=== PATIENT | male | born 1970 | race Caucasian/White ===

== ENCOUNTER 2017-07-31 07:23 | Outpatient (CLI) | payer BC ==
--- NOTE | 2017-07-31 11:07 | MRI ---
MRI ABDOMEN WITHOUT CONTRAST MRCP: Date: 07/31/17 HISTORY: Pancreatitis. FINDINGS: Correlation is made with the CT scan of 05/26/16. The liver demonstrates signal dropout on the [id number] imaging compared to the in-phase imaging, consistent with diffuse fatty infiltration. There is a 6.0 mm cyst in the dome of the liver. A tiny cyst is also seen in the left lobe of the liver. No abnormal biliary ductal dilatation is seen. The patient is post cholecystectomy. The spleen measures 12.5 cm in length. The pancreas, adrenal glands , and left kidney are normal. There are cysts in the right kidney, the largest measuring 2.3 cm. No peripancreatic inflammatory changes or fluid are seen. No free fluid is seen in the abdomen. No c holedocholithiasis is noted. Pancreatic duct is of normal caliber. No lymphadenopathy seen in the ab domen. There is no evidence of aneurysmal dilatation of the abdominal aorta. Bone marrow signal is n ormal. There is a 1.5 cm cystic lesion/fluid collection in the retroperitoneum just below the home theater experience expert ior abdominal wall at the level of the superior pole of the right kidney, which was also seen on the CT scan of 05/26/16. IMPRESSION: 1. Fatty liver. 2. Status post cholecystectomy without evidence of abnormal biliary ductal dilatation or choledocho lithiasis. 3. Right renal and tiny hepatic cysts. POS: [facility]
--- OUTSIDE RECORDS SUMMARY | 2017-08-01 00:51 | XMS | Clinical Summary ---
:1970 Author Organization [facility] Address [address] [place] [address] Phone Care Team Providers Name Role Phone , Primary Care Provider Unavailable Allergies Active Allergy Reactions Severity Noted Date Comments Lorazepam High 08/15/2015 Hallucinations Meperidine Anaphylaxis High 12/13/2013 Erythromycin Rash Low 12/13/2013 Tetracyclines Rash Low 12/13/2013 Current Medications Prescription Sig. Disp. Refills Start Date End Date Status rizatriptan (MAXALT-CUTCH CLEANER) Take 10 mg by Active 10 MG disintegrating mouth as needed. tablet May repeat in 2 hours if needed ondansetron (ZOFRAN) 4 Take 1 tablet (4 30 tablet 1 12/16/2013 Active MG tablet mg total) by mouth 3 (three) times daily as needed for Nausea. [id number]-ricmzteq-yhvccsz Take 72,000 Active (CREON) 36,000-114,000- units of lipase 180,000 unit CpDR by mouth 3 capsule (three) times daily. traMADol (ULTRAM-ER) 200 Take 200 mg by Active MG 24 hr tablet mouth daily. Active Problems Problem Noted Date Abdominal pain 12/14/2013 Social History Tobacco Use Types Packs/Day Years Used Date Never Smoker Smokeless Tobacco: Never Used Alcohol Use Drinks/Week oz/Week Comments No Sex Assigned at Date Recorded Not on file Last Filed Vital Signs Vital Sign Reading Time Taken Blood Pressure 124/96 08/15/2015 6:15 PM A CLASS LINEMAN Pulse 67 08/15/2015 6:15 PM A CLASS [facility]EMAN Temperature 36.6 C (97.9 F) 08/15/2015 6:05 PM A CLASS LINEMAN Respiratory Rate 18 08/15/2015 6:15 PM A CLASS LINEMAN Oxygen Saturation 95% 08/15/2015 6:15 PM A CLASS LINEMAN Inhaled Oxygen Concentration - - Weight 118.9 kg (262 lb 2 oz) 08/15/2015 12:25 PM A CLASS LINEMAN Height 185.4 cm (6' 1") 08/15/2015 12:25 PM A CLASS LINEMAN Body Mass Index 34.58 08/15/2015 12:25 PM A CLASS LINEMAN Plan of Treatment Not on file Implants Implanted Type Area Cast Iron Dipper Device Expiration Model / Identifier Date Serial / Lot Stent,Pancreatic Set Geenen 5fr 9cm - [id number] Stents-[facility] [id number] / Implanted:Qty: 1 on 12/14/2013 by Derik Cortés MD ripheral / [id number] Stent,Pancreatic Set Geenen 5fr 3cm - [id number] Stents-[facility] [id number] / Implanted:Qty: 2 on 12/14/2013 by Derik Cortés MD ripheral / [id number] Naviflex Panc Del Sys 7fr Rx - [id number] Stents-[facility] 12/03/2015 3506 / Implanted:Qty: 1 on 08/15/2015 by Derik Cortés MD ripheral SCI: [id number] / LOGY [id number] Results Not on filefrom Last 3 Months
== END 2017-07-31 07:24 | disposition home or self-care (01) ==
LOC: MRI 07:23
PROVIDERS: ATTEND Internal Medicine Gastroenterology
DX: K85.90 Acute pancreatitis without necrosis or infection, unspecified (principal); R10.11 Right upper quadrant pain; K76.0 Fatty (change of) liver, not elsewhere classified; K80.50 Calculus of bile duct without cholangitis or cholecystitis without obstruction; N28.1 Cyst of kidney, acquired; K76.89 Other specified diseases of liver; Z90.49 Acquired absence of other specified parts of digestive tract
CPT/HCPCS: 74181

== ENCOUNTER 2018-04-17 06:24 | Inpatient (IN) | payer OTHER, BC ==
[2018-04-17] MEDS ORDERED: Promethazine HCl 25 MG/ML VIAL ONE (06:36)
[2018-04-17 07:07] LABS: #Basophils 0.1 thou/uL (0.0-0.2); #Lymphocytes 1.2 thou/uL (1.20-3.40); #Monocytes 0.5 thou/uL (0.11-0.59); #Neutrophils 8.3 thou/uL (1.40-6.50); %Basophils 0.8 % (0.0-1.0); %Lymphocytes 11.5 % (21.0-51.0); %Monocytes 4.7 % (0.0-10.0); %Neutrophils 82.9 % (42.0-75.0); Hemoglobin 19.2 g/dL (14.0-18.0); Mean Corpuscular Hemoglobin 29.5 pg (27.0-31.0); Mean Corpuscular Volume 84.3 fL (78.0-98.0); Mean Platelet Volume 8.5 fL (7.4-10.4); Platelet Count 184 thou/uL (130-400); RBC Distribution Width 11.4 % (11.5-14.5)
[2018-04-17 07:16] LABS: ALT (SGPT) 42 U/L (8-55); AST (SGOT) 29 U/L (5-34); Albumin 4.6 g/dL (3.5-5.0); Alkaline Phosphatase 98 U/L (40-150); Anion Gap 16 mmol/L (10-20); BUN (Urea Nitrogen) 16 mg/dL (8.9-20.6); Bilirubin, Total 1.1 mg/dL (0.2-1.2); Calc. Creatinine Clearance 0 mL/min (70-130); Calcium 9.3 mg/dL (7.8-10.44); Carbon Dioxide 19 mmol/L (22-29); Chloride 109 mmol/L (98-107); Estimated GFR-MDRD 70; Globulin 3.2 g/dL (2.4-3.5); Glucose 136 mg/dL (70-105); Lipase 17 U/L (8-78); Potassium 3.9 mmol/L (3.5-5.1); Protein, Total 7.8 g/dL (6.0-8.3); Sodium 140 mmol/L (136-145)
--- NOTE | 2018-04-17 07:46 | RAD ---
ACUTE ABDOMINAL SERIES: Date: 04/17/18 INDICATION: Cholecystectomy, abdominal pain, and vomiting. FINDINGS: There is mild right basilar atelectasis. Bowel gas pattern is unobstructed. There are cholecystectomy clips within the right upper quadrant. No acute osseous abnormality is evident. IMPRESSION: No acute abnormality. POS: [facility]
[2018-04-17 07:55] LABS: CKMB 1.2 ng/mL (0-6.6); Troponin I Less than 0.010 ng/mL (< 0.028)
--- NOTE | 2018-04-17 09:58 | CT ---
ABDOMEN AND PELVIS CT NONCONTRAST: CLINICAL HISTORY: Nausea and vomiting. Abdominal pain. COMPARISON: 05/26/2016 FINDINGS: There is no evidence of urolithiasis or obstructive uropathy. The bowel is incompletely evaluated wi thout IV or enteric contrast. There is a stable, approximately 13 mm in diameter soft tissue nodule of the posterior right retroperitoneum. There is splenic granulomatous calcification, evidence of a prior cholecystectomy. Prostate calcifications are present. Imaged lung bases again reveal areas of interstitial and ground glass opacity and granulomatous calcification. There is scattered osseous d egenerative change. IMPRESSION: 1. No urolithiasis or obstructive uropathy. 2. Stable soft tissue nodule of the posterior retroperitoneum. 3. Evaluation otherwise limited on the basis of the noncontrast technique. POS: [facility]
[2018-04-17 11:32] VITALS: BMI 36.6
[2018-04-17] MEDS ORDERED: Sodium Chloride 0.9% 1,000 ML IV SCH (12:15)
[2018-04-17] MEDS ORDERED: HYDROcodone/Acetaminophen 7.5/325 mg Tablet PO PRN (12:52)
--- NOTE | 2018-04-17 13:28 | HP ---
DATE OF ADMISSION: 04/17/2018 CHIEF COMPLAINT: Abdominal pain. 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 The patient usually gets 3 stents in his com mon bile duct, which was the procedure he has been used to at one of the [facility] nics, and the patient has a close followup with Dr. Barnett here in Clinic in [place]. The gt moran was in his usual state of health until yesterday he developed sudden onset of abdominal pain wi th nausea, vomiting, and diarrhea. Most of his symptoms are exacerbation start this way, but patient did take antibiotic 2 months ago for his right ear infection. The patient states he has 3-4 episode s of diarrhea, which is watery in nature, with no fevers or no chills. Denies having any chest pain at this time. Denies having any dizziness or headache. No neck stiffness. No burning on passing ur ine. No blood in the stool. Abdominal pain is located in the right upper quadrant, nonradiating, pa in of 9 on 10 intensity, only relieved with Dilaudid which he got in the emergency room. The patient had a history of gallbladder removal in the past. Otherwise, he has no other known comorbidities. 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 PAST SURGICAL HISTORY: History of cholecystectomy and appendectomy. SOCIAL HISTORY: The patient is not a nonsmoker. No history of alcohol, no history of illicit drug u se. FAMILY HISTORY: The patient has a family history of type 2 diabetes mellitus in one of the family me mbers. ALLERGIES: DEMEROL, ERYTHROMYCIN, and TETRACYCLINE. HOME MEDICATIONS: The patient is on Zofran at home. REVIEW OF SYSTEMS: All 12 systems are reviewed with the patient thoroughly and found to be negative at this time except the ones described in HPI. Constitutional: Weight loss or gain, sense of well-being, ability to conduct usual activities, exerc ise tolerance. Skin/Breast: Rash, itching, changes in hair growth or loss, nail changes, breast lumps, tenderness, swelling, nipple discharge. Eyes: Vision, double vision, tearing, blind spots, pain. ENT/Mouth: Headaches (location, time of onset, duration, precipitating factors), vertigo, lightheadedness, injury. Vision, double vision, tearing, blind spots, pain, nose b leeding, colds, obstruction, discharge, dental difficulties, gingival bleeding, dentures, neck stiffn ess, pain, tenderness, masses in thyroid or other areas Cardiovascular: Precordial pain, substernal distress, palpitations, syncope, dyspnea on exertion, or thopnea, nocturnal paroxysmal dyspnea, edema, cyanosis, hypertension, heart murmurs, varicosities, ph lebitis, claudication. Respiratory: Pain, shortness of breath, wheezing, stridor, cough, hemoptysis, fever or night sweats Gastrointestinal: Poor appetite, dysphagia, indigestion, abdominal pain, heartburn, eructation, naus ea, vomiting, hematemesis, jaundice, constipation, or diarrhea, abnormal stools (lucía-colored, tarry, bloody, greasy, foul smelling), flatulence, hemorrhoids, recent changes in bowel habits. Genitourinary: Urgency, frequency, dysuria, nocturia, hematuria, polyuria, oliguria, unusual (or tenzin nge in) color of urine, stones, hesitancy, change in size of stream, dribbling, acute retention or in continence, libido, potency. Musculoskeletal: Pain, swelling, redness or heat of muscles or joints, limitation, of motion, muscular weakness, atrophy, cramps. Neurologic/Psychiatric: Convulsions, paralyses, tremor, incoordination, parasthesias, difficulties w ith memory of speech, sensory or motor disturbances, or muscular coordination (ataxia, tremor), emoti onal problems, anxiety, depression, previous psychiatric care, unusual perceptions, hallucinations. Allergy/Immunologic: Skin rash, anemia, bleeding tendency, polydipsia, polyuria, intolerance to heat or cold. PHYSICAL EXAMINATION: VITAL SIGNS: Blood pressures are 118/72, heart rate is 98, respiratory rate 20, saturation 92%. GENERAL: The patient is moderately built and moderately nourished, does not appear to be in acute di stress at this time. He is alert and oriented x3. HEENT: Atraumatic, normocephalic. PERRLA. Extraocular muscles intact. Oral mucosa pink and moist. CARDIOVASCULAR: S1, S2 normal. No murmurs, rubs or gallops. LUNGS: Bilateral air entry was equal. No wheezing, no crackles. ABDOMEN: Distended. Tenderness noted in the right upper quadrant. No guarding, no rebound tenderne ss. Bowel sounds were normal. MUSCULOSKELETAL: No calf tenderness. No pedal edema. No joint tenderness, no joint swelling. SKIN: No cyanosis, no erythema, no rash, no pallor. CENTRAL NERVOUS SYSTEM: Cranial nerve examination II-XII intact. No focal deficits were noted. LABORATORY DATA: Sodium 140, potassium 3.9, chloride 109, BUN is 16, creatinine 1.12, blood sugar is 136. WBC 10.0, hemoglobin is 19.2, hematocrit is 54.8. ASSESSMENT AND PLAN: 1. Acute on chronic pancreatitis. 2. Severe dehydration. 3. Hemoconcentration and polycythemia. 4. Severe abdominal pain. PLAN: 1. Plan is to start the patient on IV fluids 200 mL an hour. I discussed the case with Dr. Mitchell. The patient has a history of recurrent pancreatitis with no elevation of his pancreatic enzymes, whi ch is his usual symptoms which he has as the as a sphincter of Oddi dysfunction. So the plan is to t reat with IV pain medications with Dilaudid DAIRY FEED MIXING OPERATOR as the patient is requesting which is the only medica tion which helps him. At this point, we will consult anesthesia for the Dilaudid DAIRY FEED MIXING OPERATOR pump. 2. The patient has a markedly elevated hemoglobin with hemoconcentration. At this time, we will luis eduardo at this as a hemoconcentration, but we will evaluate with a serum ferritin and iron levels. Need to rule out any evidence of hemochromatosis. Hemochromatosis contributing to his right upper quadrant p ains. 3. The patient is severely dehydrated. As I explained above, we will closely monitor the urine outp ut. 4. DVT prophylaxis, Lovenox 40 mg subcu. I spent 75 minutes with this patient.
[2018-04-17] MEDS: Ketorolac Tromethamine 30 MG/ML VIAL IVP PRN ×2 (13:48→21:30)
[2018-04-17] MEDS: Sodium Chloride 0.9% 1,000 ML IV SCH ×3 (13:52→21:34)
[2018-04-17 14:04] LABS: Iron 61 ug/dL (65-175); Iron Binding Capacity, Total 244 mcg/dL (261-462)
[2018-04-17] MEDS: Promethazine HCl 25 MG/ML VIAL SLOW IVP PRN ×2 (14:31→21:32)
[2018-04-17] MEDS ORDERED: Naloxone HCl 0.4 mg/ml Vial IV PRN (16:19)
[2018-04-17] MEDS ORDERED: diphenhydrAMINE 25 MG CAP PO PRN (16:23)
[2018-04-17] MEDS ORDERED: Promethazine HCl 25 MG/ML VIAL IM PRN (16:23)
[2018-04-17] MEDS ORDERED: Zolpidem Tartrate 5 MG TAB PO PRN (16:23)
[2018-04-17] MEDS: HYDROmorphone 10 mg/100 ml CADD IV PRN (17:27)
[2018-04-17] MEDS: Ondansetron HCl/PF 4 MG/2 ML Vial IVP PRN (17:43)
[2018-04-18] MEDS: Ondansetron HCl/PF 4 MG/2 ML Vial IVP PRN ×4 (01:05→18:19)
[2018-04-18] MEDS: Sodium Chloride 0.9% 1,000 ML IV SCH ×4 (03:45→20:00)
[2018-04-18] MEDS: Promethazine HCl 25 MG/ML VIAL SLOW IVP PRN ×4 (04:48→21:32)
[2018-04-18] MEDS: Ketorolac Tromethamine 30 MG/ML VIAL IVP PRN ×2 (04:48→18:18)
--- NOTE | 2018-04-18 04:57 | CON ---
DATE OF CONSULTATION: 04/17/2018 REASON FOR CONSULTATION: Abdominal pain. HISTORY OF PRESENT ILLNESS: Mr. Oliveros is a pleasant 47-year-old gentleman with a past medical hist ory of chronic pancreatitis of idiopathic etiology. He has previous treatments with cholecystectomy about 9 years ago. He did have a pancreatic sphincterotomy for diagnosis of sphincter of Oddi dysfun ction. He has previously had pancreatic stent placements on and off in [place], [place], the [facility] and then after moving here, I had him see Dr. Derik Cortés in [place]. He had pancreatit is since then and in early 2014, I removed those biliary stents. He has done well since that time [facility] for the admission in 08/2015 and intermittent bouts of abdominal pain, which has been attributed to chronic pancreatitis. He had a stent replaced in 08/2015 and ultimately after 8 weeks the stent fell out on its own and did not have to be removed. He reports that beginning last night after eating a [employer], he had severe right upper quadrant a bdominal pain, some radiation to the back, some vomiting, and diarrhea. He tried to treat this at [facility] with Bentyl and Zofran, but it did not improve, he continued to have vomiting through the night un til ultimately came to the emergency room. His son was ill too, but got better much more quickly. I n the emergency room, blood pressure is 139/79, pulse 112. He is afebrile. He was given 2 liters of fluid, Dilaudid, and Phenergan. LABORATORY DATA AND X-RAY FINDINGS: Labs are drawn, which showed white count of 10, hemoglobin of 19 .2. His baseline hemoglobin is about 16 to 17. He had platelet count of 184. His base met profile was notable for sodium 140, potassium 3.9, bicarbonate 19, chloride 109, BUN and creatinine were 16 a nd 1.2, glucose was 136. Liver function tests were normal. Lipase was 17, AST was 29, ALT was 42, a lkaline phosphatase 98, total protein 7.8. Albumin was 4.6. PAST MEDICAL HISTORY: Chronic pancreatitis with history as outlined above, it is felt to be idiopath ic, extensive evaluations of pancreatic stent [place] and [facility] were negative here. We did obtain celiac testing and testing for autoimmune hepatitis, which were normal. He has had do cumented scarring of the pancreas on endoscopic ultrasound. Issues that cause flares were unknown. Left renal calculi with ureteral colic in 05/2016. PAST SURGICAL HISTORY: Cholecystectomy, arthroscopic knee surgery, pancreatic duct stents in the pas t, multiple times. ALLERGIES: TETRACYCLINE, ATIVAN, ERYTHROMYCIN, AZATHIOPRINE, and DEMEROL. MEDICATIONS HERE: Lovenox, [place], normal saline at 200 an hour. SOCIAL HISTORY: Negative for alcohol, drugs, tobacco. FAMILY HISTORY: Negative for familial pancreatitis, pancreatic disease, Crohn's or inflammatory kerry l disease or autoimmune diseases. REVIEW OF SYSTEMS: Negative for weight loss, fever, chills, hematemesis, melena, hematochezia, short ness of breath, dyspnea on exertion, cough, wheezing, chest pain, orthopnea, dyspnea, palpitations, o r arrhythmias, lower extremity swelling unifocal or muscle weaknesses, seizures, spasms, rashes, prur itus, or icterus. There are no urinary symptoms. There is no dysuria, frequency, or urgency. PHYSICAL EXAMINATION: GENERAL: Patient is resting comfortably in bed. VITAL SIGNS: Temperature is 98.1, pulse 98, blood pressure 118/72, respirations 18, O2 sat 92%. HEENT: Oropharynx without lesions, mouth is moist. NECK: Supple. LUNGS: Clear. HEART: Regular and rhythm without clicks or murmurs. ABDOMEN: Mildly tender without any guarding or rebound. Positive bowel sounds are noted. EXTREMITIES: No clubbing, cyanosis, or edema. SKIN: No rash or lesions. Laboratory studies as noted per HPI. Previous imaging MRCP in 07/2017 showed no evidence of pancreat ic duct dilatation or strictures. Acute abdominal series on 04/17/2018, normal. I reviewed those films. CAT scan from 04/17/2018. He has no signs of pancreatic inflammation, peripancreatic fat stranding, or edema. Normal perfusion o f pancreas. No ductal dilatation, otherwise the abdomen is normal without any acute findings. This was a scan without contrast, therefore was limited. ASSESSMENT: Recurrence of typical abdominal pain with his flares in his chronic pancreatitis pain. These have been well documented in the past. There are no alarm features with his labs or imaging st udies. Clinically, he states his symptoms are exactly identical as they have been in the past. RECOMMENDATIONS: 1. Aggressive IV resuscitation 200 mL an hour and today he has had about 5 liters of fluid. 2. Pain control in the past. He has actually taken the MICROWAVE TECHNICIAN pump to get his pain under control. I t hink it is reasonable to just go ahead and start that now. He does not typically take pain medicines the hospital pain medications. 3. Ulcer prophylaxis with Protonix. 4. When he goes home and he goes on pancreatic enzymes, it may be helpful to prevent bouts of attack s of pain. I will be out over the weekend and next week, Dr. Whatley and other partners will be co vering over the next several days.
[2018-04-18] MEDS: Pantoprazole 40 MG VIAL IVP SCH (08:24)
[2018-04-18] MEDS: Enoxaparin Sodium 40 MG/0.4 ML SYRINGE SC SCH (08:24)
[2018-04-18] MEDS: HYDROmorphone 10 mg/100 ml CADD IV PRN (13:58)
--- NOTE | 2018-04-18 16:41 | PDOC.PN ---
- Subjective Encounter Start Date: 04/18/18 Encounter Start Time: 08:00 Patient Seen today, alert and oriented. persistant abdominal pain relieved on BELLMAKER. - Objective Resuscitation Status: Resuscitation Status FULL:Full Resuscitation MAR Reviewed: Yes Vital Signs & Weight: Vital Signs (12 hours) Temp Pulse Resp BP Pulse Ox 04/18/18 11:38 98.3 F 78 16 142/93 H 97 04/18/18 08:00 97.7 F 86 20 138/94 H 98 Weight Weight 278 lb I&O: 04/17/18 04/18/18 04/19/18 06:59 06:59 06:59 Intake Total 1600 Balance 1600 Result Diagrams: 04/17/18 06:30 04/17/18 06:30 Radiology Reviewed by me: Yes Phys Exam - Physical Examination HEENT: PERRLA, moist MMs Neck: no nodes, no JVD Respiratory: wheezing present Cardiovascular: RRR, no significant murmur Gastrointestinal: soft, non-tender Musculoskeletal: no edema, pulses present Lymphatic: no nodes Psychiatric: normal affect, A&O x 3 Skin: no rash, normal turgor Dx/Plan (1) Acute pancreatitis Code(s): K85.9 - ACUTE PANCREATITIS, UNSPECIFIED * DO NOT USE * Status: Acute Comment: Acute on chronic Pancreatitis. Will continue with IV hydration, and BELLMAKER. Follow GI recommeations. No plans for Billiary stents. (2) Pain Code(s): R52 - PAIN, UNSPECIFIED Status: Acute Comment: COntinue on BELLMAKER, pt has low pain tolerance. (3) RUQ abdominal pain Code(s): R10.11 - RIGHT UPPER QUADRANT PAIN Status: Acute Comment: No evidence of hemochromaosis, normal Feritin and iron levels, (4) Dyslipidemia Code(s): E78.5 - HYPERLIPIDEMIA, UNSPECIFIED Status: Chronic (5) Obesity (BMI 30.0-34.9) Code(s): E66.9 - OBESITY, UNSPECIFIED Status: Chronic - Plan cont current plan of care, PT/OT, social work manager, respiratory therapy, incentive spirometry, out of bed/ambulate, DVT proph w/lovenox * . Review of Systems - Review of Systems Constitutional: negative: fever, chills, sweats, weakness, malaise, other Eyes: negative: Pain, Vision Change, Conjunctivae Inflammation, Eyelid Inflammation, Redness, Other ENT: negative: Ear Pain, Ear Discharge, Nose Pain, Nose Discharge, Nose Congestion, Mouth Pain, Mouth Swelling, Throat Pain, Throat Swelling, Other Respiratory: Shortness of Breath, SOB with Excertion. negative: Cough, Dry, Hemoptysis, Pleuritic Pain, Sputum, Wheezing Cardiovascular: negative: chest pain, palpitations, orthopnea, paroxysmal nocturnal dyspnea, edema, light headedness, other Gastrointestinal: Nausea, Abdominal Pain Musculoskeletal: negative: Neck Pain, Shoulder Pain, Arm Pain, Back Pain, Hand Pain, Leg Pain, Foot Pain, Other Skin: negative: Rash, Lesions, Mukesh, Bruising, Other - Medications/Allergies Allergies/Adverse Reactions: Allergies Allergy/AdvReac Type Severity Reaction Status Date / Time meperidine HCl [From Demerol] Allergy Severe Anaphylaxis Verified 04/17/18 11:29 azithromycin Allergy Rash Verified 04/17/18 11:29 erythromycin base Allergy Rash Verified 04/17/18 11:29 [Erythromycin Base] lorazepam [From Ativan] Allergy Verified 04/17/18 11:29 tetracycline [Tetracycline] Allergy Rash Verified 04/17/18 11:29 Medications: Current Medications Hydrocodone Bitart/Acetaminophen ([place] 7.5/325) 1 tab PO Q4H PRN PRN Reason: Moderate Pain (4-6) Albuterol Sulfate (Ventolin) 2.5 mg NEB Q2H PRN PRN Reason: Wheezing Diphenhydramine HCl (Benadryl) 25 mg IM/IV Q3H PRN PRN Reason: Itching Diphenhydramine HCl (Benadryl) 25 mg PO Q3H PRN PRN Reason: Itching Enoxaparin Sodium (Lovenox) 40 mg SC 0900 [facility] Last Admin: 04/18/18 08:24 Dose: 40 mg Hydromorphone HCl (Dilaudid Cadd) 0 mg IV INF PRN PRN Reason: Pain Last Admin: 04/18/18 13:58 Dose: 10 mg Sodium Chloride (Normal Saline 0.9%) 1,000 mls @ 200 mls/hr IV .Q5H [facility] Last Admin: 04/18/18 16:25 Dose: Not Given Ketorolac Tromethamine (Toradol) 30 mg IVP Q6H PRN PRN Reason: Pain Stop: 04/22/18 13:24 Last Admin: 04/18/18 04:48 Dose: 30 mg Naloxone HCl (Narcan) 0.2 mg IV Q5MIN PRN PRN Reason: RR <8 or pt obtun/unarousable Ondansetron HCl (Zofran) 4 mg IVP Q6H PRN PRN Reason: Nausea/Vomiting (1ST LINE) Last Admin: 04/18/18 14:00 Dose: 4 mg Pantoprazole Sodium (Protonix) 40 mg IVP DAILY MYRNA Last Admin: 04/18/18 08:24 Dose: 40 mg Promethazine HCl (Phenergan) 25 mg SLOW IVP Q6H PRN PRN Reason: Nausea (2ND LINE) Last Admin: 04/18/18 11:23 Dose: 25 mg Promethazine HCl (Phenergan) 12.5 mg IM Q4H PRN PRN Reason: Nausea/Vomiting Zolpidem Tartrate (Ambien) 5 mg PO HSPRN PRN PRN Reason: Insomnia Last Admin: 04/17/18 21:40 Dose: 5 mg
--- NOTE | 2018-04-18 17:28 | RAD ---
PORTABLE CHEST 04/18/18 PROVIDED CLINICAL HISTORY: Shortness of breath. FINDINGS: Comparison 04/17/18. The cardiac and mediastinal silhouette is unchanged in appearance. No focal consolidation, pleural fl uid or pneumothorax apparent. IMPRESSION: No evidence for an acute cardiopulmonary process. POS: [facility]
[2018-04-18] MEDS ORDERED: Chloraseptic Spray 180 ml Bottle PO SCH (18:00)
--- NOTE | 2018-04-18 18:11 | PRG ---
DATE OF SERVICE: 04/18/2018 FOLLOWUP VISIT NOTE SUBJECTIVE: This is a 47-year-old man who is hospitalized with abdominal pain and also his tory of nausea, vomiting and diarrhea. The patient has prior history of recurrent pancreatitis placement done in the past. The patient's lipase is actually normal. He is feeling better today. He still has nausea, but no vomiting. His abdominal pain is less pain medication. He is on IV Phenergan for nausea. Pain is predominantly over the right upper quadrant. PHYSICAL EXAMINATION: GENERAL: Appears comfortable, in no acute distress. VITAL SIGNS: He is afebrile at temperature 98.3 degrees Fahrenheit, pulse is 78, blood pressure 142/ 93. CARDIOVASCULAR SYSTEM: First and second heart sounds normal. LUNGS: Clear to auscultation. ABDOMEN: Mildly distended, but soft. Abdomen is tender over the right upper quadrant. There is no rebound or guarding. No organomegaly or masses. Bowel sounds are normal. CLINICAL IMPRESSION: Abdominal pain and history of recurrent pancreatitis. At the present time, the re is no biochemical evidence of pancreatitis. Lipase is normal. Liver function tests are normal. RECOMMENDATIONS: 1. N.p.o. for one more day. 2. If symptoms improve, may consider clear liquid diet and advance diet as tolerated.
[2018-04-18] MEDS: Albuterol Sulfate 2.5 mg/3 ml Neb NEB PRN (20:19)
[2018-04-19] MEDS: diphenhydrAMINE 50 MG/ML VIAL IM/IV PRN ×5 (00:52→22:53)
[2018-04-19] MEDS: Ondansetron HCl/PF 4 MG/2 ML Vial IVP PRN ×4 (00:52→19:37)
[2018-04-19] MEDS: Ketorolac Tromethamine 30 MG/ML VIAL IVP PRN ×4 (00:53→19:36)
[2018-04-19] MEDS: Albuterol Sulfate 2.5 mg/3 ml Neb NEB PRN ×3 (00:58→10:50)
[2018-04-19] MEDS: Promethazine HCl 25 MG/ML VIAL SLOW IVP PRN ×4 (03:47→22:55)
[2018-04-19 05:27] LABS: Anion Gap 11 mmol/L (10-20); BUN (Urea Nitrogen) 10 mg/dL (8.9-20.6); Calc. Creatinine Clearance 179 mL/min (70-130); Calcium 8.4 mg/dL (7.8-10.44); Carbon Dioxide 24 mmol/L (22-29); Chloride 108 mmol/L (98-107); Estimated GFR-MDRD Greater than 90; Glucose 75 mg/dL (70-105); Potassium 4.3 mmol/L (3.5-5.1); Sodium 139 mmol/L (136-145)
[2018-04-19] MEDS: Pantoprazole 40 MG VIAL IVP SCH (10:10)
[2018-04-19] MEDS: Enoxaparin Sodium 40 MG/0.4 ML SYRINGE SC SCH (10:11)
[2018-04-19] MEDS: Sodium Chloride 0.9% 1,000 ML IV SCH ×2 (10:15→16:30)
[2018-04-19] MEDS ORDERED: Furosemide 20 MG/2 ML VIAL SLOW IVP SCH (10:45)
--- NOTE | 2018-04-19 14:41 | PRG ---
DATE OF SERVICE: 04/19/2018 HOSPITAL VISIT NOTE SUBJECTIVE: This is a 47-year-old male with history of recurrent pancreatitis, abdominal p ain, nausea, vomiting, and diarrhea. The patient is n.p.o. and on IV fluids. He is also on pain med ication, IV Phenergan. His abdominal pain is markedly lessened. He still has mild discomfort, but n ot as bad as before. However, he remains nauseous in spite of taking IV Phenergan. He is having loo se stools and he has had about 3-4 loose stools. There is no blood in the stool. PHYSICAL EXAMINATION: GENERAL: Appears comfortable. VITAL SIGNS: His temperature maximum 99.2 degrees Fahrenheit, pulse is 94, blood pressure 141/86. CARDIOVASCULAR: First and second heart sounds are normal. LUNGS: Clear to auscultation. ABDOMEN: Mildly distended, but soft. Abdomen is actually nontender today. Bowel sounds are active. LABORATORY DATA: Today chem-7 is actually normal. BUN is 16, glucose 136. RECOMMENDATIONS: 1. Discontinue n.p.o. 2. Clear liquid diet. 3. Continue pain medicines and Phenergan as needed.
[2018-04-19] MEDS: HYDROmorphone 10 mg/100 ml CADD IV PRN (15:23)
--- NOTE | 2018-04-19 18:04 | PDOC.PN ---
- Subjective Encounter Start Date: 04/19/18 Encounter Start Time: 18:00 Subjective: f/u for abd pain suspected due to sphincter of Oddi dysfunction. Trial of -: clear liquids unsuccessful today. Remains on MANAGER OF LEARNING with Dilaudid. -: Diarrhea resolving. - Objective Resuscitation Status: Resuscitation Status FULL:Full Resuscitation MAR Reviewed: Yes Vital Signs & Weight: Vital Signs (12 hours) Temp Pulse Resp BP Pulse Ox 04/19/18 14:56 94 12 04/19/18 10:50 96 12 04/19/18 08:00 99.2 F 94 18 95 04/19/18 07:25 99.2 F 94 18 141/86 H 95 04/19/18 06:42 88 16 Weight Weight 278 lb I&O: 04/18/18 04/19/18 04/20/18 06:59 06:59 06:59 Intake Total 1600 28.5 240 Balance 1600 28.5 240 Result Diagrams: 04/17/18 06:30 04/19/18 04:58 Additional Labs: Laboratory Tests 04/17/18 06:30 AST 29 ALT 42 Alkaline Phosphatase 98 Lipase 17 Phys Exam - Physical Examination Constitutional: NAD HEENT: PERRLA, sclera anicteric, oral pharynx no lesions Neck: no nodes, no JVD, supple, full ROM Respiratory: no wheezing, no rales, no rhonchi, clear to auscultation bilateral Cardiovascular: RRR, no significant murmur, no rub, gallop mild TTP in RUQ Gastrointestinal: soft, no distention, positive bowel sounds Musculoskeletal: no edema, pulses present Neurological: non-focal, normal sensation, moves all 4 limbs Psychiatric: normal affect, A&O x 3 Skin: no rash, normal turgor, cap refill <2 seconds Dx/Plan (1) RUQ abdominal pain Code(s): R10.11 - RIGHT UPPER QUADRANT PAIN Status: Acute Comment: Suspected secondary to #2, #3, improved, continue supportive mgmt (2) Acute on chronic pancreatitis Code(s): K85.90 - ACUTE PANCREATITIS WITHOUT NECROSIS OR INFECTION, UNSP; K86.1 - OTHER CHRONIC PANCREATITIS Status: Chronic Comment: Suspected, normal lipase levels noted on admission? 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
[2018-04-20] MEDS: Sodium Chloride 0.9% 1,000 ML IV SCH ×4 (00:52→21:26)
[2018-04-20] MEDS: Ketorolac Tromethamine 30 MG/ML VIAL IVP PRN ×3 (03:55→17:39)
[2018-04-20] MEDS: Ondansetron HCl/PF 4 MG/2 ML Vial IVP PRN ×3 (03:55→17:39)
[2018-04-20] MEDS: Promethazine HCl 25 MG/ML VIAL SLOW IVP PRN ×3 (06:29→21:17)
[2018-04-20] MEDS: Enoxaparin Sodium 40 MG/0.4 ML SYRINGE SC SCH (09:41)
[2018-04-20] MEDS: Pantoprazole 40 MG VIAL IVP SCH (09:41)
[2018-04-20] MEDS: HYDROmorphone 10 mg/100 ml CADD IV PRN (12:38)
[2018-04-20] MEDS: diphenhydrAMINE 50 MG/ML VIAL IM/IV PRN (12:48)
--- NOTE | 2018-04-20 18:18 | PRG ---
DATE OF SERVICE: 04/20/2018 SUBJECTIVE: The patient is continuing to have abdominal pain. He has no appetite. He also has some nausea, but has not vomited. He continues to have bowel movements what he say are loose. OBJECTIVE: VITAL SIGNS: Temperature 98.1, pulse 95, respiratory rate 16, blood pressure 136/97. CHEST: Clear. CARDIOVASCULAR: Regular rate and rhythm. ABDOMEN: Soft, nontender, without organomegaly or masses. LABORATORY DATA: Shows a normal BMP yesterday. ASSESSMENT: Chronic pancreatitis - slow improvement. PLAN: 1. Continue clear liquids. 2. Continue analgesics. 3. Continue antiemetics. 4. We will repeat some labs.
--- NOTE | 2018-04-20 18:50 | PDOC.PN ---
- Subjective Encounter Start Date: 04/20/18 Encounter Start Time: 17:00 Subjective: f/u for acute/chronic pancreatitis due to sphincter of Oddi dysfunction. -: Overall feels a better. Tolerating small amount clear liquid. Not eating -: regular food. + BM - Objective Resuscitation Status: Resuscitation Status FULL:Full Resuscitation MAR Reviewed: Yes Vital Signs & Weight: Vital Signs (12 hours) Temp Pulse Resp BP Pulse Ox 04/20/18 18:08 93 18 96 04/20/18 15:45 97.3 F L 89 16 142/91 H 96 04/20/18 14:12 95 16 97 04/20/18 12:24 98.1 F 90 16 136/97 H 95 04/20/18 10:21 95 16 98 04/20/18 08:00 97.6 F 94 16 92 L 04/20/18 07:51 97.6 F 94 16 135/76 97 Weight Weight 278 lb I&O: 04/19/18 04/20/18 04/21/18 06:59 06:59 06:59 Intake Total 28.5 1440 Balance 28.5 1440 Result Diagrams: 04/17/18 06:30 04/19/18 04:58 Phys Exam - Physical Examination Constitutional: NAD HEENT: PERRLA, sclera anicteric, oral pharynx no lesions Neck: no nodes, no JVD, supple, full ROM Respiratory: no wheezing, no rales, no rhonchi, clear to auscultation bilateral Cardiovascular: RRR, no significant murmur, no rub, gallop Gastrointestinal: soft, non-tender, no distention, positive bowel sounds Musculoskeletal: no edema, pulses present Neurological: non-focal, normal sensation, moves all 4 limbs Psychiatric: normal affect, A&O x 3 Skin: no rash, normal turgor, cap refill <2 seconds Dx/Plan (1) RUQ abdominal pain Code(s): R10.11 - RIGHT UPPER QUADRANT PAIN Status: Acute Comment: Suspected secondary to #2, #3, improved, continue supportive mgmt (2) Acute on chronic pancreatitis Code(s): K85.90 - ACUTE PANCREATITIS WITHOUT NECROSIS OR INFECTION, UNSP; K86.1 - OTHER CHRONIC PANCREATITIS Status: Chronic Comment: Suspected, normal lipase levels noted on admission? 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
[2018-04-20] MEDS: Zolpidem Tartrate 5 MG TAB PO PRN (22:55)
[2018-04-21] MEDS: Zolpidem Tartrate 5 MG TAB PO PRN (00:41)
[2018-04-21] MEDS: Ketorolac Tromethamine 30 MG/ML VIAL IVP PRN ×3 (00:42→17:04)
[2018-04-21] MEDS: Ondansetron HCl/PF 4 MG/2 ML Vial IVP PRN ×3 (00:45→17:04)
[2018-04-21 04:37] LABS: #Eosinphils 0.2 thou/uL (0.0-0.7); #Lymphocytes 1.3 thou/uL (1.20-3.40); #Monocytes 0.5 thou/uL (0.11-0.59); #Neutrophils 2.5 thou/uL (1.40-6.50); %Basophils 0.1 % (0.0-1.0); %Lymphocytes 28.8 % (21.0-51.0); %Monocytes 10.4 % (0.0-10.0); %Neutrophils 55.7 % (42.0-75.0); Hemoglobin 14.1 g/dL (14.0-18.0); Mean Corpuscular HGB CONC 34.7 g/dL (32.0-36.0); Mean Corpuscular Hemoglobin 30.8 pg (27.0-31.0); Mean Corpuscular Volume 88.7 fL (78.0-98.0); Mean Platelet Volume 7.1 fL (7.4-10.4); Platelet Count 148 thou/uL (130-400); RBC Distribution Width 12.8 % (11.5-14.5); Red Blood Cell (RBC) Count 4.58 mill/uL (4.70-6.10); White Blood Cell (WBC) Count 4.5 thou/uL (4.8-10.8)
[2018-04-21] MEDS: Promethazine HCl 25 MG/ML VIAL SLOW IVP PRN ×2 (05:39→11:32)
[2018-04-21] MEDS: Sodium Chloride 0.9% 1,000 ML IV SCH ×2 (05:44→16:15)
[2018-04-21] MEDS: Pantoprazole 40 MG VIAL IVP SCH (09:19)
[2018-04-21] MEDS: Enoxaparin Sodium 40 MG/0.4 ML SYRINGE SC SCH (09:20)
[2018-04-21] MEDS: diphenhydrAMINE 50 MG/ML VIAL IM/IV PRN ×2 (11:32→17:13)
[2018-04-21] MEDS: HYDROmorphone 10 mg/100 ml CADD IV PRN (16:14)
--- NOTE | 2018-04-21 17:22 | PDOC.PN ---
- Subjective Encounter Start Date: 04/21/18 Encounter Start Time: 17:20 Subjective: f/u for acute/chronic pancreatitis due to sphincter of Oddi dsyfunction. -: Remains on Dilaudid DEBT COUNSELOR pump. - Objective Resuscitation Status: Resuscitation Status FULL:Full Resuscitation MAR Reviewed: Yes Vital Signs & Weight: Vital Signs (12 hours) Temp Pulse Resp BP Pulse Ox 04/21/18 14:25 85 16 04/21/18 08:00 97.4 F L 84 16 152/87 H 96 04/21/18 06:43 86 16 93 L Weight Weight 278 lb I&O: 04/20/18 04/21/18 04/22/18 06:59 06:59 06:59 Intake Total 1440 600 Balance 1440 600 Result Diagrams: 04/21/18 04:08 04/19/18 04:58 Phys Exam - Physical Examination Constitutional: NAD HEENT: PERRLA, sclera anicteric, oral pharynx no lesions Neck: no nodes, no JVD, supple, full ROM Respiratory: no wheezing, no rales, no rhonchi, clear to auscultation bilateral Cardiovascular: RRR, no significant murmur, no rub, gallop Gastrointestinal: soft, non-tender, no distention, positive bowel sounds Musculoskeletal: no edema, pulses present Neurological: non-focal, normal sensation, moves all 4 limbs Psychiatric: normal affect, A&O x 3 Skin: no rash, normal turgor, cap refill <2 seconds Dx/Plan (1) RUQ abdominal pain Code(s): R10.11 - RIGHT UPPER QUADRANT PAIN Status: Acute Comment: Suspected secondary to #2, #3, improved, continue supportive mgmt (2) Acute on chronic pancreatitis Code(s): K85.90 - ACUTE PANCREATITIS WITHOUT NECROSIS OR INFECTION, UNSP; K86.1 - OTHER CHRONIC PANCREATITIS Status: Chronic Comment: Suspected, normal lipase levels noted on admission? 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
--- NOTE | 2018-04-21 19:17 | PRG ---
DATE OF SERVICE: 04/21/2018 SUBJECTIVE: The patient was doing well until he eats and then has pain and vomiting. He has had a b owel movement today. He had no fever, chills or other complaints. OBJECTIVE: VITAL SIGNS: Temperature 97.4, pulse 85, respiratory rate 16, blood pressure 152/87. CHEST: Clear. CARDIOVASCULAR: Regular rate and rhythm. ABDOMEN: Nontender. LABORATORY DATA: Shows hemoglobin dropping to 14.1 from 19.2. BMP is normal. ASSESSMENT: Acute on chronic pancreatitis - slow improvement. PLAN: 1. Continue clear liquids. 2. Add Reglan. 3. Continue analgesics but this may be contributing to the problem of persistent nausea, vomiting.
[2018-04-21] MEDS: Metoclopramide HCl 10 MG/2 ML VIAL IVP SCH (20:09)
[2018-04-22] MEDS: Metoclopramide HCl 10 MG/2 ML VIAL IVP SCH ×3 (01:01→13:49)
[2018-04-22] MEDS: HYDROmorphone 10 mg/100 ml CADD IV PRN (01:42)
[2018-04-22] MEDS: Sodium Chloride 0.9% 1,000 ML IV SCH (01:43)
[2018-04-22] MEDS: Ondansetron HCl/PF 4 MG/2 ML Vial IVP PRN (02:08)
[2018-04-22] MEDS: Ketorolac Tromethamine 30 MG/ML VIAL IVP PRN (05:49)
[2018-04-22 08:19] VITALS: TEMP 98.1
[2018-04-22] MEDS: Enoxaparin Sodium 40 MG/0.4 ML SYRINGE SC SCH (08:53)
[2018-04-22] MEDS: Pantoprazole 40 MG VIAL IVP SCH (08:53)
[2018-04-22] MEDS ORDERED: HYDROmorphone 10 mg/100 ml CADD IV PRN (10:00)
[2018-04-22 16:12] VITALS: BP 143/93
--- NOTE | 2018-04-23 01:07 | DIS ---
DATE OF ADMISSION: 04/17/2018 DATE OF DISCHARGE: 04/22/2018 DISCHARGE DIAGNOSES: 1. Right upper quadrant abdominal pain, resolved. 2. Acute on chronic pancreatitis, resolved. 3. Sphincter of Oddi dysfunction, improved. 4. Nausea and vomiting secondarily to #2, resolved. CONSULTATIONS: Dr. Kilgore and Phylicia with GI Service. PERTINENT LABORATORY AND X-RAY FINDINGS: Basic metabolic profile within normal limits. Serum iron l evel 61, TIBC is 244, ferritin 249. LFTs within normal limits. BNP 11.7, albumin 4.6, amylase 27, l ipase 17. CBC showed a white blood cell count ranging between 4.5-10.0, hemoglobin ranged between 14 -19. CT of the abdomen and pelvis dated 04/17/2018, showed no obstructive uropathy. No acute proces s identified. Acute abdominal series dated 04/17/2018, showed no acute process. Portable chest x-ra y dated 04/18/2018, showed no acute cardiopulmonary process. HOSPITAL COURSE: Patient was admitted after presenting with increasing abdominal pain in the context of known chronic pancreatitis and sphincter of Oddi dysfunction. Screening metabolic survey was unr evealing; however, the patient was clinically managed for acute on chronic pancreatitis with n.p.o. s tatus, IV fluids, antiemetics, and Dilaudid VAN DRIVER HELPER pump. The patient remained on this therapy throughou t the hospital course with slow return to clear liquids. The patient was evaluated by the GI service with recommendations for medical management and no specific indication for an acute intervention or surgical procedure. The patient was slow to clinically improve, however, advance to clear liquids, t hen mechanical soft and regular diet prior to discharge. The Dilaudid VAN DRIVER HELPER pump was titrated and even tually discontinued prior to discharge. I have examined the patient at the time of discharge and dis cussed followup instructions, at which patient verbalizes understanding and agreement. The patient o verall clinically stable and ready for discharge on 04/22/2018. DISCHARGE MEDICATION: Zofran 8 mg p.o. q.4 hours p.r.n. FOLLOWUP: The patient may follow up with his primary care provider, Tara Barrera within 7 days of disc harge. The patient will follow up with Dr. Pranav Cavazos with GI Service and to call his office for appointment time and date. CONDITION ON DISCHARGE: Stable. ACTIVITY: Ad barb. DIET: Heart healthy. CODE STATUS: FULL. DISPOSITION: Home on 04/22/2018.
== END 2018-04-22 18:02 | disposition home or self-care (01) | DRG 440 ==
LOC: SCSER 06:24 → ONC 10:58 → OBSVTOIN 10:58
PROVIDERS: ADMIT Internal Medicine Infectious Disease; ATTEND Internal Medicine Infectious Disease
DX: K85.90 Acute pancreatitis without necrosis or infection, unspecified (principal); K86.1 Other chronic pancreatitis; E86.0 Dehydration; D75.1 Secondary polycythemia; E78.5 Hyperlipidemia, unspecified; E66.9 Obesity, unspecified; Z90.49 Acquired absence of other specified parts of digestive tract; Z88.5 Allergy status to narcotic agent; Z88.1 Allergy status to other antibiotic agents; Z68.36 Body mass index [BMI] 36.0-36.9, adult
CPT/HCPCS: 36415; 71045; 74022; 74176; 80048; 80053; 82150; 82553; 82728; 83540; 83550; 83605; 83690; 83880; 84484; 85025; 93005; 94640; 96361; 96374; 96375; 96376; A4216; C9113; J1170; J1200; J1650; J1885; J1940; J2405; J2550; J2765; J7611; J7620

== ENCOUNTER 2019-03-30 07:26 | Outpatient (CLI) | payer OTHER, BC ==
[2019-03-30] MEDS ORDERED: Gadobenate Dimeglumine 529 MG/1 ML (20ML VIAL) ONE (09:41)
--- NOTE | 2019-03-30 10:39 | MRI ---
MRI ABDOMEN WITH AND WITHOUT IV CONTRAST AND MRCP: Date: 03/30/19 HISTORY: Pancreatitis. COMPARISON: MRI of 07/31/17. FINDINGS: Changes of diffuse fatty infiltration of the liver are again seen. The patient is post cholecystectom y. No hepatic mass or abnormal biliary ductal dilatation is seen. The common bile duct measures 7 mm in diameter. The pancreatic duct is normal. The spleen, pancreas, and adrenal glands are normal. No p eripancreatic inflammatory changes or fluid collections are seen. No free fluid or lymphadenopathy is seen in the abdomen. Bilateral renal cysts are seen. There is no evidence of aneurysmal dilatation of the abdominal aorta. The bone marrow signal is normal. The 1.5 cm cystic lesion/fluid collection in the retroperitoneum just below the posterior abdominal w all at the level of the superior pole of the right kidney is stable. IMPRESSION: 1. Fatty liver. 2. Status post cholecystectomy without evidence of abnormal biliary ductal dilatation or choledochol ithiasis. 3. Renal and hepatic cysts. POS: OFF
== END 2019-03-30 07:27 | disposition home or self-care (01) ==
LOC: MRI 07:26
PROVIDERS: ATTEND Internal Medicine Gastroenterology
DX: K85.90 Acute pancreatitis without necrosis or infection, unspecified (principal); R10.11 Right upper quadrant pain; R19.7 Diarrhea, unspecified; K76.0 Fatty (change of) liver, not elsewhere classified; N28.1 Cyst of kidney, acquired; K76.89 Other specified diseases of liver; Z90.49 Acquired absence of other specified parts of digestive tract
CPT/HCPCS: 74183; A9577

== ENCOUNTER 2019-06-11 07:19 | Observation (INO) | payer OTHER, BC ==
[2019-06-11] MEDS ORDERED: Morphine 4 MG/ML VIAL ONE (07:41)
[2019-06-11] MEDS ORDERED: Ondansetron PF 4 MG/2 ML Vial ONE (07:41)
[2019-06-11] MEDS ORDERED: HYDROmorphone 0.5 MG/0.5 ML SYRINGE ONE ×2 (07:49→10:16)
[2019-06-11 07:58] LABS: #Eosinphils 0.1 thou/uL (0.0-0.7); #Lymphocytes 2.5 thou/uL (1.20-3.40); #Monocytes 0.7 thou/uL (0.11-0.59); #Neutrophils 3.7 thou/uL (1.40-6.50); %Basophils 0.7 % (0.0-1.0); %Eosinophils 1.5 % (0.0-10.0); %Lymphocytes 35.7 % (21.0-51.0); %Monocytes 9.6 % (0.0-10.0); %Neutrophils 52.5 % (42.0-75.0); Hemoglobin 17.8 g/dL (14.0-18.0); Mean Corpuscular HGB CONC 34.5 g/dL (32.0-36.0); Mean Corpuscular Hemoglobin 30.1 pg (27.0-31.0); Mean Corpuscular Volume 87.3 fL (78.0-98.0); Platelet Count 166 thou/uL (130-400); RBC Distribution Width 12.6 % (11.5-14.5); Red Blood Cell (RBC) Count 5.92 mill/uL (4.70-6.10)
[2019-06-11 08:20] LABS: ALT (SGPT) 51 U/L (8-55); AST (SGOT) 29 U/L (5-34); Albumin 4.4 g/dL (3.5-5.0); Alkaline Phosphatase 110 U/L (40-150); Anion Gap 9 mmol/L (10-20); BUN (Urea Nitrogen) 13 mg/dL (8.9-20.6); Bilirubin, Total 0.5 mg/dL (0.2-1.2); Calc. Creatinine Clearance 0 mL/min (70-130); Calcium 9.2 mg/dL (7.8-10.44); Carbon Dioxide 28 mmol/L (22-29); Chloride 106 mmol/L (98-107); Estimated GFR-MDRD 82; Globulin 2.7 g/dL (2.4-3.5); Glucose 109 mg/dL (70-105); Lipase 28 U/L (8-78); Magnesium 2.1 mg/dL (1.6-2.6); Potassium 3.7 mmol/L (3.5-5.1); Protein, Total 7.1 g/dL (6.0-8.3); Sodium 139 mmol/L (136-145)
[2019-06-11] MEDS ORDERED: Promethazine HCl 25 MG/ML VIAL ONE (08:37)
--- NOTE | 2019-06-11 08:57 | RAD ---
ACUTE ABDOMINAL SERIES: INDICATION: Right upper quadrant abdominal pain. COMPARISON: Prior exam dated 04/17/2018. FINDINGS: The lungs are clear. No pleural effusion or pneumoperitoneum is evident. There is a stable instrume nted healed left clavicle fracture. Cholecystectomy clips are seen within the right upper quadrant. There is a stent present in the region of the upper abdomen, right of midline possibly within the bi liary system. This may be extending into the pancreatic duct. The surgical clips are seen within th e right upper quadrant consistent with prior cholecystectomy. The bowel gas pattern is unobstructed. No acute osseous abnormality is evident. IMPRESSION: 1. Biliary stent as above. 2. Cholecystectomy. 3. No definite acute cardiopulmonary abnormality demonstrated. POS: OFF
[2019-06-11] MEDS ORDERED: Acetaminophen 325 MG TAB PO PRN (12:05)
[2019-06-11] MEDS ORDERED: Acetaminophen 650 MG Suppository PR PRN (12:05)
[2019-06-11] MEDS ORDERED: Sodium Chloride 0.9% 1,000 ML IV SCH (12:15)
[2019-06-11] MEDS ORDERED: hydrALAZINE 20 MG/ML VIAL SLOW IVP PRN (12:51)
[2019-06-11] MEDS ORDERED: Ketorolac Tromethamine 30 MG/ML VIAL IVP PRN (12:52)
[2019-06-11] MEDS ORDERED: Ondansetron PF 4 MG/2 ML Vial IVP PRN (12:57)
[2019-06-11 12:59] VITALS: BMI 35.9
--- NOTE | 2019-06-11 13:27 | HP ---
PRIMARY CARE PROVIDER: Tara Barrera MD CHIEF COMPLAINT: Abdominal pain. HISTORY OF PRESENT ILLNESS: Mr. Oliveros is a pleasant 48-year-old gentleman, who was seen at [facility] on June 11, 2019. He reports that he has a history of chronic pancreatitis and sphincter of Oddi dysfunction. He underwent placement of 2 pancreatic duct stents on April 07, 2019, in [place]. At around 7 p.m. last night, he had sudden onset of right upper quadrant pain. He describes it as dull, occasionally sharp, currently 3/10. He reports vomiting. He also reports 4 to 5 loose stools overnight, which have resolved. He cannot recall any aggravating or relieving factors. He denies any chest pain. He reports that in the past when he had morphine, it worsened his sphincter of Oddi dysfunction. REVIEW OF SYSTEMS: All systems were reviewed and found to be negative except for the pertinent positives mentioned above. PAST MEDICAL HISTORY: Chronic pancreatitis and sphincter of Oddi dysfunction. PAST SURGICAL HISTORY: Pancreatic duct stent placement, cholecystectomy, appendectomy. SOCIAL HISTORY: No history of tobacco use, alcohol use, or recreational drug use. FAMILY HISTORY: No family history of premature coronary artery disease. ALLERGIES: DEMEROL, ERYTHROMYCIN, AND TETRACYCLINE. CURRENT MEDICATIONS: None. PHYSICAL EXAMINATION: GENERAL: On examination, Mr. Oliveros is awake and alert, not in acute distress. VITAL SIGNS: Blood pressure is 152/112, pulse 77, respiratory rate 18, and oxygen saturation 97% on room air. He is afebrile. EYES: No scleral icterus. No conjunctival pallor. ENT: Moist mucosal membranes. No oropharyngeal erythema or exudates. NECK: Supple, nontender. Trachea is midline. RESPIRATORY: Accessory muscles of breathing are not active. Chest wall movements are symmetric bilaterally. Lungs are clear to auscultation without wheeze, rhonchi, or crepitations. CARDIOVASCULAR: S1 and S2 are heard, regular. Peripheral pulses palpable. No carotid bruit. No pericardial rub. ABDOMEN: Soft, mild right upper quadrant tenderness. No guarding or rigidity. Bowel sounds are heard. NEUROLOGIC: Cranial nerves 2 through 12 are intact. MUSCULOSKELETAL: Power is 5/5 in all 4 extremities. SKIN: No rashes or subcutaneous nodules. LYMPHATIC: No cervical lymphadenopathy. PSYCHIATRIC: Normal mood. Normal affect. The patient is oriented to person, place, and time. LABORATORY DATA: Mr. Oliveros's labs and investigations were reviewed. He had abdominal x-rays, which showed biliary stent. He has an unremarkable CBC and an unremarkable comprehensive metabolic profile. Lipase and lactic acid levels are normal. ASSESSMENT AND PLAN: Mr. Oliveros is a pleasant 48-year-old gentleman, who was seen at [facility] on June 11, 2019. His problem list includes: 1. Abdominal pain: Etiology unclear, could be secondary to chronic pancreatitis or sphincter of Oddi dysfunction. He will be admitted to the hospital for further management. In the past, he has required Dilaudid SOUND RECORDIST for management of pain. We will consult Pain Management Service for the same. We will also provide intravenous hydration. We will start him on clear fluid diet. 2. Chronic pancreatitis: He has had normal lipase level in the setting of chronic pancreatitis in the past. For now, this will be treated as chronic pancreatitis. Many thanks for allowing me to participate in your patient's care. Please feel free to contact me with any questions or concerns. LEVEL OF RISK: Moderate. LEVEL OF COMPLEXITY: Moderate. Job ID: [id number]
[2019-06-11] MEDS ORDERED: PROPOFOL 200 MG/20 ML VIAL ONE (13:38)
--- NOTE | 2019-06-11 18:16 | CON ---
DATE OF CONSULTATION: HISTORY OF PRESENT ILLNESS: Mr. Oliveros is a 48-year-old gentleman with a long history of idiopathic pancreatitis. He has been treated in the past cholecystectomy and previous sphincterotomy and has had pancreatic duct stenting in the past. More recently, he had worsening pain and see Dr. Cortés, who performed the EUS and ERCP with beading of the pancreatic duct, this was dilated and 2 stents were placed. Two 7 cm, 7-Urdu stents were placed in the pancreatic duct. He has done well until last night when acutely began to have some discomfort and pain. He contacted me liquid diet with persistent symptoms, he came to the hospital this morning. Plain films show that there is one stent in the region of the head of the pancreas, not the two that were noted to be placed previously. He had plain films, although he has quite a bit of constipation. Recently, he had undergone an EGD in 03/31/2019, at which time there were no other abnormalities in the stomach or duodenum to indicate a cause for pain. I have talked with Dr. Derik Cortés, his biliary endoscopist in [place], who advised to go ahead and remove the remaining stent as he may have some stent occlusion and to see if that makes him feel better. If not, we transferred him to [place] next week for replacement of stents. Talking with Mr. Oliveros, he notes the plan had been for him to go back to see Dr. Cortés in September, and placed 3 stents into this area instead of the two that were there most recently. PAST MEDICAL HISTORY: Chronic idiopathic pancreatitis. PAST SURGICAL HISTORY: Pancreatic duct stent placement, cholecystectomy, appendectomy, previous ERCPs, endoscopies, and EUS. SOCIAL HISTORY: No drugs, alcohol, or tobacco. FAMILY HISTORY: No history of pancreatic disease. ALLERGIES: DEMEROL, ERYTHROMYCIN, AND TETRACYCLINE. MEDICATIONS: At home none except for occasional Zofran. He had present medications here in the hospital: 1. Tylenol. 2. Lovenox. 3. . 4. Toradol. 5. Zofran. 6. Normal saline 100 an hour. REVIEW OF SYSTEMS: Negative for dysphagia, odynophagia, melena, hematochezia, or hematemesis. Negative for shortness of breath, diaphoresis, or nausea. Negative for exertional chest pain or dyspnea. Negative for melena, hematochezia, or hematemesis. PHYSICAL EXAMINATION: LUNGS: Clear. HEART: Regular rate and rhythm without clicks or murmurs. ABDOMEN: Soft and nontender. Slightly protuberant. LABORATORY DATA: White count 7, hemoglobin 17.8, baseline is about 14 to 16 typically, platelet count 166. BUN is 13, creatinine is 0.97. Electrolytes are otherwise normal. Liver function tests normal with AST and ALT of 29 and 51 and bilirubin of 0.5, alkaline phosphatase 110, and lipase was 28. Plain films reviewed. ASSESSMENT: Worsening abdominal pain consistent with previous pancreatitis. His lipase is normal, which is typical for him. I have talked with biliary endoscopist in [place], who recommend to go ahead and remove the remaining pancreatic duct stent. If his pain persists, consider transfer to [place] next week for replacement of pancreatic duct stents. Job ID: [id number]
[2019-06-11 18:21] VITALS: BP 151/100; TEMP 97.9
--- NOTE | 2019-06-11 22:35 | OP ---
DATE OF PROCEDURE: 06/11/2019 PROCEDURE PERFORMED: Esophagogastroduodenoscopy with removal of pancreatic duct stent. PREPROCEDURE DIAGNOSES: 1. History of chronic idiopathic pancreatitis with previous pancreatic duct stent. 2. Worsening pain. 3. Talked to the patient's therapeutic endoscopist in [place] who recommended to go ahead and removing the remaining stent that is present in the duct to help with his discomfort. If not, plan on having stents replaced next week possibly in [place]. ANESTHESIA: TIVA. PROCEDURE IN DETAIL: The patient was informed of risks, benefits, and possible complications of endoscopy including perforation, reaction to medication, aspiration, informed consent was obtained. The patient was brought to the endoscopy suite, where he was sedated in fashion. Once he was comfortable, a bite-block was placed inside his orifice. The endoscope was advanced through the esophagus, stomach, and second and third portions of the duodenum . The ampulla was brought into view where one stent was noted to be emanating from the ampulla. This was grasped with a snare and then removed easily with no bleeding on second look. The scope was then removed. The patient tolerated the procedure well with no complications. Job ID: [id number]
--- NOTE | 2019-06-12 03:01 | DIS ---
DATE OF ADMISSION: 06/11/2019 DATE OF DISCHARGE: 06/11/2019 PRIMARY CARE PROVIDER: Dr. Tara Barrera. DISCHARGE DIAGNOSIS: Abdominal pain. CONSULTATIONS DURING THIS HOSPITALIZATION: Gastroenterology, Dr. Cavazos. HOSPITAL COURSE: Mr. Oliveros is a pleasant 48-year-old gentleman, who was admitted to [facility] on June 11, 2019, for abdominal pain and chronic pancreatitis. Please refer to my history and physical note dated June 11, 2019, for further details. Following admission, Mr. Oliveros was seen by Gastroenterology Service. He underwent EGD with extraction of one of the stents. His pain resolved. He is tolerating clear fluid diet. He has been cleared for discharge by Gastroenterology Service. No change was made to his pre-admission home medications. Many thanks for allowing me to participate in your patient's care. Please feel free to contact me with any questions or concerns. FOLLOWUP APPOINTMENTS: The patient is advised to follow up with his rolloff driver and primary care provider. DISCHARGE DESTINATION: Home. Job ID: [id number]
[2019-06-12] MEDS ORDERED: Enoxaparin Sodium 40 MG/0.4 ML SYRINGE SC SCH (09:00)
== END 2019-06-11 18:15 | disposition home or self-care (01) ==
LOC: ERS 07:19 → ERHOLD 10:57 → T4-A 12:54
PROVIDERS: ADMIT Internal Medicine; ATTEND Internal Medicine
PROC: 0DC68ZZ Extirpation of Matter from Stomach, Via Natural or Artificial Opening Endoscopic (ICD-10-PCS; principal; 2019-06-11)
DX: K86.1 Other chronic pancreatitis (principal); Z88.1 Allergy status to other antibiotic agents; Z88.5 Allergy status to narcotic agent; Z88.8 Allergy status to other drugs, medicaments and biological substances
CPT/HCPCS: 74022; 80053; 83605; 83690; 83735; 85025; 96361; 96374; 96375; 96376; G0378; J1170; J1885; J2270; J2405; J2550; J2704

== ENCOUNTER 2019-10-31 18:19 | Inpatient (IN) | payer OTHER, BC ==
[2019-10-31 19:07] LABS: #Basophils 0.1 thou/uL (0.0-0.2); #Eosinphils 0.1 thou/uL (0.0-0.7); #Lymphocytes 2.8 thou/uL (1.20-3.40); #Monocytes 0.7 thou/uL (0.11-0.59); #Neutrophils 4.4 thou/uL (1.40-6.50); %Basophils 0.8 % (0.0-1.0); %Eosinophils 1.3 % (0.0-10.0); %Lymphocytes 34.8 % (21.0-51.0); %Monocytes 8.3 % (0.0-10.0); %Neutrophils 54.7 % (42.0-75.0); Hemoglobin 17.4 g/dL (14.0-18.0); Mean Corpuscular HGB CONC 33.8 g/dL (32.0-36.0); Mean Corpuscular Hemoglobin 30.1 pg (27.0-31.0); Mean Corpuscular Volume 88.8 fL (78.0-98.0); Platelet Count 180 thou/uL (130-400); RBC Distribution Width 12.7 % (11.5-14.5); Red Blood Cell (RBC) Count 5.79 mill/uL (4.70-6.10)
[2019-10-31 19:32] LABS: ALT (SGPT) 46 U/L (8-55); AST (SGOT) 31 U/L (5-34); Albumin 4.4 g/dL (3.5-5.0); Alkaline Phosphatase 112 U/L (40-110); Anion Gap 11 mmol/L (10-20); BUN (Urea Nitrogen) 8 mg/dL (8.9-20.6); Calc. Creatinine Clearance 0 mL/min (70-130); Calcium 9.2 mg/dL (7.8-10.44); Carbon Dioxide 27 mmol/L (22-29); Chloride 104 mmol/L (98-107); Estimated GFR-MDRD 78; Globulin 2.8 g/dL (2.4-3.5); Glucose 102 mg/dL (70-105); Lipase 32 U/L (8-78); Potassium 3.6 mmol/L (3.5-5.1); Protein, Total 7.2 g/dL (6.0-8.3); Sodium 138 mmol/L (136-145)
[2019-10-31] MEDS ORDERED: Morphine 4 MG/ML VIAL ONE (20:19)
[2019-10-31] MEDS ORDERED: Ondansetron PF 4 MG/2 ML Vial ONE (20:19)
--- NOTE | 2019-10-31 21:14 | RAD ---
SINGLE VIEW OF THE ABDOMEN: Comparison: None. History: Right upper quadrant abdominal pain. Pancreatic stent. FINDINGS: Anterior view of the abdomen shows a nonspecific, nonobstructive bowel gas pattern. There appear to b e two stents in the right upper quadrant of the abdomen. Cholecystectomy clips are seen. IMPRESSION: Nonobstructed bowel gas pattern. POS: C
[2019-10-31] MEDS ORDERED: diphenhydrAMINE 50 MG/ML VIAL IM/IV PRN (22:39)
[2019-10-31] MEDS ORDERED: Naloxone HCl 0.4 mg/ml Vial IV PRN (22:39)
[2019-10-31] MEDS ORDERED: diphenhydrAMINE 25 MG CAP PO PRN (22:39)
[2019-10-31] MEDS ORDERED: Ondansetron PF 4 MG/2 ML Vial IVP PRN (22:39)
[2019-10-31] MEDS ORDERED: Promethazine HCl 25 MG/ML VIAL IM PRN (22:39)
[2019-10-31] MEDS ORDERED: Zolpidem Tartrate 5 MG TAB PO PRN (22:39)
[2019-10-31 22:49] VITALS: BMI 36.3
[2019-10-31] MEDS: HYDROmorphone 10 mg/100 ml CADD IV PRN (23:24)
[2019-10-31] MEDS: Sodium Chloride 0.9% 1,000 ML IV SCH (23:26)
[2019-11-01] MEDS: Sodium Chloride 0.9% 1,000 ML IV SCH ×3 (05:43→20:59)
[2019-11-01] MEDS ORDERED: hydrALAZINE 20 MG/ML VIAL SLOW IVP PRN (10:11)
[2019-11-01] MEDS ORDERED: diphenhydrAMINE 25 MG CAP PO PRN (10:11)
[2019-11-01] MEDS ORDERED: Sodium Chloride 0.9% 1,000 ML IV SCH ×3 (10:15→13:45)
--- NOTE | 2019-11-01 10:36 | HP ---
PRIMARY CARE PHYSICIAN: Tara Barrera MD. CHIEF COMPLAINT: Abdominal pain. HISTORY OF PRESENT ILLNESS: Mr. Oliveros is a very pleasant 48-year-old gentleman who has a history of sphincter of Oddi dysfunction. He says he has had at least 12 pancreatic stents placed in the pancreas. He says that typically he has the stents placed every 6 months and they are supposed to last that time, but generally he starts to have abdominal pain before the life of the stent is over. He says that he started having pain this Friday. He says it was like a dull pain on the right side of the abdomen and he has these intermittent sharp pains that happen as well. The pain is much worse if he tries to eat. The pain got progressively worse until it got to the point of being 8/10. He says the pain radiates to the back and he also has noted a decrease in his appetite. He does state that he has been having some diarrhea off and on but this has been a constant problem, but if he eats something rich, then the diarrhea is definitely going to be worse. There is no change in the color of the stool. No blood in the stool. He has had some nausea, but no vomiting. No fevers, no chills, and no hemoptysis. The patient believes that this is the same pain that he has had in the past with regard to the stents. Otherwise, the patient has no other complaints. REVIEW OF SYSTEMS: All systems are reviewed and are negative except for that mentioned in the history of present illness. 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 PAST SURGICAL HISTORY: He has had the pancreatic stents x12, cholecystectomy, appendectomy. He had to have surgery to repair his clavicle as well as bilateral shoulder surgeries and bilateral knee surgery for meniscal tears. ALLERGIES: TO DEMEROL, WHICH HE SAYS CAUSES ANAPHYLAXIS. HE IS ALSO ALLERGIC TO ERYTHROMYCIN AND TETRACYCLINE, WHICH CAUSES A RASH. SOCIAL HISTORY: He is , has two sons. He is a nonsmoker and nondrinker. 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 FAMILY HISTORY: Significant for his mother had sphincter of Oddi disorder as well. CURRENT MEDICATIONS: Include Zofran just as needed. PHYSICAL EXAMINATION: GENERAL: He is alert and oriented. He appears to be in no acute distress. He is well developed, well nourished, very pleasant gentleman. VITAL SIGNS: Blood pressure was 136/83, heart rate 77, respiratory rate of 20, temperature is 98.3, and O2 saturation is 95% on room air. HEENT: Pupils are equal, round, and reactive. Extraocular muscles are intact. Sclerae anicteric. Throat, no erythema, no exudates. NECK: No adenopathy, no bruits. LUNGS: Clear to auscultation. There is no wheezing, no rales, no rhonchi. CARDIOVASCULAR: He has a normal S1, S2. There is no S3 or S4. No murmurs, clicks, or rubs. ABDOMEN: Obese and soft. He did have some mild right upper quadrant tenderness. The liver was approximately 1 cm below the right costal margin. There is no positive Yañez sign. There is no rebound tenderness, no guarding. EXTREMITIES: There is no clubbing or cyanosis. No edema. No joint effusions. NEUROLOGIC: Grossly nonfocal. SKIN AND INTEGUMENT: No skin changes, no rash. LABORATORY DATA: White blood cell count is 8, hemoglobin 17.4, hematocrit is 51.4, and platelet count was 180. Sodium 138, potassium 3.8, chloride is 104, CO2 is 27, BUN of 8, creatinine 1.01, glucose is 102. His transaminases and bilirubin were normal. Alkaline phosphatase was 112. Lipase was 32. He had an x-ray of the abdomen in which it appears that he has quite a bit of stool in the colon, but no evidence of an obstructive pattern. ASSESSMENT: This is a 48-year-old gentleman who has a history of sphincter of Oddi disorder who has recurrent abdominal pain. He states it is similar to his previous episodes. He will therefore be placed in observation, place him on IV fluids as well as IV antiemetics and analgesics and consult Gastroenterology for further recommendations. Job ID: [id number]
[2019-11-01] MEDS: Ondansetron PF 4 MG/2 ML Vial IVP PRN ×2 (13:03→18:59)
--- NOTE | 2019-11-01 18:14 | CON ---
DATE OF CONSULTATION: 11/01/2019 REASON FOR CONSULTATION: Abdominal pain. HISTORY OF PRESENT ILLNESS: Mr. Oliveros is a pleasant 48-year-old gentleman, well known to me from previous admissions. He has had a long history of chronic pancreatitis, idiopathic etiology. He has been treated intermittently with Dr. Odell with pancreatic stents. He has had previous sphincterotomies, both the pancreas and the biliary tree. He has had a previous cholecystectomy. Starting on , he began to have typical pain of pancreatitis, epigastric, associated with nausea and vomiting. He went to a liquid diet, but could not get to feel better. Ultimately, he came to the emergency room as he felt he was getting dehydrated. He does have a history of this in the past, and the pain is very consistent. His labs were notable for a white count of 8, hemoglobin 17, platelet count of 180. His sodium was 138, potassium 3.6, BUN and creatinine were 8 and 1.01. Liver function tests were normal; alkaline phosphatase was 112. AST and ALT 31 and 46, bilirubin 1. Lipase was 32, baseline usually runs around 11 to 10. Plain films obtained showing stents in the pancreatic duct. He has been afebrile. No melena, hematochezia, or hematemesis. PAST MEDICAL HISTORY: Chronic idiopathic pancreatitis. PAST SURGICAL HISTORY: Pancreatic duct stent placements intermittently, cholecystectomy, appendectomy, previous ERCPs, and endoscopies with EUS with Dr. Melendez and Dr. Odell. SOCIAL HISTORY: No drugs, alcohol, or tobacco. FAMILY HISTORY: No history of pancreatic disease. ALLERGIES: 1. DEMEROL. 2. ERYTHROMYCIN. 3. TETRACYCLINE. MEDICATIONS: Medications at home: 1. Zofran p.r.n. 2. Omeprazole 40 mg daily. 3. Fluticasone spray. 4. Zyrtec. Present medications: 1. Benadryl. 2. Apresoline. 3. Dilaudid pump. 4. Naloxone p.r.n. 5. Zofran p.r.n. 6. Protonix 40 IV Q.12. 7. Phenergan p.r.n. 8. Normal saline at 125 an hour. ASSESSMENT: 1. Idiopathic pancreatitis with symptoms consistent with flare. He is mildly dehydrated. I have talked with Dr. Odell in [place], and he does not want to remove stents at this time as the stents that are there were just placed in September. He has had endoscopic retrograde cholangiopancreatography and endoscopic ultrasound imaging consistent with chronic pancreatitis and bleeding of the other pancreatic duct. There has been no history of masses or lesions. We are not going to re-image his pancreas right now. 2. Mild dehydration. 3. No evidence of sepsis or infection. 4. Last stents removed in June. 5. Previous testings for celiac and autoimmune hepatitis were negative recently. PLAN: IV fluids. Pain management. N.P.O. status. Observation. If the patient does not have improvement, we will re-discuss with Dr. Odell in a couple of days. I have explained to the patient the plan at this time. We will proceed. Job ID: [id number]
[2019-11-01] MEDS: HYDROmorphone 10 mg/100 ml CADD IV PRN (20:36)
[2019-11-02] MEDS: Sodium Chloride 0.9% 1,000 ML IV SCH ×4 (03:25→23:58)
[2019-11-02 06:17] LABS: #Eosinphils 0.1 thou/uL (0.0-0.7); #Monocytes 0.7 thou/uL (0.11-0.59); #Neutrophils 5.6 thou/uL (1.40-6.50); %Basophils 0.1 % (0.0-1.0); %Eosinophils 1.4 % (0.0-10.0); %Lymphocytes 23.4 % (21.0-51.0); %Monocytes 8.4 % (0.0-10.0); %Neutrophils 66.7 % (42.0-75.0); Hemoglobin 15.5 g/dL (14.0-18.0); Mean Corpuscular HGB CONC 34.1 g/dL (32.0-36.0); Mean Corpuscular Hemoglobin 30.5 pg (27.0-31.0); Mean Corpuscular Volume 89.6 fL (78.0-98.0); Platelet Count 147 thou/uL (130-400); RBC Distribution Width 12.5 % (11.5-14.5); Red Blood Cell (RBC) Count 5.09 mill/uL (4.70-6.10); White Blood Cell (WBC) Count 8.3 thou/uL (4.8-10.8)
[2019-11-02 06:41] LABS: Anion Gap 10 mmol/L (10-20); BUN (Urea Nitrogen) 7 mg/dL (8.9-20.6); Calc. Creatinine Clearance 188 mL/min (70-130); Calcium 8.4 mg/dL (7.8-10.44); Carbon Dioxide 25 mmol/L (22-29); Chloride 105 mmol/L (98-107); Estimated GFR-MDRD Greater than 90; Glucose 73 mg/dL (70-105); Lipase 19 U/L (8-78); Potassium 3.9 mmol/L (3.5-5.1); Sodium 136 mmol/L (136-145)
[2019-11-02] MEDS: Pantoprazole 40 MG VIAL IVP SCH (08:02)
[2019-11-02] MEDS: Ondansetron PF 4 MG/2 ML Vial IVP PRN ×2 (10:23→16:29)
--- NOTE | 2019-11-02 17:27 | PDOC.HOSPP ---
- Subjective Encounter Date: 11/02/19 Encounter Time: 17:25 Subjective: Mr. Oliveros was seen today in follow-up of Sphincter of Oddi dysfunction. He notes more abdominal cramping, as well as nausea and some vomiting. - Objective Vital Signs & Weight: Vital Signs (12 hours) Temp Pulse Resp BP Pulse Ox 11/02/19 15:55 99 F 83 18 136/87 95 11/02/19 11:32 98.4 F 81 12 139/91 H 94 L 11/02/19 08:00 94 L 11/02/19 07:22 98 F 88 17 106/63 94 L Weight Weight 275 lb 14.4 oz I&O: 11/01/19 11/02/19 11/03/19 06:59 06:59 06:59 Intake Total 3825 Balance 3825 Result Diagrams: 11/02/19 05:33 11/02/19 05:33 Hospitalist ROS - Medication Medications: Active Medications Generic Name Dose Route Start Last Admin Trade Name Freq PRN Reason Stop Dose Admin Hydromorphone HCl 0 mg 10/31/19 22:39 11/01/19 20:36 Dilaudid Cadd IV 10 mg INF PRN Administration Pain Sodium Chloride 1,000 mls @ 150 mls/hr 11/01/19 13:45 11/02/19 16:33 Normal Saline 0.9% IV 1,000 mls .Q6H40M MYRNA Administration Ondansetron HCl 4 mg 11/01/19 10:11 11/02/19 16:29 Zofran IVP 4 mg Q6H PRN Administration Nausea/Vomiting Pantoprazole Sodium 40 mg 11/02/19 09:00 11/02/19 08:02 Protonix IVP 40 mg DAILY MYRNA Administration - Exam Eye: PERRL Heart: RRR, no murmur, no gallops, no rubs, normal peripheral pulses Respiratory: CTAB, no wheezes, no rales, no ronchi, normal chest expansion Gastrointestinal: soft, non-tender, non-distended, normal bowel sounds, no palpable masses, no hepatomegaly Extremities: no cyanosis Hosp A/P (1) Nausea and vomiting Code(s): R11.2 - NAUSEA WITH VOMITING, UNSPECIFIED Status: Acute (2) RUQ abdominal pain Code(s): R10.11 - RIGHT UPPER QUADRANT PAIN Status: Acute (3) Sphincter of Oddi dysfunction Code(s): K83.4 - SPASM OF SPHINCTER OF ODDI Status: Acute - Plan * Nausea and vomiting- continue with conservative treatment * GI input noted * Continue IV fluids, NPO status, and Analgesic
[2019-11-02] MEDS: Promethazine HCl 12.5 MG in Sodium Chloride 0.9% 50 ML IVPB PRN (18:47)
[2019-11-02] MEDS: HYDROmorphone 10 mg/100 ml CADD IV PRN (18:48)
[2019-11-02] MEDS ORDERED: Dextrose 5 % And 0.9 % NaCl 1,000 ML IV SCH (19:30)
[2019-11-02] MEDS: Enoxaparin Sodium 30 MG/0.3 ML SYRINGE SC SCH (20:04)
--- NOTE | 2019-11-02 20:16 | PRG ---
DATE OF SERVICE: 11/02/2019 SUBJECTIVE: Mr. Oliveros states he felt quite a bit better yesterday after the fluid bolus, but today, he is more nauseated. The pain is controlled, but really feels very nauseated. He has no bowel movement. OBJECTIVE: VITAL SIGNS: Temperature is 99, pulse 83, Blood pressure is 136/87. LUNGS: Clear. HEART: Regular rhythm. ABDOMEN: Soft and nontender. LABORATORY DATA: White count 8.3; hemoglobin 15.5, down from 17.4 on admission; platelet count 147. Electrolytes are normal. Lipase is going down to 19. ASSESSMENT: 1. Gixur-sc-natibli pancreatitis, still requiring pain medicines and IV fluids. He has nausea and does not want to eat. He is having active bowel sounds. 2. He asked if he could have another fluid bolus as that seemed to make things better and felt like he was catching up last night. PLAN: 1. Fluid bolus 1 L normal saline. 2. Recheck labs in the morning. 3. CT scan of the abdomen and pelvis in the morning if no better pancreas. 4. Start Lovenox prophylaxis. Job ID: [id number]
[2019-11-03] MEDS: Promethazine HCl 12.5 MG in Sodium Chloride 0.9% 50 ML IVPB PRN ×4 (00:17→20:48)
[2019-11-03] MEDS: Sodium Chloride 0.9% 1,000 ML IV SCH ×3 (05:31→18:12)
[2019-11-03] MEDS: Ondansetron PF 4 MG/2 ML Vial IVP PRN ×3 (07:17→18:12)
[2019-11-03] MEDS: Pantoprazole 40 MG VIAL IVP SCH (07:21)
--- NOTE | 2019-11-03 09:00 | CT ---
CT OF THE ABDOMEN AND PELVIS WITH IV CONTRAST INDICATION: History of acute on chronic pancreatitis with intraparenchymal pancreatic duct stent with in the pancreas. Concern for blockage of the stent COMPARISON: CT the abdomen and pelvis without contrast dated April 17, 2018 and an MR the abdomen with and without contrast dated March 30, 2019 FINDINGS: ABDOMEN: Lung bases: There are bibasilar calcified granuloma Liver: No focal lesion. Gallbladder: Surgically absent Pancreas: There is a stent projecting from the second portion of the duodenum into the ampulla of Vat er and projecting into the proximal aspect of the main pancreatic duct. No intrahepatic parenchymal duct dilatation is evident. No extrahepatic ductal dilatation is evident involving the common bile du ct, embolic measures approximately 5.6 mm. No peripancreatic inflammatory stranding is evident. There is diffuse symmetric enhancement of the pancreas. No focal pancreatic lesion is evident. No divya inable fluid collection is evident. Adrenal glands: Normal. Spleen: There are calcified granulomas involving the spleen Kidneys and ureters: There is a stable right superior pole renal cyst. No hydronephrosis is evident. Tiny subcentimeter cyst is seen involving the inferior pole of the right kidney. Vasculature: Normal. Lymph nodes:No lymphadenopathy. Free fluid in abdomen:No free fluid is evident. PELVIS: Small and large bowel: There are scattered diverticula involving the colon without evidence of active diverticulitis. Small bowel is normal in caliber Appendix:Surgically absent Bladder: Normal. Rectal and perirectal soft tissues:Normal. Reproductive structures: Normal. Free fluid in pelvis: No free fluid is evident. Lymphadenopathy pelvis: No lymphadenopathy is evident. Osseous structures: No acute osseous abnormality. No destructive osteolytic or osteoblastic lesion i s identified. There is scattered degenerative and osteoarthritic changes. Soft tissues:Normal. IMPRESSION: 1. New pancreatic duct stent projecting into the second portion the duodenum. There is no evidence of upstream dilatation to suggest stent occlusion. There is no CT evidence to suggest presence of active pancreatitis. 2. Stable right renal cysts. 3. Colonic diverticulosis. 4. Findings of prior appendectomy and cholecystectomy
[2019-11-03] MEDS ORDERED: Iopamidol-370 76% 500 ML 1 ML ONE (14:25)
--- NOTE | 2019-11-03 15:04 | PRG ---
DATE OF SERVICE: 11/03/2019 SUBJECTIVE: Mr. Oliveros had a CAT scan this morning, which showed two stents in the pancreatic duct. No inflammation. No edema. No ductal dilatation. They appear to be in proper position. He states he is still nauseated and threw up some of the contrast for the CT. His pain is controlled, but he has continued PRESENTATION TEAM MEMBER. OBJECTIVE: VITAL SIGNS: Temperature is 98, pulse 81, blood pressure 153/90. LUNGS: Clear. HEART: Regular rhythm without clicks or murmurs. ABDOMEN: Slightly protuberant. There is no rebound. There is no guarding. LABORATORY DATA: White count 8.3 yesterday, hematuria was [address] scan report, films reviewed by myself. ASSESSMENT: Acute on chronic pancreatitis. Lipase has trended down yesterday, although symptoms are not improving. He has two stents in the pancreatic duct that were placed in late September. I have talked to his customer manager in [place]. He did not want to remove the stents at present. He is not worsening, but he is not improving. He has had a recent esophagogastroduodenoscopy in last June to rule out causes of epigastric pain and vomiting, which was essentially normal and he has had a normal screening colonoscopy at that time as well. He does have a little bit of stool in the colon, but is not overwhelmingly constipated. RECOMMENDATIONS: Continue conservative management. Wean narcotics as possible. As his pain improves, we will start him on liquids. If he is not improving tomorrow, we will talk again with Dr. Odell about possibly removing his biliary duct stents as this seems to have helped him in the past. Job ID: [id number]
--- NOTE | 2019-11-03 17:10 | PDOC.HOSPP ---
- Subjective Encounter Date: 11/03/19 Encounter Time: 17:09 Subjective: Mr. Oliveros was seen today in follow-up of Sphincter of Oddi dysfunction. He continues to have abdominal pain and nausea. - Objective Vital Signs & Weight: Vital Signs (12 hours) Temp Pulse Resp BP Pulse Ox 11/03/19 08:28 98.8 F 81 20 153/90 H 97 Weight Weight 275 lb 14.4 oz I&O: 11/02/19 11/03/19 11/04/19 06:59 06:59 06:59 Intake Total 3825 Balance 3825 Result Diagrams: 11/02/19 05:33 11/02/19 05:33 Hospitalist ROS - Medication Medications: Active Medications Generic Name Dose Route Start Last Admin Trade Name Freq PRN Reason Stop Dose Admin Enoxaparin Sodium 30 mg 11/02/19 21:00 11/02/19 20:04 Lovenox SC 30 mg 2100 MYRNA Administration Hydromorphone HCl 0 mg 10/31/19 22:39 11/02/19 18:48 Dilaudid Cadd IV 10 mg INF PRN Administration Pain Sodium Chloride 1,000 mls @ 150 mls/hr 11/01/19 13:45 11/03/19 12:18 Normal Saline 0.9% IV 1,000 mls .Q6H40M MYRNA Administration Promethazine HCl 12.5 mg/ 50.5 mls @ 202 mls/hr 11/02/19 17:04 11/03/19 15:12 Sodium Chloride IVPB 50.5 mls Q6H PRN Administration Nausea/Vomiting Ondansetron HCl 4 mg 11/01/19 10:11 11/03/19 12:18 Zofran IVP 4 mg Q6H PRN Administration Nausea/Vomiting Pantoprazole Sodium 40 mg 11/02/19 09:00 11/03/19 07:21 Protonix IVP 40 mg DAILY MYRNA Administration - Exam Eye: PERRL Heart: RRR, no murmur, no gallops, no rubs, normal peripheral pulses Respiratory: CTAB, no wheezes, no rales, no ronchi, normal chest expansion Gastrointestinal: soft, normal bowel sounds (+ mild diffuse tenderness no rebound or guarding) Extremities: no cyanosis, no edema Hosp A/P (1) Nausea and vomiting Code(s): R11.2 - NAUSEA WITH VOMITING, UNSPECIFIED Status: Acute (2) RUQ abdominal pain Code(s): R10.11 - RIGHT UPPER QUADRANT PAIN Status: Acute (3) Sphincter of Oddi dysfunction Code(s): K83.4 - SPASM OF SPHINCTER OF ODDI Status: Acute - Plan * Sphincter of Oddi Dysfunction with Pancreatitis- continue IV fluids, and IV analgesics * Continue as per Retail Client Solutions Consultant
[2019-11-03] MEDS: Enoxaparin Sodium 30 MG/0.3 ML SYRINGE SC SCH (20:48)
[2019-11-04] MEDS: Sodium Chloride 0.9% 1,000 ML IV SCH ×4 (00:15→21:35)
[2019-11-04] MEDS: HYDROmorphone 10 mg/100 ml CADD IV PRN (01:09)
[2019-11-04] MEDS: Ondansetron PF 4 MG/2 ML Vial IVP PRN (04:10)
[2019-11-04] MEDS: Promethazine HCl 12.5 MG in Sodium Chloride 0.9% 50 ML IVPB PRN (08:45)
[2019-11-04] MEDS ORDERED: PROPOFOL 200 MG/20 ML VIAL ONE (09:50)
[2019-11-04] MEDS ORDERED: Ketorolac Tromethamine 30 MG/ML VIAL IVP PRN (10:52)
[2019-11-04] MEDS ORDERED: Promethazine HCl 25 MG/ML VIAL SLOW IVP PRN (10:52)
[2019-11-04] MEDS ORDERED: Ondansetron HCl/PF 4 MG/2 ML Vial IVP PRN (10:52)
[2019-11-04] MEDS ORDERED: Promethazine HCl 25 MG/ML VIAL IM PRN (10:52)
--- NOTE | 2019-11-04 11:43 | OP ---
DATE OF PROCEDURE: 11/04/2019 PROCEDURE PERFORMED: Esophagogastroduodenoscopy with removal of pancreatic duct stents. ANESTHESIA: TIVA. PREPROCEDURE DIAGNOSES: 1. History of chronic pancreatitis. 2. Admission with iydnd-yx-qgdainm pain consistent with his chronic pancreatitis pain, normal CT and normal lipase. 3. Failure to respond to conservative therapy. After discussion with the patient and his biliary endoscopist in [place], we decided to remove the stent and see if it relieves his pain as it has in the past, but also placing stents has relieved his pain. The patient understands this may not improve his symptoms, in which case may be able to transfer to [place] to consider celiac block or other therapies. POSTPROCEDURE DIAGNOSES: 1. Normal esophagus, stomach, and duodenum. 2. Stents protruding from the ampulla. 3. The above-noted stents grasped with snare and both removed. They appear to not be occluded. RECOMMENDATIONS: Advance diet as tolerated. Wean pain medicines as tolerated. We will see how he does in the next 24 hours. PROCEDURE IN DETAIL: After the patient was informed of the risks, benefits, and possible complications of endoscopy including perforation, bleeding, reaction to medication, and aspiration, informed consent was obtained. Once the patient was comfortable and sedated, a bite block was placed inside the orifice. The endoscope was advanced to the esophagus, stomach, and second and third portions of the duodenum and slowly removed. The ampulla appeared normal. Two stents coming out of it, very thin, consistent with history of pancreatic duct stent. The stomach was normal. The esophagus was normal. The stents were grasped with an endoscopic snare and removed easily. Second-look showed no bleeding of the ampulla or trauma. Second look of the stomach was normal. Scope was removed. The patient tolerated the procedure well. There were no complications. Job ID: [id number]
[2019-11-04] MEDS: Pantoprazole 40 MG VIAL IVP SCH (11:59)
--- NOTE | 2019-11-04 18:32 | PDOC.HOSPP ---
- Subjective Encounter Date: 11/04/19 Encounter Time: 18:30 Subjective: Mr. Oliveros was seen today in follow-up of Sphincter of Oddi dysfunction. He is post removal of the pancreatic STENTs He says he feels much better now. He has not had to use pain medication. - Objective Vital Signs & Weight: Vital Signs (12 hours) Temp Pulse Resp BP Pulse Ox 11/04/19 16:02 80 144/96 H 93 L 11/04/19 12:34 148/87 H 11/04/19 12:19 157/108 H 95 11/04/19 12:15 83 11/04/19 11:52 92 L 11/04/19 11:51 98.6 F 83 20 159/91 H 92 L 11/04/19 08:56 132/85 11/04/19 08:52 98.6 F 83 12 148/100 H Weight Weight 275 lb 14.4 oz Result Diagrams: 11/02/19 05:33 11/02/19 05:33 Hospitalist ROS - Medication Medications: Active Medications Generic Name Dose Route Start Last Admin Trade Name Freq PRN Reason Stop Dose Admin Enoxaparin Sodium 30 mg 11/02/19 21:00 11/03/19 20:48 Lovenox SC 30 mg 2100 MYRNA Administration Hydralazine HCl 10 mg 11/01/19 10:11 11/04/19 12:15 Apresoline SLOW IVP 10 mg Q4H PRN Administration SBP > 180 and HR < 70 Hydromorphone HCl 0 mg 10/31/19 22:39 11/04/19 01:09 Dilaudid Cadd IV 10 mg INF PRN Administration Pain Sodium Chloride 1,000 mls @ 150 mls/hr 11/01/19 13:45 11/04/19 16:53 Normal Saline 0.9% IV 1,000 mls .Q6H40M MYRNA Administration Promethazine HCl 12.5 mg/ 50.5 mls @ 202 mls/hr 11/02/19 17:04 11/04/19 08:45 Sodium Chloride IVPB 50.5 mls Q6H PRN Administration Nausea/Vomiting Ondansetron HCl 4 mg 11/01/19 10:11 11/04/19 04:10 Zofran IVP 4 mg Q6H PRN Administration Nausea/Vomiting Pantoprazole Sodium 40 mg 11/02/19 09:00 11/04/19 11:59 Protonix IVP Not Given DAILY MYRNA - Exam Eye: PERRL Heart: RRR, no murmur, no gallops, no rubs, normal peripheral pulses Respiratory: CTAB, no wheezes, no rales, no ronchi, normal chest expansion Gastrointestinal: soft, non-tender, non-distended, normal bowel sounds, no palpable masses Extremities: no cyanosis Hosp A/P (1) Nausea and vomiting Code(s): R11.2 - NAUSEA WITH VOMITING, UNSPECIFIED Status: Acute (2) RUQ abdominal pain Code(s): R10.11 - RIGHT UPPER QUADRANT PAIN Status: Acute (3) Sphincter of Oddi dysfunction Code(s): K83.4 - SPASM OF SPHINCTER OF ODDI Status: Acute - Plan * Sphincter of Oddi Dysfunction with chronic Pancreatitis- continue IV fluids * His diet is being advanced * Hopefully home tomorrow
[2019-11-04] MEDS: Enoxaparin Sodium 30 MG/0.3 ML SYRINGE SC SCH (19:32)
[2019-11-04 21:28] VITALS: TEMP 98.5
[2019-11-05] MEDS: Sodium Chloride 0.9% 1,000 ML IV SCH ×2 (05:07→06:30)
[2019-11-05] MEDS: Promethazine HCl 12.5 MG in Sodium Chloride 0.9% 50 ML IVPB PRN (06:29)
[2019-11-05 07:34] VITALS: BP 148/95
[2019-11-05] MEDS: Pantoprazole 40 MG VIAL IVP SCH (09:36)
--- NOTE | 2019-11-05 16:47 | PRG ---
DATE OF SERVICE: 11/05/2019 SUBJECTIVE: Mr. Oliveros is much better. He is able to tolerate liquids last night, tells today he is off TROLLEY WORKER pump. No more nausea. He would like to go home. OBJECTIVE: VITAL SIGNS: Temperature 98, pulse 82, blood pressure 148/95, 152/99. ABDOMEN: Soft and nontender. Bowel sounds are scant. EXTREMITIES: No clubbing, cyanosis, or edema. ASSESSMENT: Flare, acute on chronic pancreatitis, although lipase is normal. CT was negative. As in the past, removing biliary stents resulted in resolution of symptoms. The stents appear to be in good position at the time of endoscopy. No evidence of impingement on . PLAN: We will send him home on some p.r.n. Zofran. No narcotic pain medicines and we will give him some pancreatic enzymes, 3600 units of pancrelipase, three with meals, two with snacks. He is to follow up Dr. Odell in the office in a couple in 2-3 weeks to discuss further management, whether the stents can be replaced or whether if he gets recurrent pain, maybe some thought to be given to celiac ablation or celiac block. Job ID: [id number]
--- NOTE | 2019-11-05 19:56 | DIS ---
DATE OF ADMISSION: 10/31/2019 DATE OF DISCHARGE: 11/05/2019 PRIMARY CARE PHYSICIAN: Tara Barrera MD DISCHARGE DISPOSITION: Home. DISCHARGE DIAGNOSES: 1. Sphincter of Oddi dysfunction. 2. Pancreatitis secondary to sphincter of Oddi dysfunction. 3. Obesity. DISCHARGE MEDICATIONS: Include Zofran 8 mg q.4 as needed. IMAGING DURING HOSPITAL STAY: The patient had a CT scan of the abdomen and pelvis in which there was new pancreatic duct stent projecting into the second portion of the duodenum. There was no evidence of upstream dilatation to suggest an occlusion. There was no CT evidence of active pancreatitis. The patient had removal of the pancreatic stents. CODE STATUS: Full code. ALLERGIES: TO AZITHROMYCIN BASE, LORAZEPAM, TETRACYCLINE, AND MEPERIDINE. HOSPITAL COURSE: Mr. Oliveros is a pleasant 48-year-old gentleman, who was admitted to the hospital with abdominal pain. He has a known history of sphincter of Oddi dysfunction. He has had multiple pancreatic stents in the past. He was admitted and he was seen by Gastroenterology. He was made n.p.o. and placed on IV fluids and IV analgesics. Dr. Cavazos communicated with Dr. Cortés, his computer art instructor in [place] and ultimately made a decision to go ahead and remove the stents since the patient had continued abdominal pain. The patient seem to have immediate relief of his symptoms after removal of the stents. He was able to advance his diet and he had resolution of the pain. The patient will continue to have the stents out until he is seen by Dr. Cortés in the future, at which time, it will be decided when to replace the stents. The patient is to follow up with his primary care physician in approximately 1 week and also with Dr. Cavazos and Dr. Cortés as instructed. Job ID: [id number]
== END 2019-11-05 13:20 | disposition home or self-care (01) | DRG 440 ==
LOC: ERS 18:19 → 2SW 22:00 → OBSVTOIN 22:23 → 2SW 22:23 → T4-A 11-01 20:52
PROVIDERS: ADMIT Hospitalist; ATTEND Hospitalist
PROC: 0FPD8DZ Removal of Intraluminal Device from Pancreatic Duct, Via Natural or Artificial Opening Endoscopic (ICD-10-PCS; principal; 2019-11-04)
DX: K85.90 Acute pancreatitis without necrosis or infection, unspecified (principal); K83.4 Spasm of sphincter of Oddi; E86.0 Dehydration; K86.1 Other chronic pancreatitis; T85.898A Other specified complication of other internal prosthetic devices, implants and grafts, initial encounter; Y83.8 Other surgical procedures as the cause of abnormal reaction of the patient, or of later complication, without mention of misadventure at the time of the procedure; E66.9 Obesity, unspecified; Z68.36 Body mass index [BMI] 36.0-36.9, adult; Z90.49 Acquired absence of other specified parts of digestive tract; Z98.890 Other specified postprocedural states; Z88.1 Allergy status to other antibiotic agents; Z88.8 Allergy status to other drugs, medicaments and biological substances
CPT/HCPCS: 36415; 74018; 74177; 80048; 80053; 83690; 85025; 96361; 96374; C9113; J0360; J1650; J2270; J2405; J2550; J2704; Q9967

== ENCOUNTER 2020-01-24 19:27 | Inpatient (IN) | payer OTHER, BC ==
[~2020-01-24 19:27] MED LIST: Heparin 1,000 UNITS/ML VIAL ONE
[2020-01-24] MEDS ORDERED: Milk Of Magnesia 30 ML UDCUP PO PRN (19:48)
[2020-01-24] MEDS ORDERED: diphenhydrAMINE 50 MG CAP PO PRN (19:48)
[2020-01-24] MEDS ORDERED: Morphine 4 MG/ML VIAL SLOW IVP PRN (19:48)
[2020-01-24] MEDS ORDERED: Promethazine HCl 25 MG SUPP PR PRN (19:48)
[2020-01-24] MEDS ORDERED: Docusate 100 MG CAP PO PRN (19:48)
[2020-01-24] MEDS ORDERED: Bisacodyl 10 MG SUPP PR PRN (19:48)
[2020-01-24] MEDS ORDERED: Promethazine HCl 25 MG/ML VIAL IM PRN (19:48)
[2020-01-24] MEDS ORDERED: Mag-Al 1200 mg/1200 mg/30 ML UDCUP PO PRN (19:48)
[2020-01-24] MEDS ORDERED: Labetalol HCl 100 MG/20 ML VIAL SLOW IVP PRN (19:48)
[2020-01-24] MEDS ORDERED: diphenhydrAMINE 50 MG/ML VIAL IVP PRN (19:48)
[2020-01-24] MEDS: Sodium Chloride 0.9% 1,000 ML IV SCH (20:34)
[2020-01-24] MEDS ORDERED: Sodium Chloride 0.9% (PF) 10 ML VIAL FS PRN (20:51)
[2020-01-24 21:11] LABS: #Lymphocytes 1.4 thou/uL (1.20-3.40); #Monocytes 0.4 thou/uL (0.11-0.59); #Neutrophils 8.3 thou/uL (1.40-6.50); %Basophils 0.3 % (0.0-1.0); %Eosinophils 0.1 % (0.0-10.0); %Lymphocytes 13.4 % (21.0-51.0); %Monocytes 4.4 % (0.0-10.0); %Neutrophils 81.8 % (42.0-75.0); Hemoglobin 17.6 g/dL (14.0-18.0); Mean Corpuscular Hemoglobin 30.4 pg (27.0-31.0); Mean Corpuscular Volume 89.7 fL (78.0-98.0); Mean Platelet Volume 7.8 fL (7.4-10.4); Platelet Count 164 thou/uL (130-400); RBC Distribution Width 12.8 % (11.5-14.5); Red Blood Cell (RBC) Count 5.78 mill/uL (4.70-6.10); White Blood Cell (WBC) Count 10.1 thou/uL (4.8-10.8)
[2020-01-24] MEDS: niMODipine 30 MG CAP PO SCH (21:13)
[2020-01-24] MEDS: Pantoprazole 40 MG VIAL IVP SCH (21:14)
[2020-01-24] MEDS: HYDROcodone/Acetaminophen 7.5/325 mg Tablet PO PRN (21:16)
[2020-01-24 21:27] LABS: Anion Gap 15 mmol/L (10-20); BUN (Urea Nitrogen) 12 mg/dL (8.4-25.7); Calc. Creatinine Clearance 0 mL/min (70-130); Carbon Dioxide 19 mmol/L (22-29); Chloride 108 mmol/L (98-107); Estimated GFR-MDRD Greater than 90; Glucose 124 mg/dL (70-105); Potassium 3.4 mmol/L (3.5-5.1); Sodium 139 mmol/L (136-145)
--- NOTE | 2020-01-25 00:04 | CON ---
DATE OF CONSULTATION: 01/24/2020 CHIEF COMPLAINT: Worst headache of my life. HISTORY OF PRESENT ILLNESS: Mr. Oliveros is a 49-year-old gentleman who states he was going to the bathroom, and all of a sudden, he had the worst headache of his life. He describes the headache as sudden, 0 to 100. He states he never had a headache like this before. Said the headache felt like his head was in a vice. He called his crying because his head hurt so bad, and his son called 911. He denies nausea, vomiting, changes in visions, seizures, or loss of consciousness. PAST MEDICAL HISTORY: Headaches, pancreatitis, and sphincter of Oddi. PAST SURGICAL HISTORY: Knee surgery, shoulder surgery. ALLERGIES: TO DEMEROL, ERYTHROMYCIN, AND TETRACYCLINES. SOCIAL HISTORY: Denies smoking, alcohol, or drug use. MEDICATIONS: Creon. FAMILY HISTORY: Father: pulmonary distress, quadriplegic. Mother: aneurysm. REVIEW OF SYSTEMS: CONSTITUTION: Denies fever, chills. EAR, NOSE, AND THROAT: Denies changes in vision or hearing. CARDIAC: Denies chest pain, shortness of breath, diaphoresis. PULMONARY: Denies shortness of breath, cough, hemoptysis. GASTROINTESTINAL: Denies abdominal pain, nausea, vomiting, diarrhea, change in stool formation and consistency. GENITOURINARY: Denies trouble with urination, frequency of urination, bloody urine. SKIN: Denies skin rash, bruising, bleeding, skin masses. MUSCULOSKELETAL: As per history of present illness. NEUROLOGICAL: As per history of present illness. PSYCHOLOGICAL: Denies anxiety, depression, or behavior changes. PHYSICAL EXAMINATION: VITAL SIGNS: Blood pressure in the bed 176/100, afebrile. Currently on the unit, blood pressure is 122/92. HEENT: Pupils are equal. Extraocular movements are intact. NECK: Soft and supple. No masses are noted. Range of motion is intact and nonpainful. NEUROLOGICAL: Awake, alert, and oriented x3. Memory, attention, and fund of knowledge normal. Cranial nerves grossly intact. He has upper extremity 5/5 strength in deltoids, biceps, triceps, wrist extension, finger extensions, finger intrinsics. Sensation equal bilaterally. Lower extremities 5/5 bilateral strength in the iliopsoas, quadriceps, hamstrings, anterior tib, EHL, and gastrocnemius. There is no area of dermatomal sensory loss. The toes are downgoing. LABORATORY DATA: White blood cells 10, platelets 164. Sodium 139. INR 1.0. IMAGING: CT of the head showed a diffuse intracranial hemorrhage. CTA of the head, aneurysm from cerebral arteries or basal arteries. Question of accumulation of blood from an active bleed. PLAN: We will start Nimodipine 60 mg p.o. q.4. We will repeat the CT without contrast of the brain in the a.m. Also get a venous Doppler of bilateral lower extremities. Will get consent for angiography with possible coiling due to posible AIC aneurysm. If unable to be coiled, treatment plan would be for surgical intervention. Job ID: [id number] MTDD
[2020-01-25] MEDS: hydrALAZINE 20 MG/ML VIAL SLOW IVP PRN ×3 (00:20→11:40)
[2020-01-25] MEDS: HYDROcodone/Acetaminophen 7.5/325 mg Tablet PO PRN ×3 (01:03→23:06)
[2020-01-25] MEDS: niMODipine 30 MG CAP PO SCH ×6 (01:03→20:14)
[2020-01-25] MEDS: Morphine 2 MG/ML SYRINGE SLOW IVP PRN ×2 (01:22→04:17)
--- NOTE | 2020-01-25 07:11 | PRG ---
DATE OF SERVICE: 01/25/2020 SUBJECTIVE: I personally interviewed and examined the patient, agreed with documentation of Ganesh Lorenzo PA-C, dated 01/24/2020. Briefly, Jay Oliveros is a 49-year-old gentleman with a mother who of aneurysmal subarachnoid hemorrhage, presents with a thunderclap headache yesterday. CT imaging revealed subarachnoid hemorrhage and aneurysmal pattern. CT angiogram suggests a possible aneurysm on AICA artery on the left side. I could not visualize any other aneurysms. He was transferred from [facility] to [facility] in [place] for further treatment. He is admitted to the ICU overnight and resting relatively comfortably. The headache is terrible, but he has no other neurological complaints. Overnight, the maximum temperature that he reached was 98.7 degrees Fahrenheit. Blood pressures have been between 135 and 141. When I entered the room Mr. Oliveros wakes. He remembers that our children played hockey together, so his memory is intact. He remembers visiting with me previously in social settings. He has speech that is fluent. There is no dysarthria or dysphasia. His vision is intact. I do not find any cranial neuropathies. There is no lateralized motor or sensory deficits. CT imaging this morning shows continued subarachnoid blood in an aneurysmal pattern. This fills the prepontine cistern, the perimesencephalic cistern, the suprasellar cistern, and some of the sylvian cisterns as well. It is most dense in the posterior fossa and suprasellar area. CT angiography was noted above to reveal potential AICA aneurysm. In comparing the two CT scans, one this morning shows a slight increase in size in the third ventricle, but no overt hydrocephalus yet. Plan for Mr. Oliveros is to go to the angiography suite today. If the aneurysm is discovered, easily identified, and treatable with coiling, then that is my preference. If it cannot be coiled, it is a very difficult aneurysm to approach surgically. I have already discussed this with Mr. Oliveros. I will wait to see how the angiogram and possible coiling goes. Job ID: [id number] [facility]
--- NOTE | 2020-01-25 07:43 | ULT ---
BILATERAL LOWER EXTREMITY VENOUS DUPLEX ULTRASOUND INCLUDING COLOR AND SPECTRAL DOPPLER IMAGING: Date: 01/24/2020 HISTORY: Subarachnoid hemorrhage. History of chronic pancreatitis with pancreatic duct stent. TECHNIQUE: Exam performed from groin to ankle including visualized greater saphenous, common femoral, superficia l femoral, profunda femoral, popliteal, trifurcation, and posterior tibial vein regions. FINDINGS: Phasic flow noted at all levels with normal compressibility and normal augmentation. No intraluminal thrombus. IMPRESSION: No evidence for deep venous thrombosis. POS: RRE
[2020-01-25] MEDS: Fentanyl 100 MCG/2 ML VIAL SLOW IVP PRN ×4 (07:57→13:32)
[2020-01-25] MEDS: Sodium Chloride 0.9% 1,000 ML IV SCH ×3 (08:19→17:43)
[2020-01-25] MEDS: Pantoprazole 40 MG VIAL IVP SCH ×2 (08:37→20:15)
--- NOTE | 2020-01-25 09:07 | CT ---
PRELIMINARY REPORT/[facility]/EMERGENCY AFTER HOURS PROCEDURE: This report was discussed with kailee moe RN by Abelardo Diaz on Jan 25, 2020 04:27:00 CDT. Addendum electronically signed by Abelardo Diaz on January 25, 2020 4:28:35 AM CDT PROCEDURE: CT Head without Contrast . HISTORY: Subarachnoid hemorrhage. TECHNIQUE: Axial images were performed without the administration of IV contrast with or without mult iplanar reformations . COMPARISON: None . FINDINGS: Diffuse subarachnoid hemorrhage throughout basilar cisterns, both sylvian fissures, and in sulci over the convexities. Mild hydrocephalus involving 3rd and lateral ventricles. No midline shift. No acute skull or scalp abnormality. Visualized sinuses show LEFT maxillary and sphenoidal sinus cysts. Clear mastoids. IMPRESSION: Diffuse subarachnoid hemorrhage may be related to ruptured aneurysm and CTA head may be helpful. Mild hydrocephalus. ELECTRONICALLY SIGNED BY: Jorge Luis De Los Santos MD Jan 25, 2020 4:10:57 AM CDT This report is intended for review by the ordering physician only, in accordance of law. If you recei ve this report in error, please call [facility] at [phone]. FINAL REPORT BRAIN CT WITHOUT IV CONTRAST: EMERGENT AFTER HOURS EXAM TIME: 3:58 AM. DATE: 01/25/2020. FINDINGS/IMPRESSION: Extensive subarachnoid hemorrhage. Sphenoid and maxillary sinus mucosal disease. Mild hydrocephalus with dilatation of the third and lateral ventricles, particularly the temporal horns. This report is in agreement with the preliminary report. POS: RRE
[2020-01-25] MEDS ORDERED: Iopamidol 370 76% 100 ML VIAL ONE (09:09)
[2020-01-25] MEDS: Ondansetron PF 4 MG/2 ML Vial IVP PRN ×3 (09:59→19:15)
[2020-01-25] MEDS ORDERED: PROPOFOL 200 MG/20 ML VIAL ONE (11:26)
[2020-01-25] MEDS ORDERED: PHENYLEPHRINE-NS 100 MCG/ML 10 ML SYRINGE ONE (11:26)
[2020-01-25] MEDS ORDERED: Succinylcholine Chloride 20 MG/ML 10 ml SYRINGE FS ONE (11:26)
[2020-01-25] MEDS ORDERED: Ondansetron PF 4 MG/2 ML Vial ONE (11:26)
[2020-01-25] MEDS ORDERED: Rocuronium Bromide 10 MG/ML (10ML VIAL) ONE (11:26)
[2020-01-25] MEDS ORDERED: Glycopyrrolate 0.2 MG/ML 5 ML SYRINGE ONE (11:26)
[2020-01-25] MEDS ORDERED: Dexamethasone 20 MG/5 ML VIAL ONE (11:26)
[2020-01-25] MEDS ORDERED: Lidocaine 1% PF 5 ML VIAL ONE (11:26)
[2020-01-25] MEDS ORDERED: Heparin 10,000 UNITS/1 ML VIAL ONE ×2 (12:38→15:27)
[2020-01-25] MEDS ORDERED: Fentanyl 250 MCG/5 ML VIAL ONE (13:46)
[2020-01-25] MEDS ORDERED: Ketamine 50 MG/ML (10ML VIAL) ONE (14:07)
--- NOTE | 2020-01-25 14:47 | PRG ---
DATE OF SERVICE: 01/25/2020 Mr. Oliveros is a 49-year-old gentleman, referred by Dr. Gibbons, for what was believed to be aneurysmal subarachnoid hemorrhage. He was transferred from [facility] to [facility] last evening, where he had a CT scan performed, which shows diffuse subarachnoid hemorrhage throughout the basal cisterns with more blood eccentric to the left side. 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 No other aneurysms are identified on the CT angiogram. Clinically, he is doing well with complaint of severe headache as is expected. I reviewed all his images and discussed with Mr. Oliveros and his the diagnosis, the imaging, as well as the planned procedure this afternoon which will include cerebral angiography with potential for endovascular intervention. I reviewed with him both the risks of the procedure, which include but is not limited to rupture of the aneurysm and thromboembolic event. I discussed the alternatives as well as benefits of the procedure. I also discussed with them this is just first step in his recovery as over the next few weeks, he remains at risk for both hydrocephalus and symptomatic vasospasm. After answering all of their questions, I did provide a what I believe to be informed consent for the procedure. Job ID: [id number]
--- NOTE | 2020-01-25 15:52 | CON ---
DATE OF CONSULTATION: 01/25/2020 HISTORY OF PRESENT ILLNESS: Jay Oliveros is a 49-year-old male, who is admitted to the critical care unit with subarachnoid hemorrhage. Apparently, this started when he was in the bathroom and it was described as the worst headache of his life. He subsequently was admitted tentatively on the schedule for coiling of an aneurysm. PAST MEDICAL HISTORY: Remarkable for: 1. Headaches, which are entirely different. 2. 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 3. History of knee surgery. 4. History of shoulder surgery. 5. History of pancreatic duct stent placement intermittently in the past. 6. History of cholecystectomy. 7. History of an appendectomy. 8. History of multiple ERCPs. 9. History of endoscopy with endoscopic ultrasound in the past. SOCIAL HISTORY: He is nonsmoker, nondrinker, and nondrug user. FAMILY HISTORY: Negative for lung disease in early age. ALLERGIES: REPORTS ALLERGIES TO DEMEROL, ERYTHROMYCIN, AND TETRACYCLINE. REVIEW OF SYSTEMS: Otherwise negative. IMPRESSION AND PLAN: Subarachnoid bleed, stable currently, who is being followed by Neurosurgery. Lab work has been reviewed. He does not have elevation in liver enzymes at this time and his bilirubin is normal. We will follow. This is a 70 min consult with greater than 50% of the time spent on the unit with coordination of care. Job ID: [id number] [facility]
[2020-01-26] MEDS: niMODipine 30 MG CAP PO SCH ×6 (01:36→20:53)
[2020-01-26] MEDS ORDERED: Labetalol HCl 100 MG/20 ML VIAL SLOW IVP PRN (06:55)
[2020-01-26] MEDS ORDERED: hydrALAZINE 20 MG/ML VIAL SLOW IVP PRN (06:55)
[2020-01-26 07:55] LABS: #Lymphocytes 1.3 thou/uL (1.20-3.40); #Monocytes 0.8 thou/uL (0.11-0.59); #Neutrophils 10.1 thou/uL (1.40-6.50); %Lymphocytes 10.4 % (21.0-51.0); %Monocytes 6.2 % (0.0-10.0); %Neutrophils 83.4 % (42.0-75.0); Mean Corpuscular HGB CONC 33.8 g/dL (32.0-36.0); Mean Corpuscular Hemoglobin 31.3 pg (27.0-31.0); Mean Corpuscular Volume 92.6 fL (78.0-98.0); Mean Platelet Volume 8.5 fL (7.4-10.4); Platelet Count 173 thou/uL (130-400); RBC Distribution Width 13.1 % (11.5-14.5); Red Blood Cell (RBC) Count 5.13 mill/uL (4.70-6.10); White Blood Cell (WBC) Count 12.1 thou/uL (4.8-10.8)
[2020-01-26 08:15] LABS: Anion Gap 14 mmol/L (10-20); BUN (Urea Nitrogen) 9 mg/dL (8.4-25.7); Calc. Creatinine Clearance 209 mL/min (70-130); Calcium 8.4 mg/dL (7.8-10.44); Carbon Dioxide 17 mmol/L (22-29); Chloride 110 mmol/L (98-107); Estimated GFR-MDRD Greater than 90; Glucose 124 mg/dL (70-105); Potassium 3.8 mmol/L (3.5-5.1); Sodium 137 mmol/L (136-145)
[2020-01-26] MEDS: Pantoprazole 40 MG VIAL IVP SCH ×2 (08:18→20:54)
[2020-01-26] MEDS: Acetaminophen 325 MG TAB PO PRN (08:18)
[2020-01-26] MEDS: Sodium Chloride 0.9% 1,000 ML IV SCH ×3 (08:21→15:59)
--- NOTE | 2020-01-26 09:04 | CT ---
PRELIMINARY REPORT/[facility]/EMERGENCY AFTER HOURS PROCEDURE: PROCEDURE: CT Head without Contrast . HISTORY: Follow-up subarachnoid hemorrhage. TECHNIQUE: Axial images were performed without the administration of IV contrast with or without mult iplanar reformations . COMPARISON: 01/25/2020. FINDINGS: Mild improvement of the patient's subarachnoid hemorrhage with some resorption in sulci over the conv exities and in the sylvian fissures as well as basilar cisterns with less amount of hemorrhage presen t. Interval placement of aneurysm coil posterior to the sella on the LEFT. Unchanged mild hydrocephalus both lateral and 3rd ventricles. IMPRESSION: Improving subarachnoid hemorrhage. Unchanged mild hydrocephalus. Interval placement of aneurysm coil posterior to the sella. ELECTRONICALLY SIGNED BY: Jorge Luis De Los Santos MD Jan 26, 2020 4:43:43 AM CDT This report is intended for review by the ordering physician only, in accordance of law. If you recei ve this report in error, please call [facility] at [phone]. FINAL REPORT EMERGENT AFTER HOURS CT BRAIN: IMPRESSION: Agree with the preliminary interpretation. POS: BETHANY
--- NOTE | 2020-01-26 09:58 | PRG ---
DATE OF SERVICE: 01/26/2020 SUBJECTIVE: Mr. Oliveros is in subarachnoid hemorrhage day #3. 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 I saw Mr. Oliveros in his ICU room this morning. He is resting comfortably. His headache is better than it was yesterday, but remains quite severe. He has not had any difficulty with speech or motor activity overnight. OBJECTIVE: VITAL SIGNS: Among the electronically recorded vital signs, I see a maximum temperature of 98.6 degrees. Blood pressures have ranged between the 120s and 140s. GENERAL: Mr. Oliveros is awake. He is alert. He speaks well. NEUROLOGIC: There is no dysphasia or dysarthria. The cranial nerves appear intact. There is no neglect. He is moving both sides of the body well. Today, sodium is 137. His white blood cell count is 12.1. His hemoglobin is 16.0. A CT scan done this morning shows stability of the ventricular size. In fact, I think the ventricles are slightly smaller than they were yesterday. There is less blood in the subarachnoid space as well. Mr. Oliveros had an AICA aneurysm coiled yesterday. This aneurysm is likely the source of his subarachnoid hemorrhage. It has now been secured. We will let the blood pressure drift upwards. We will get a daily CBC and chemistry panel. I will start checking magnesium daily as well. I do not plan another CT scan unless there is a new deficit. We are not going to push the blood pressure unless there is a deficit, but we will allow it to drift up to 180s. I do believe Mr. Oliveros needs to move around. He should stand up with a walker around his room, sit in a chair, but we should continue our neuro checks. Job ID: [id number]
[2020-01-26] MEDS: HYDROcodone/Acetaminophen 7.5/325 mg Tablet PO PRN ×3 (10:26→20:53)
--- NOTE | 2020-01-26 12:11 | PRG ---
DATE OF SERVICE: 01/26/2020 SUBJECTIVE: Mr. Oliveros says he is feeling 100% better than he felt yesterday. OBJECTIVE: VITAL SIGNS: Heart rate 53, blood pressure 141/88, respiratory rate . LUNGS: Clear. HEART: Regular rhythm. ABDOMEN: Soft. LABORATORY DATA: White count 12.1, hemoglobin 16.0, . Sodium 137, potassium 3.8, chloride 110, bicarb 17, BUN 9, creatinine 0.73. status post subarachnoid bleed, status post coiling procedure yesterday by Dr. Fair . Job ID: [id number]
[2020-01-26] MEDS: Pancrelipase DR 12000 1 CAP PO SCH ×2 (12:42→17:16)
[2020-01-26] MEDS: Fentanyl 100 MCG/2 ML VIAL SLOW IVP PRN (23:14)
[2020-01-27] MEDS: Sodium Chloride 0.9% 1,000 ML IV SCH ×3 (00:18→15:15)
[2020-01-27] MEDS: niMODipine 30 MG CAP PO SCH ×6 (01:16→20:04)
[2020-01-27] MEDS: Fentanyl 100 MCG/2 ML VIAL SLOW IVP PRN ×5 (02:30→17:15)
[2020-01-27] MEDS: Ondansetron PF 4 MG/2 ML Vial IVP PRN (02:42)
[2020-01-27] MEDS: Promethazine 25 MG TAB PO PRN ×3 (03:22→20:12)
[2020-01-27 03:36] LABS: Bilirubin Negative (Negative); Blood, Urine Negative (Negative); Clarity Clear (Clear); Glucose, Urine (Dipstick) Normal (Negative); Leukocyte Negative Leu/uL (Negative); Nitrite Negative (Negative); Protein, Urine (Dipstick) Negative (Neg-Trace); Urobilinogen Normal mg/dL (Less than 2)
[2020-01-27 03:43] LABS: #Monocytes 1.1 thou/uL (0.11-0.59); #Neutrophils 10.3 thou/uL (1.40-6.50); %Basophils 0.1 % (0.0-1.0); %Eosinophils 0.1 % (0.0-10.0); %Monocytes 8.4 % (0.0-10.0); %Neutrophils 76.4 % (42.0-75.0); Hemoglobin 15.7 g/dL (14.0-18.0); Mean Corpuscular HGB CONC 33.4 g/dL (32.0-36.0); Mean Corpuscular Hemoglobin 30.8 pg (27.0-31.0); Mean Corpuscular Volume 92.2 fL (78.0-98.0); Mean Platelet Volume 9.1 fL (7.4-10.4); Platelet Count 166 thou/uL (130-400); RBC Distribution Width 13.4 % (11.5-14.5); Red Blood Cell (RBC) Count 5.08 mill/uL (4.70-6.10); White Blood Cell (WBC) Count 13.5 thou/uL (4.8-10.8)
[2020-01-27 04:07] LABS: Anion Gap 13 mmol/L (10-20); BUN (Urea Nitrogen) 12 mg/dL (8.4-25.7); Calc. Creatinine Clearance 203 mL/min (70-130); Calcium 8.4 mg/dL (7.8-10.44); Carbon Dioxide 20 mmol/L (22-29); Chloride 108 mmol/L (98-107); Estimated GFR-MDRD Greater than 90; Glucose 109 mg/dL (70-105); Magnesium 1.9 mg/dL (1.6-2.6); Potassium 3.5 mmol/L (3.5-5.1); Sodium 137 mmol/L (136-145)
[2020-01-27] MEDS: HYDROcodone/Acetaminophen 7.5/325 mg Tablet PO PRN ×2 (06:23→20:04)
--- NOTE | 2020-01-27 07:07 | PRG ---
DATE OF SERVICE: 01/27/2020 We are now at subarachnoid hemorrhage day #4, post coiling day #2 from a ruptured AICA aneurysm. Mr. Oliveros continues to have headache. He enjoyed getting out of bed yesterday and tells me he was up quite a bit and trying to move around the room as much as he could. He continues to have headache, but no other neurological deficit. The maximum temperature in the last 24 hours that I see recorded is 98.4 degrees. Blood pressures have been between 122 and 146. Mr. Oliveros's neurological examination is normal. Cranial nerves are intact. Alternating rapid motions are performed rapidly and smoothly on both sides of the body. There are no lateralizing motor or sensory deficits. Sodium is 137 this morning. White blood cell count 13.5. Magnesium 1.9. Mr. Oliveros has entered the period with increased vasospasm risk, and so far he is asymptomatic. We will continue to monitor him in the ICU. I would like to see the white blood cell count trending downwards. If his sodium holds, I will be happy ; if it begins to drop, we will change to a more concentrated IV fluid solution. Job ID: [id number] [facility]
[2020-01-27] MEDS: Pancrelipase DR 12000 1 CAP PO SCH ×3 (08:14→17:12)
[2020-01-27] MEDS: Pantoprazole 40 MG VIAL IVP SCH ×2 (08:16→20:04)
--- NOTE | 2020-01-27 16:54 | PRG ---
DATE OF SERVICE: 01/27/2020 SUBJECTIVE: Gregory Oliveros only has complaints of a headache. He ambulated with Physical Therapy. OBJECTIVE: VITAL SIGNS: Heart rates in the 60s, blood pressure 149/89, respiratory rate is in the teens, oximetry is 93% on room air. LUNGS: Clear. HEART: Regular rhythm. ABDOMEN: Soft. LABORATORY DATA: White count 13.5, hemoglobin 15.7, platelets 166. Sodium 137, potassium 3.5, chloride 108, bicarb 20, BUN 12, creatinine 0.75. IMPRESSION: Subarachnoid bleed, status post aneurysm coiling, clinically stable. PLAN: Continue supportive care. Job ID: [id number]
--- NOTE | 2020-01-27 17:50 | CCL ---
DATE OF SERVICE: 01/25/20 SURGEON: Elvis Fair M.D. [facility]MIN[facility]ATOR [facility]ARE FACILITY: None. INDICATION: Aneurysmal subarachnoid hemorrhage. DIAGNOSIS: Left AICA aneurysm with subarachnoid hemorrhage. PROCEDURE: Diagnostic subtraction angiography with endovascular coiling of left AICA aneurysm. ANESTHESIA: General. TECHNIQUE: The patient was brought into the angiogram suite and placed under anesthesia. Both groins were preppe d and draped and draped in the usual sterile fashion. Following an appropriate operative pause, 1% li docaine was used to inject the right groin. A 5 Martiniquais micropuncture set was used to gain access to t he right common femoral artery. Using the Seldinger technique, a 5 Martiniquais shuttle select catheter was passed over 130 cm diagnostic catheter passed over a Bentzen guide wire and advanced into the aortic arch where the right vertebral artery was selectively catheterized. An AP and lateral angiogram was performed as there were several oblique views revealing the presence of a left AICA region aneurysm w hich measured roughly 2 x 2.5 x 2.5 mm in dimension. Initially an [place] 14 microcatheter was used t o try to catheterize the aneurysm. After multiple attempts and without successful, we transitioned t o an [place] 10 microcatheter over a transcend microguide wire which was then place in the dome of th e aneurysm where one 2 mm coil was deployed successfully. All catheters were then removed. Hemostasis was maintained with manual compression. The procedure came to an end without known complication. IMPRESSION: The patient underwent successful angiography. The angiography revealed the presence of a 2 x 2.5 x 2. 5 mm AICA aneurysm on the left. The patient underwent successful endovascular coiling. A postprocedur al angiogram revealed appropriate filling of all parent vessels without obvious sign of complication.
[2020-01-28] MEDS: niMODipine 30 MG CAP PO SCH ×6 (00:05→21:17)
[2020-01-28] MEDS: HYDROcodone/Acetaminophen 7.5/325 mg Tablet PO PRN ×6 (00:06→21:17)
[2020-01-28] MEDS: Sodium Chloride 0.9% 1,000 ML IV SCH ×3 (01:12→17:04)
[2020-01-28 04:27] LABS: #Lymphocytes 1.7 thou/uL (1.20-3.40); #Monocytes 0.9 thou/uL (0.11-0.59); %Basophils 0.3 % (0.0-1.0); %Eosinophils 0.3 % (0.0-10.0); %Lymphocytes 17.1 % (21.0-51.0); %Monocytes 9.5 % (0.0-10.0); %Neutrophils 72.7 % (42.0-75.0); Hemoglobin 16.2 g/dL (14.0-18.0); Mean Corpuscular HGB CONC 35.3 g/dL (32.0-36.0); Mean Corpuscular Hemoglobin 31.9 pg (27.0-31.0); Mean Corpuscular Volume 90.4 fL (78.0-98.0); Mean Platelet Volume 8.1 fL (7.4-10.4); Platelet Count 149 thou/uL (130-400); Red Blood Cell (RBC) Count 5.07 mill/uL (4.70-6.10); White Blood Cell (WBC) Count 9.6 thou/uL (4.8-10.8)
[2020-01-28 04:40] LABS: Anion Gap 12 mmol/L (10-20); BUN (Urea Nitrogen) 9 mg/dL (8.4-25.7); Calc. Creatinine Clearance 212 mL/min (70-130); Calcium 8.5 mg/dL (7.8-10.44); Carbon Dioxide 21 mmol/L (22-29); Chloride 108 mmol/L (98-107); Estimated GFR-MDRD Greater than 90; Glucose 118 mg/dL (70-105); Potassium 3.1 mmol/L (3.5-5.1); Sodium 138 mmol/L (136-145)
[2020-01-28] MEDS: Potassium Chloride 20 MEQ TAB PO SCH ×2 (08:08→17:03)
[2020-01-28] MEDS: levETIRAcetam 500 MG TAB PO SCH ×2 (08:08→21:18)
[2020-01-28] MEDS: Ondansetron PF 4 MG/2 ML Vial IVP PRN ×2 (08:08→23:17)
--- NOTE | 2020-01-28 08:08 | PRG ---
DATE OF SERVICE: 01/28/2020 I saw Mr. Oliveros in the ICU earlier this morning. He had a rather uneventful day yesterday. He reports that his headache is under better control today, although he says that he will have an ice pack on top of his head. Among the electronically recorded vital signs, the maximum temperature I see is 98.3 degrees Fahrenheit. Blood pressures have ranged between the 120s and 160s. Mr. Oliveros is awake. He is alert. His speech is fluent. There is no dysarthria or dysphasia. There is no cranial neuropathy. There is no lateralizing motor or sensory deficits. This morning, sodium is 138, the white blood cell count is 9.6, the hemoglobin is 16.2. I do notice mild hypokalemia at 3.1. We are now out subarachnoid hemorrhage day 5, post coiling day #3. Mr. Oliveros is having no symptoms of vasospasm. We are keeping him on a rather high rate of normal saline IV, which is washing out some of his potassium. I will replace that orally. I will change many of his medications to oral medicines. He has been neurologically stable for the last 5 days. If we were in a crunch for ICU beds, he can move to the floor this evening. Otherwise, Dr. Ngo and the weekend team could move him out of the ICU tomorrow morning. He will still need his neuro checks on a regular basis so that we are aware of any neurological deficit that comes. We will keep his IV fluid running at a high rate. Job ID: [id number] MTDD
--- NOTE | 2020-01-28 08:59 | PRG ---
DATE OF SERVICE: 01/28/2020 SUBJECTIVE: Jay Oliveros complains of a headache he is feeling well. OBJECTIVE: VITAL SIGNS: His heart rate is in the 60s, blood pressure 141/84, respiratory rates in the teens. LUNGS: Unchanged. HEART: Unchanged. ABDOMEN: Unchanged. He is tentatively on the schedule to move out of the ICU. LABORATORY DATA: White count 9.6, hemoglobin 16.2, platelets 149. Sodium 138, potassium 3.1, chloride 108, bicarb 21, BUN 9, creatinine 0.7. IMPRESSION: 1. Status post coiling of an aneurysm after an aneurysmal bleed. 2. History of sphincter of Oddi dysfunction with recurrent pancreatitis, clinically not an issue at this time. He is scheduled to go to the Stroke Unit today. We will sign off on transfer out of critical care unit. Job ID: [id number]
[2020-01-28] MEDS: Pancrelipase DR 12000 1 CAP PO SCH ×3 (09:41→17:53)
[2020-01-28] MEDS: Fentanyl 100 MCG/2 ML VIAL SLOW IVP PRN ×3 (14:43→23:17)
[2020-01-29] MEDS: niMODipine 30 MG CAP PO SCH ×6 (00:42→20:51)
[2020-01-29] MEDS: Sodium Chloride 0.9% 1,000 ML IV SCH ×3 (02:28→20:52)
[2020-01-29] MEDS: HYDROcodone/Acetaminophen 7.5/325 mg Tablet PO PRN ×4 (02:32→20:51)
[2020-01-29 04:36] LABS: #Eosinphils 0.1 thou/uL (0.0-0.7); #Lymphocytes 1.6 thou/uL (1.20-3.40); #Neutrophils 7.8 thou/uL (1.40-6.50); %Basophils 0.2 % (0.0-1.0); %Eosinophils 1.1 % (0.0-10.0); %Lymphocytes 15.2 % (21.0-51.0); %Monocytes 9.4 % (0.0-10.0); %Neutrophils 74.2 % (42.0-75.0); Hemoglobin 16.1 g/dL (14.0-18.0); Mean Corpuscular HGB CONC 33.8 g/dL (32.0-36.0); Mean Corpuscular Hemoglobin 30.9 pg (27.0-31.0); Mean Corpuscular Volume 91.5 fL (78.0-98.0); Mean Platelet Volume 7.5 fL (7.4-10.4); Platelet Count 164 thou/uL (130-400); RBC Distribution Width 12.8 % (11.5-14.5); Red Blood Cell (RBC) Count 5.22 mill/uL (4.70-6.10); White Blood Cell (WBC) Count 10.5 thou/uL (4.8-10.8)
[2020-01-29 04:57] LABS: Anion Gap 13 mmol/L (10-20); BUN (Urea Nitrogen) 7 mg/dL (8.4-25.7); Calc. Creatinine Clearance 227 mL/min (70-130); Calcium 8.5 mg/dL (7.8-10.44); Carbon Dioxide 21 mmol/L (22-29); Chloride 103 mmol/L (98-107); Estimated GFR-MDRD Greater than 90; Glucose 113 mg/dL (70-105); Potassium 3.2 mmol/L (3.5-5.1); Sodium 134 mmol/L (136-145)
[2020-01-29] MEDS: Pancrelipase DR 12000 1 CAP PO SCH ×3 (06:39→18:31)
[2020-01-29] MEDS: levETIRAcetam 500 MG TAB PO SCH ×2 (08:13→20:51)
[2020-01-29] MEDS: Potassium Chloride 20 MEQ TAB PO SCH ×2 (08:14→16:02)
[2020-01-29] MEDS: Acetaminophen 325 MG TAB PO PRN (10:44)
--- NOTE | 2020-01-29 13:20 | PRG ---
DATE OF SERVICE: 01/29/2020 Approximately 35 minutes was spent in evaluating the patient and his medical records on the floor. The patient was transferred to the floor from the ICU at some point last night. He is currently alert and appropriate and has been walking. He had a transient episode of diplopia that has resolved. He is getting 120 mL an hour of normal saline and his sodium was slightly low at 134. We will continue with the current course of action. I anticipate continued IV hydration through the weekend due to concerns for vasospasm. Job ID: [id number]
[2020-01-29] MEDS: Fentanyl 100 MCG/2 ML VIAL SLOW IVP PRN ×2 (16:04→18:28)
[2020-01-29] MEDS: Ondansetron PF 4 MG/2 ML Vial IVP PRN (20:58)
[2020-01-30] MEDS: niMODipine 30 MG CAP PO SCH ×6 (01:12→21:29)
[2020-01-30] MEDS: HYDROcodone/Acetaminophen 7.5/325 mg Tablet PO PRN ×3 (01:13→10:26)
[2020-01-30] MEDS: Sodium Chloride 0.9% 1,000 ML IV SCH ×2 (04:19→16:10)
[2020-01-30 04:53] LABS: #Basophils 0.1 thou/uL (0.0-0.2); #Eosinphils 0.1 thou/uL (0.0-0.7); #Lymphocytes 1.7 thou/uL (1.20-3.40); #Monocytes 0.9 thou/uL (0.11-0.59); #Neutrophils 6.8 thou/uL (1.40-6.50); %Basophils 0.6 % (0.0-1.0); %Eosinophils 1.5 % (0.0-10.0); %Lymphocytes 17.7 % (21.0-51.0); %Monocytes 9.4 % (0.0-10.0); %Neutrophils 70.9 % (42.0-75.0); Hemoglobin 16.3 g/dL (14.0-18.0); Mean Corpuscular HGB CONC 33.3 g/dL (32.0-36.0); Mean Corpuscular Hemoglobin 30.3 pg (27.0-31.0); Mean Corpuscular Volume 91.2 fL (78.0-98.0); Mean Platelet Volume 8.1 fL (7.4-10.4); Platelet Count 175 thou/uL (130-400); RBC Distribution Width 12.9 % (11.5-14.5); Red Blood Cell (RBC) Count 5.36 mill/uL (4.70-6.10); White Blood Cell (WBC) Count 9.6 thou/uL (4.8-10.8)
[2020-01-30 05:19] LABS: Anion Gap 13 mmol/L (10-20); BUN (Urea Nitrogen) 8 mg/dL (8.4-25.7); Calc. Creatinine Clearance 234 mL/min (70-130); Calcium 8.7 mg/dL (7.8-10.44); Carbon Dioxide 22 mmol/L (22-29); Chloride 104 mmol/L (98-107); Estimated GFR-MDRD Greater than 90; Glucose 111 mg/dL (70-105); Magnesium 2.1 mg/dL (1.6-2.6); Potassium 3.1 mmol/L (3.5-5.1); Sodium 136 mmol/L (136-145)
[2020-01-30] MEDS: Pancrelipase DR 12000 1 CAP PO SCH ×3 (06:48→18:21)
[2020-01-30] MEDS: levETIRAcetam 500 MG TAB PO SCH ×2 (10:30→21:30)
[2020-01-30] MEDS: Potassium Chloride 20 MEQ TAB PO SCH ×2 (10:30→18:21)
[2020-01-30] MEDS: Fentanyl 100 MCG/2 ML VIAL SLOW IVP PRN ×3 (13:31→22:27)
[2020-01-30 13:32] LABS: Anion Gap 12 mmol/L (10-20); BUN (Urea Nitrogen) 7 mg/dL (8.4-25.7); Calc. Creatinine Clearance 219 mL/min (70-130); Calcium 8.7 mg/dL (7.8-10.44); Carbon Dioxide 26 mmol/L (22-29); Chloride 101 mmol/L (98-107); Estimated GFR-MDRD Greater than 90; Glucose 112 mg/dL (70-105); Potassium 3.2 mmol/L (3.5-5.1); Sodium 136 mmol/L (136-145)
[2020-01-30] MEDS: Ondansetron PF 4 MG/2 ML Vial IVP PRN (16:10)
[2020-01-30] MEDS: Promethazine 25 MG TAB PO PRN (18:21)
--- NOTE | 2020-01-30 19:11 | PRG ---
DATE OF SERVICE: 01/30/2020 Mr. Oliveros is alert and appropriate. He has had no further diplopia. He still has mild headache. He has been walking and recently showered. We will continue with IV fluids. I did not see a BMP result yet in the computer for today and we will double check on this. Job ID: [id number]
[2020-01-31] MEDS: Sodium Chloride 0.9% 1,000 ML IV SCH (00:48)
[2020-01-31] MEDS: Fentanyl 100 MCG/2 ML VIAL SLOW IVP PRN ×3 (01:07→19:37)
[2020-01-31] MEDS: niMODipine 30 MG CAP PO SCH ×6 (01:07→20:50)
[2020-01-31] MEDS: HYDROcodone/Acetaminophen 7.5/325 mg Tablet PO PRN ×4 (02:11→23:15)
[2020-01-31] MEDS ORDERED: Morphine 2 MG/ML SYRINGE SLOW IVP SCH (03:45)
[2020-01-31] MEDS ORDERED: Furosemide 20 MG/2 ML VIAL SLOW IVP SCH (03:45)
[2020-01-31 04:22] LABS: #Eosinphils 0.1 thou/uL (0.0-0.7); #Lymphocytes 1.4 thou/uL (1.20-3.40); #Monocytes 0.8 thou/uL (0.11-0.59); #Neutrophils 8.6 thou/uL (1.40-6.50); %Basophils 0.1 % (0.0-1.0); %Eosinophils 0.7 % (0.0-10.0); %Lymphocytes 12.7 % (21.0-51.0); %Monocytes 7.2 % (0.0-10.0); %Neutrophils 79.3 % (42.0-75.0); Hemoglobin 16.6 g/dL (14.0-18.0); Mean Corpuscular HGB CONC 34.3 g/dL (32.0-36.0); Mean Corpuscular Hemoglobin 30.8 pg (27.0-31.0); Mean Corpuscular Volume 89.8 fL (78.0-98.0); Mean Platelet Volume 7.8 fL (7.4-10.4); Platelet Count 184 thou/uL (130-400); RBC Distribution Width 12.8 % (11.5-14.5); Red Blood Cell (RBC) Count 5.39 mill/uL (4.70-6.10); White Blood Cell (WBC) Count 10.9 thou/uL (4.8-10.8)
[2020-01-31 04:34] LABS: Anion Gap 12 mmol/L (10-20); BUN (Urea Nitrogen) 8 mg/dL (8.4-25.7); Calc. Creatinine Clearance 232 mL/min (70-130); Calcium 8.6 mg/dL (7.8-10.44); Carbon Dioxide 23 mmol/L (22-29); Chloride 101 mmol/L (98-107); Estimated GFR-MDRD Greater than 90; Glucose 110 mg/dL (70-105); Magnesium 1.9 mg/dL (1.6-2.6); Potassium 3.1 mmol/L (3.5-5.1); Sodium 133 mmol/L (136-145)
[2020-01-31 04:38] LABS: Troponin I 0.032 ng/mL (< 0.028)
[2020-01-31] MEDS ORDERED: Sodium Chloride 0.9% 1,000 ML IV SCH ×2 (06:00→06:45)
[2020-01-31] MEDS ORDERED: Potassium Chloride 20 MEQ TAB PO SCH (06:15)
--- NOTE | 2020-01-31 07:42 | RAD ---
Chest one view HISTORY: Chest pain. COMPARISON: 06/11/2019. FINDINGS: Cardiac silhouette is magnified by projection. Pulmonary vasculature accentuated by shallow inspiration. Mediastinum is midline. No lobar consolidation or evidence of pneumothorax. Postoperative changes lef t clavicle evident. supervisor calibration leads overlie the chest. IMPRESSION : No active cardiopulmonary abnormalities are demonstrated.
--- NOTE | 2020-01-31 07:47 | PRG ---
DATE OF SERVICE: 01/31/2020 I saw Jay Oliveros in his stroke unit room this morning. He is resting fairly comfortably. Overnight, he had an issue where he felt that his left leg was a bit swollen. It was hard to move it. It seemed to resolve. However , in the interim, his fluid was turned down. He was given IV Lasix. On Friday, had a transient episode of diplopia. Among the electronically recorded vital signs, the highest temperature I see recorded in the last 24 hours is 98.8 degrees Fahrenheit. His blood pressures have ranged between the 140s and 160s. Other vital signs have been relatively stable. Mr. Oliveros looks tired from having a fitful night. He does produce normal speech and is conversational. He denies any diplopia currently. His arms and legs are moving well. I do not see any lateralizing weakness right now. His sodium is lower this morning at 133. His white blood cell count is 10.9. His hemoglobin is 16.6. I am afraid Mr. Oliveros had 2 episodes of transient neurological decline from vasospasm over the weekend. The first was likely his diplopia that resolved and second his left leg motor weakness that has since resolved. Unfortunately, he was given Lasix, which I think will exacerbate his vasospasm by lowering intravascular volume a bit. His fluids have also been turned down. I am going to move him back to the ICU because I think he is at risk for stroke. We are going to turn off the IV fluids. We will monitor his blood pressure and keep it in the high range. We will make sure he mobilizes with assistance and walks as much as possible. I will increase the salt in his diet. I will ask the critical care team to take a look at him as well. Twice a day we will measure his sodium and will be more aggressive about following his magnesium as well. If need be, we will place an arterial line and use pressors. Hopefully, this transient episode goes away in the next few days, but I do not feel comfortable sending him home. Job ID: [id number] [facility]
[2020-01-31] MEDS ORDERED: Ondansetron ODT 8 MG TAB PO PRN (08:08)
[2020-01-31 08:25] LABS: Troponin I 0.027 ng/mL (< 0.028)
[2020-01-31] MEDS: levETIRAcetam 500 MG TAB PO SCH ×2 (08:57→20:50)
[2020-01-31] MEDS: Potassium Chloride 20 MEQ TAB PO SCH ×2 (08:57→17:15)
[2020-01-31] MEDS ORDERED: Pancrelipase DR 12000 1 CAP PO SCH (09:15)
[2020-01-31] MEDS ORDERED: Iopamidol-370 76% 500 ML 1 ML ONE (09:26)
[2020-01-31] MEDS: Sodium Chloride 256 MEQ in Sterile Water Injection 936 ML IV SCH (10:07)
--- NOTE | 2020-01-31 10:42 | PDOC.HOSPP ---
- Subjective Encounter Date: 01/31/20 Encounter Time: 10:35 Subjective: has been moved to icu this am for episode of nausea/vomiting, chest pain and lower extre swelling no current chest pain or palp has h/o sleep apnea noncompliant with cpap vision is blurry without eyeglasses, no double vision is moving all extremties. Mother of aneursym rupture in her 60's Father fell and became quadriplegic, in his 70's Does not smoke, use excessive alc or drugs Lives with his and 2 children Had cardiac stress test ? more than 10 yrs back for preop procedure due to his chronic pancreatitis, he does not know if it was a stress test - Objective Vital Signs & Weight: Vital Signs (12 hours) Temp Pulse Resp BP Pulse Ox 01/31/20 04:00 98.8 F 94 20 159/100 H 94 L 01/31/20 00:00 98.0 F 89 18 146/88 H 97 Weight Admit Weight 272 lb Weight 284 lb 11.2 oz Most Recent Monitor Data Heart Rate from ECG 64 NIBP 164/90 NIBP BP-Mean 114 Respiration from ECG 17 SpO2 95 I&O: 01/30/20 01/31/20 02/01/20 06:59 06:59 06:59 Intake Total 2359 1810 Output Total 2070 827 450 Balance 289 -827 1360 Result Diagrams: 01/31/20 03:57 01/31/20 03:56 Hospitalist ROS - Review of Systems Constitutional: reports: weakness Eyes: denies: pain, vision change, conjunctivae inflammation, eyelid inflammation, redness, other ENT: denies: ear pain, ear discharge, nose pain, nose discharge, nose congestion , mouth pain, mouth swelling, throat pain, throat swelling, other Respiratory: reports: shortness of breath Cardiovascular: reports: chest pain Gastrointestinal: denies: nausea, vomiting, abdominal pain, diarrhea, constipation, melena, hematochezia, other Genitourinary: denies: dysuria, frequency, incontinence, hematuria, retention, other Musculoskeletal: denies: neck pain, shoulder pain, arm pain, back pain, hand pain, leg pain, foot pain, other Skin: denies: rash, lesions, sarah, bruising, other Neurological: reports: weakness All other systems reviewed; all pertinent +/- noted in HPI/Subj - Medication Medications: Active Medications Generic Name Dose Route Start Last Admin Trade Name Freq PRN Reason Stop Dose Admin Acetaminophen 650 mg 01/24/20 19:48 01/29/20 10:44 Tylenol PO 650 mg Q4H PRN Administration Headache/Fever/Mild Pain (1-3) Hydrocodone Bitart/Acetaminophen 1 tab 01/24/20 19:48 01/31/20 02:11 [place] 7.5/325 PO 1 tab Q4H PRN Administration Moderate Pain (4-6) Hydrocodone Bitart/Acetaminophen 2 tab 01/24/20 19:48 01/30/20 10:26 [place] 7.5/325 PO 2 tab Q4H PRN Administration Severe Pain (7-10) Docusate Sodium 100 mg 01/24/20 19:48 01/29/20 20:58 Colace PO 100 mg BIDPRN PRN Administration Constipation Fentanyl 25 mcg 01/25/20 06:48 01/30/20 22:27 Sublimaze SLOW IVP 25 mcg Q2H PRN Administration Mild-Moderate Pain (1-5) Fentanyl 50 mcg 01/25/20 06:48 01/31/20 06:33 Sublimaze SLOW IVP 50 mcg Q2H PRN Administration Moderate to Severe Pain (6-10) Sodium Chloride 256 meq/ 1,000 mls @ 80 mls/hr 01/31/20 09:45 01/31/20 10:07 Sterile Water IV 1,000 mls INF MYRNA Administration Levetiracetam 500 mg 01/28/20 09:00 01/31/20 08:57 Keppra PO 500 mg BID MYRNA Administration Nimodipine 60 mg 01/24/20 21:00 01/31/20 08:57 Nimodipine PO 60 mg Q4HR MYRNA Administration Ondansetron HCl 4 mg 01/24/20 19:48 01/30/20 16:10 Zofran IVP 4 mg Q4H PRN Administration Nausea/Vomiting Pantoprazole Sodium 40 mg 01/28/20 09:00 01/31/20 08:57 Protonix PO 40 mg BID MYRNA Administration Potassium Chloride 20 meq 01/28/20 08:00 01/31/20 08:57 K-Dur PO 20 meq BID-WM MYRNA Administration Promethazine HCl 25 mg 01/24/20 19:48 01/30/20 18:21 Phenergan PO 25 mg Q4H PRN Administration Nausea/Vomiting - Exam General Appearance: awake alert Eye: PERRL, anicteric sclera ENT: no oropharyngeal lesions, dry oral mucosa Neck: supple, no JVD Heart: RRR, no murmur Respiratory: no wheezes, no rales, rhonchi Gastrointestinal: soft, non-tender, non-distended, normal bowel sounds, no guarding, no rigidity Extremities: no cyanosis, no edema Neurological: cranial nerve grossly intact, no focal deficits Psychiatric: normal affect, A&O x 3 Hosp A/P (1) SAH (subarachnoid hemorrhage) Code(s): I60.9 - NONTRAUMATIC SUBARACHNOID HEMORRHAGE, UNSPECIFIED Status: Acute (2) HTN (hypertension) Code(s): I10 - ESSENTIAL (PRIMARY) HYPERTENSION Status: Acute Qualifiers: Hypertension type: essential hypertension Qualified Code(s): I10 - Essential (primary) hypertension (3) Chest pain Code(s): R07.9 - CHEST PAIN, UNSPECIFIED Status: Resolved Qualifiers: Chest pain type: unspecified Qualified Code(s): R07.9 - Chest pain, unspecified (4) JJ (obstructive sleep apnea) Code(s): G47.33 - OBSTRUCTIVE SLEEP APNEA (ADULT) (PEDIATRIC) Status: Chronic (5) Obesity Code(s): E66.9 - OBESITY, UNSPECIFIED Status: Chronic (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 OF SPHINCTER OF ODDI Status: Chronic (7) Dyslipidemia Code(s): E78.5 - HYPERLIPIDEMIA, UNSPECIFIED Status: Chronic - Plan is on keppra, nimodipine q4h, protonix bid is s/p endovascular coiling of left AICA on 01/25/2020 by iv fluids has been dc'd by nsx, was on 125mls/hr ns prior to that cpap when sleeping oob to chair and mobilze if ok with nsx echo for lv function, will need outpt stress test, has multiple risk factors for heart disease ekg x2 on chart were reviewed, no stemi changes, has poor R wave progression with nonspecific ST-T wave changes hemostable nsx wants his BP to be a bit higher for today in view of events in the last 2 days including diplopia and leg weakness to prevent neurologic decompensation/ vasospasm. will f/u
[2020-01-31] MEDS: Ondansetron PF 4 MG/2 ML Vial IVP PRN ×2 (10:52→17:12)
[2020-01-31] MEDS: Pancrelipase DR 12000 1 CAP PO SCH ×3 (12:24→17:09)
[2020-01-31 12:33] LABS: Troponin I 0.014 ng/mL (< 0.028)
--- NOTE | 2020-01-31 13:01 | SPC ---
PICC PLACEMENT ULTRASOUND-GUIDED VENOUS ACCESS: (Peripherally inserted central catheter) DATE: 01/31/2020 HISTORY: 49-year-old male aneurysmal intracranial subarachnoid hemorrhage with poor IV access. Longer term IV access required for vasodilator injection to treat vasospasm, and for intravenous hydration. TECHNIQUE: Catheter caliber: 5 Maltese Catheter trim length:37 cm Catheter lumen number:double Catheter tip location:Superior vena cava/right atrial junction. Vein accessed:left basilic Performed portably at bedside in the CCU. Signed, informed consent was obtained. A tourniquet was sofia lied at the proximal aspect of the arm. The arm was prepped and draped in the usual sterile fashion. A 25-gauge needle was used to applied buffered lidocaine superficially. The vein was punctur ed with a 21-gauge micropuncture needle under ultrasound guidance. A 0.018 inch guidewire was advanced through the micropuncture needle and into the vein. Under intermittent portable chest radiog raph guidance, the guidewire was advanced to the superior vena cava. The PICC was flushed and trimmed to the appropriate length. The micropuncture needle was exchanged over the guidewire for a 5 Maltese peel-away dilator sheath. The dilator was exchanged over the guidewire for the PICC, which was then further advanced. The sheath and guidewire were removed. The PICC was flushed again and secu red in place at the arm after adjustment of tip position. The patient tolerated the procedure well. There was no complication. IMPRESSION: Successful placement of PICC (peripherally inserted central catheter).
--- NOTE | 2020-01-31 13:19 | ULT ---
ULTRASOUND DOPPLER DUPLEX VENOUS LEFT LOWER EXTREMITY: DATE: 01/31/2020 HISTORY: 49-year-old male with bilateral lower extremity edema TECHNIQUE: Grayscale, color-flow, and spectral analysis, of major veins of left lower extremity. FINDINGS: There is demonstration of blood flow with normal compressibility, of the left common femoral, profund a femoral, greater saphenous, femoral, popliteal, and posterior tibial, veins. IMPRESSION: Negative. No deep venous thrombosis of left lower extremity.
[2020-01-31 14:18] LABS: Anion Gap 18 mmol/L (10-20); BUN (Urea Nitrogen) 8 mg/dL (8.4-25.7); Calc. Creatinine Clearance 210 mL/min (70-130); Calcium 8.9 mg/dL (7.8-10.44); Carbon Dioxide 18 mmol/L (22-29); Chloride 99 mmol/L (98-107); Estimated GFR-MDRD Greater than 90; Glucose 114 mg/dL (70-105); Potassium 3.5 mmol/L (3.5-5.1); Sodium 131 mmol/L (136-145)
--- NOTE | 2020-01-31 14:53 | PRG ---
DATE OF SERVICE: 01/31/2020 SUBJECTIVE: Jay Oliveros was moved back into the ICU after having some chest discomfort that he describes as being left parasternal, aggravated by taking a deep breath and having some leg spasm. He was felt to be having vasospasm. PICC line has been placed. OBJECTIVE: VITAL SIGNS: Currently, his blood pressure is 130/92, it is in the 150s earlier; heart rates in the 90s; respiratory rates in the teens. LUNGS: Clear. HEART: Regular rhythm. ABDOMEN: Soft. LABORATORY DATA: White count 10.9, hemoglobin 16.6, platelets 194. Sodium 133, potassium 3.1, chloride 101, bicarb 23, BUN 8, creatinine 0.7. Doppler venogram was done, showing no clot in his left lower extremity, one was not done in his right lower extremity. Because of the pleuritic nature of his chest discomfort, I recommended a CT pulmonary angiogram, this is still pending. An echocardiogram shows normal ejection fraction. IMPRESSION: Cerebral vasospasm after subarachnoid bleed, appears clinically stable. We will be happy to follow the other physicians caring for him. Job ID: [id number]
--- NOTE | 2020-01-31 16:54 | CT ---
CT PULMONARY ANGIOGRAM WITH 3D POST PROCESSING: History: Chest pain FINDINGS: No filling defects are seen in the pulmonary artery vasculature to suggest pulmonary embolism. There are no filling defects in the pulmonary arteries and the lobar branches to suggest central pulmonary embolism. Peripheral arterial branches are not satisfactorily evaluated due to inadequate opacificati on. The aorta is opacified without aneurysm or dissection. No pleural or pericardial effusions are se en. There are calcified granulomas in the lungs. No pneumothoraces or lobar consolidations are seen. Upper abdominal tomograms demonstrate calcified granulomas in the spleen. The patient is post cholecy stectomy. No acute osseous abnormalities are seen. IMPRESSION: No CT evidence of central pulmonary embolism. POS: [facility]
--- NOTE | 2020-01-31 16:57 | EKG ---
Test Reason : CP Blood Pressure : / mmHG Vent. Rate : 075 BPM Atrial Rate : 075 BPM P-R Int : 106 ms QRS Dur : 092 ms QT Int : 410 ms P-R-T Axes : 046 031 031 degrees QTc Int : 457 ms Sinus rhythm with short IN Nonspecific T wave abnormality Abnormal ECG When compared with ECG of 17-APR-2018 07:29, Vent. rate has decreased BY 37 BPM Left anterior fascicular block is no longer Present Nonspecific T wave abnormality now evident in Lateral leads Confirmed by DR. José GAMEZ ([id number]) on 01/31/2020 4:57:35 PM Referred By: CEE Confirmed By:DR. José GAMEZ
--- NOTE | 2020-01-31 16:59 | EKG ---
Test Reason : C/O CHEST PAIN Blood Pressure : / mmHG Vent. Rate : 079 BPM Atrial Rate : 079 BPM P-R Int : 102 ms QRS Dur : 106 ms QT Int : 422 ms P-R-T Axes : 051 -77 010 degrees QTc Int : 483 ms Sinus rhythm with short PA Left anterior fascicular block Prolonged QT Abnormal ECG When compared with ECG of 17-APR-2018 07:29, No significant change was found Confirmed by DR. José GAMEZ ([id number]) on 01/31/2020 4:59:36 PM Referred By: JACKSON Confirmed By:DR. José GAMEZ
[2020-01-31] MEDS: Sodium Chloride 1 GM TAB PO SCH (17:12)
[2020-01-31] MEDS: Promethazine 25 MG TAB PO PRN (19:37)
[2020-02-01] MEDS: niMODipine 30 MG CAP PO SCH ×6 (02:07→20:11)
[2020-02-01] MEDS: HYDROcodone/Acetaminophen 7.5/325 mg Tablet PO PRN ×5 (03:04→20:11)
[2020-02-01 04:48] LABS: #Basophils 0.1 thou/uL (0.0-0.2); #Eosinphils 0.2 thou/uL (0.0-0.7); #Lymphocytes 2.1 thou/uL (1.20-3.40); #Monocytes 0.8 thou/uL (0.11-0.59); #Neutrophils 5.2 thou/uL (1.40-6.50); %Basophils 0.8 % (0.0-1.0); %Lymphocytes 25.3 % (21.0-51.0); %Monocytes 9.2 % (0.0-10.0); %Neutrophils 62.7 % (42.0-75.0); Hemoglobin 14.4 g/dL (14.0-18.0); Mean Corpuscular HGB CONC 33.4 g/dL (32.0-36.0); Mean Corpuscular Hemoglobin 30.6 pg (27.0-31.0); Mean Corpuscular Volume 91.6 fL (78.0-98.0); Mean Platelet Volume 7.5 fL (7.4-10.4); Platelet Count 165 thou/uL (130-400); Red Blood Cell (RBC) Count 4.71 mill/uL (4.70-6.10); White Blood Cell (WBC) Count 8.3 thou/uL (4.8-10.8)
[2020-02-01 05:22] LABS: Chloride 116 mmol/L (98-107); Sodium 145 mmol/L (136-145)
[2020-02-01 05:23] LABS: Calcium 7.6 mg/dL (7.8-10.44); Glucose 124 mg/dL (70-105)
[2020-02-01 05:25] LABS: Anion Gap 9 mmol/L (10-20); Carbon Dioxide 23 mmol/L (22-29)
[2020-02-01 05:27] LABS: Calc. Creatinine Clearance 235 mL/min (70-130); Estimated GFR-MDRD Greater than 90; Potassium 2.8 mmol/L (3.5-5.1)
[2020-02-01 05:28] LABS: BUN (Urea Nitrogen) 6 mg/dL (8.4-25.7)
[2020-02-01] MEDS ORDERED: Potassium Chloride 20 MEQ TAB PO SCH (06:15)
--- NOTE | 2020-02-01 07:38 | PRG ---
DATE OF SERVICE: 02/01/2020 SUBJECTIVE: Mr. Oliveros says his headache is better. He has had no lower extremity symptoms. Denies chest pain. OBJECTIVE: VITAL SIGNS: Blood pressure 126/82, heart rate 92, respiratory rate is 18, oximetry is 95%. LUNGS: Clear. HEART: Regular rhythm. ABDOMEN: Soft. IMAGING STUDIES: CT pulmonary angiogram showed no evidence of thromboembolic disease. IMPRESSION: Vasospasm after subarachnoid bleed, status post coiling, clinically stable at this time. Job ID: [id number]
[2020-02-01] MEDS: Pancrelipase DR 12000 1 CAP PO SCH ×3 (08:24→16:59)
[2020-02-01] MEDS: Sodium Chloride 1 GM TAB PO SCH ×3 (08:27→16:32)
[2020-02-01] MEDS: Potassium Chloride 20 MEQ TAB PO SCH ×2 (08:28→16:32)
[2020-02-01] MEDS: levETIRAcetam 500 MG TAB PO SCH ×2 (08:28→20:11)
--- NOTE | 2020-02-01 08:57 | PRG ---
DATE OF SERVICE: 02/01/2020 I saw Mr. Oliveros in the ICU room this morning. He was moved from the general stroke floor back to the ICU yesterday due to a drop in sodium and 2 episodes of neurological deficit over the weekend that could be related to vasospasm. Since admission to the ICU, Mr. Oliveros has felt better. He has been placed on supplemental sodium and he has had no neurological events in the last 24 hours. O Among the electronically recorded vital signs, the maximum temperature I see is 98.9 degrees Fahrenheit. His blood pressures have ranged between 122 and 154. Other vital signs have been stable. Mr. Oliveros is sitting up this morning on the side of the bed. Answers questions appropriately. He is not as sleepy as he was yesterday. He is moving all his extremities well. His speech is normal. His cognition is normal. The diplopia has completely resolved. This morning's sodium level was 145, potassium was low and has been replaced. His white blood cell count came down to 8.3, his hemoglobin is 14.4. I am happy with Mr. Oliveros's response to supplemental sodium. This has likely increased his intravascular volume slightly diluting his CBC, which is good in this setting. Thankfully, the hyponatremia and likely the vasospasm are responsive to this sodium supplementation. If another 24 hours goes by with no neurological deficit, we can move him back out of the ICU, but I will keep him on 1.5 normal saline on the floor and wean that off slowly. I will add salt tablet administration with meals and even continue that following discharge. He will remain on amlodipine for a full 3 weeks. (subarachnoid hemorrhage day #9, post coiling day #7). Job ID: [id number] [facility]
[2020-02-01] MEDS: Sodium Chloride 256 MEQ in Sterile Water Injection 936 ML IV SCH (12:15)
--- NOTE | 2020-02-01 12:17 | PDOC.HOSPP ---
- Subjective Encounter Date: 02/01/20 Encounter Time: 08:40 Subjective: awake, responds well to verbal stimuli no chest pain or sob or palp or visual symptoms is moving all extremities ate his breakfast, no nausea - Objective Vital Signs & Weight: Vital Signs (12 hours) Temp Pulse Resp BP BP Pulse Ox 02/01/20 08:00 98.5 F 98 16 147/93 H 147/93 H 98 02/01/20 04:00 98.1 F Weight Admit Weight 272 lb Weight 292 lb 5.327 oz Most Recent Monitor Data Heart Rate from ECG 92 NIBP 147/107 NIBP BP-Mean 120 Respiration from ECG 29 SpO2 96 I&O: 01/31/20 02/01/20 02/02/20 06:59 06:59 06:59 Intake Total 6290 240 Output Total 827 8696 700 Balance -827 3640 -460 Result Diagrams: 02/01/20 04:35 02/01/20 04:35 Hospitalist ROS - Medication Medications: Active Medications Generic Name Dose Route Start Last Admin Trade Name Freq PRN Reason Stop Dose Admin Acetaminophen 650 mg 01/24/20 19:48 01/29/20 10:44 Tylenol PO 650 mg Q4H PRN Administration Headache/Fever/Mild Pain (1-3) Hydrocodone Bitart/Acetaminophen 1 tab 01/24/20 19:48 02/01/20 08:27 [place] 7.5/325 PO 1 tab Q4H PRN Administration Moderate Pain (4-6) Hydrocodone Bitart/Acetaminophen 2 tab 01/24/20 19:48 02/01/20 03:04 [place] 7.5/325 PO 2 tab Q4H PRN Administration Severe Pain (7-10) Lipase/Protease/Amylase 6 cap 01/31/20 11:30 02/01/20 11:[address] [place] [id number] PO Not Given AC MYRNA Docusate Sodium 100 mg 01/24/20 19:48 01/29/20 20:58 Colace PO 100 mg BIDPRN PRN Administration Constipation Fentanyl 25 mcg 01/25/20 06:48 01/30/20 22:27 Sublimaze SLOW IVP 25 mcg Q2H PRN Administration Mild-Moderate Pain (1-5) Fentanyl 50 mcg 01/25/20 06:48 01/31/20 19:37 Sublimaze SLOW IVP 50 mcg Q2H PRN Administration Moderate to Severe Pain (6-10) Sodium Chloride 256 meq/ 1,000 mls @ 80 mls/hr 01/31/20 09:45 02/01/20 12:15 Sterile Water IV 1,000 mls INF MYRNA Administration Levetiracetam 500 mg 01/28/20 09:00 02/01/20 08:28 Keppra PO 500 mg BID MYRNA Administration Nimodipine 60 mg 01/24/20 21:00 02/01/20 12:11 Nimodipine PO 60 mg Q4HR MYRNA Administration Ondansetron HCl 4 mg 01/24/20 19:48 01/31/20 17:12 Zofran IVP 4 mg Q4H PRN Administration Nausea/Vomiting Pantoprazole Sodium 40 mg 01/28/20 09:00 02/01/20 08:28 Protonix PO 40 mg BID MYRNA Administration Potassium Chloride 20 meq 01/28/20 08:00 02/01/20 08:28 K-Dur PO 20 meq BID-WM MYRNA Administration Promethazine HCl 25 mg 01/24/20 19:48 01/31/20 19:37 Phenergan PO 25 mg Q4H PRN Administration Nausea/Vomiting Sodium Chloride 1 gm 01/31/20 17:00 02/01/20 11:49 Sodium Chloride PO 1 gm TID-WM MYRNA Administration - Exam General Appearance: awake alert Eye: PERRL, anicteric sclera ENT: no oropharyngeal lesions, moist mucosa Neck: supple, no JVD Heart: RRR, no murmur Respiratory: no wheezes, no rales Gastrointestinal: soft, non-tender, non-distended, normal bowel sounds Extremities: no cyanosis, no edema Neurological: cranial nerve grossly intact, no focal deficits Psychiatric: normal affect, A&O x 3 Hosp A/P (1) SAH (subarachnoid hemorrhage) Code(s): I60.9 - NONTRAUMATIC SUBARACHNOID HEMORRHAGE, UNSPECIFIED Status: Acute (2) HTN (hypertension) Code(s): I10 - ESSENTIAL (PRIMARY) HYPERTENSION Status: Chronic Qualifiers: Hypertension type: essential hypertension Qualified Code(s): I10 - Essential (primary) hypertension (3) Chest pain Code(s): R07.9 - CHEST PAIN, UNSPECIFIED Status: Resolved Qualifiers: Chest pain type: unspecified Qualified Code(s): R07.9 - Chest pain, unspecified (4) JJ (obstructive sleep apnea) Code(s): G47.33 - OBSTRUCTIVE SLEEP APNEA (ADULT) (PEDIATRIC) Status: Chronic (5) Obesity Code(s): E66.9 - OBESITY, UNSPECIFIED Status: Chronic Qualifiers: Obesity classification: adult class 2 (BMI 35 - 39.9) (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 OF SPHINCTER OF ODDI Status: Chronic (7) Dyslipidemia Code(s): E78.5 - HYPERLIPIDEMIA, UNSPECIFIED Status: Chronic - Plan is on keppra, nimodipine q4h, protonix bid is s/p endovascular coiling of left A[place] on 01/25/2020 by is on 1.5 NS and salt tablets tid, hypokalemia will be corrected cpap when sleeping oob to chair and mobilze if ok with nsx echo shows normal lv function, will need outpt stress test, has multiple risk factors for heart disease ekg x2 on chart were reviewed, no stemi changes, has poor R wave progression with nonspecific ST-T wave changes hemostable close monitoring in ICU for neurologic decompensation/vasospasm. will f/u
[2020-02-01 14:30] LABS: Sodium 135 mmol/L (136-145)
[2020-02-01] MEDS: Fentanyl 100 MCG/2 ML VIAL SLOW IVP PRN (22:14)
[2020-02-02] MEDS: HYDROcodone/Acetaminophen 7.5/325 mg Tablet PO PRN ×5 (00:18→22:17)
[2020-02-02] MEDS: niMODipine 30 MG CAP PO SCH ×6 (00:18→20:17)
[2020-02-02] MEDS: Sodium Chloride 256 MEQ in Sterile Water Injection 936 ML IV SCH ×2 (02:12→16:37)
[2020-02-02 04:47] LABS: #Basophils 0.1 thou/uL (0.0-0.2); #Eosinphils 0.2 thou/uL (0.0-0.7); #Lymphocytes 2.2 thou/uL (1.20-3.40); #Monocytes 0.8 thou/uL (0.11-0.59); #Neutrophils 6.3 thou/uL (1.40-6.50); %Basophils 0.6 % (0.0-1.0); %Eosinophils 2.3 % (0.0-10.0); %Lymphocytes 22.9 % (21.0-51.0); %Monocytes 7.9 % (0.0-10.0); %Neutrophils 66.2 % (42.0-75.0); Hemoglobin 15.9 g/dL (14.0-18.0); Mean Corpuscular HGB CONC 33.1 g/dL (32.0-36.0); Mean Corpuscular Hemoglobin 30.5 pg (27.0-31.0); Mean Corpuscular Volume 92.2 fL (78.0-98.0); Mean Platelet Volume 8.2 fL (7.4-10.4); Platelet Count 176 thou/uL (130-400); RBC Distribution Width 13.1 % (11.5-14.5); White Blood Cell (WBC) Count 9.5 thou/uL (4.8-10.8)
[2020-02-02 05:13] LABS: Anion Gap 13 mmol/L (10-20); BUN (Urea Nitrogen) 7 mg/dL (8.4-25.7); Calc. Creatinine Clearance 210 mL/min (70-130); Calcium 9.2 mg/dL (7.8-10.44); Carbon Dioxide 25 mmol/L (22-29); Chloride 104 mmol/L (98-107); Estimated GFR-MDRD Greater than 90; Glucose 106 mg/dL (70-105); Potassium 3.5 mmol/L (3.5-5.1); Sodium 138 mmol/L (136-145)
[2020-02-02] MEDS: Pancrelipase DR 12000 1 CAP PO SCH ×3 (07:56→17:03)
[2020-02-02] MEDS: Sodium Chloride 1 GM TAB PO SCH ×3 (08:02→17:02)
[2020-02-02] MEDS: levETIRAcetam 500 MG TAB PO SCH ×2 (08:03→20:17)
[2020-02-02] MEDS: Potassium Chloride 20 MEQ TAB PO SCH ×2 (08:03→16:58)
--- NOTE | 2020-02-02 13:07 | PDOC.HOSPP ---
- Subjective Encounter Date: 02/02/20 Encounter Time: 11:30 Subjective: feels good, no complaints now had some diplopia when he was out walking in the hallway yesterday - Objective Vital Signs & Weight: Vital Signs (12 hours) Temp Pulse Ox 02/02/20 12:00 98.0 F 02/02/20 08:00 98.3 F 98 02/02/20 07:49 100 02/02/20 03:00 98.6 F Weight Admit Weight 272 lb Weight 291 lb 7.218 oz Most Recent Monitor Data Heart Rate from ECG 113 NIBP 128/99 NIBP BP-Mean 108 Respiration from ECG 14 SpO2 100 I&O: 02/01/20 02/02/20 02/03/20 06:59 06:59 06:59 Intake Total 6290 4213 1200 Output Total 2650 2500 700 Balance 3640 1713 500 Result Diagrams: 02/02/20 03:50 02/02/20 03:50 Hospitalist ROS - Medication Medications: Active Medications Generic Name Dose Route Start Last Admin Trade Name Freq PRN Reason Stop Dose Admin Acetaminophen 650 mg 01/24/20 19:48 01/29/20 10:44 Tylenol PO 650 mg Q4H PRN Administration Headache/Fever/Mild Pain (1-3) Hydrocodone Bitart/Acetaminophen 1 tab 01/24/20 19:48 02/02/20 12:51 [place] 7.5/325 PO 1 tab Q4H PRN Administration Moderate Pain (4-6) Hydrocodone Bitart/Acetaminophen 2 tab 01/24/20 19:48 02/02/20 00:18 [place] 7.5/325 PO 2 tab Q4H PRN Administration Severe Pain (7-10) Lipase/Protease/Amylase 6 cap 01/31/20 11:30 02/02/20 11:[address] [place] [id number] PO 6 cap AC MYRNA Administration Docusate Sodium 100 mg 01/24/20 19:48 01/29/20 20:58 Colace PO 100 mg BIDPRN PRN Administration Constipation Fentanyl 25 mcg 01/25/20 06:48 01/30/20 22:27 Sublimaze SLOW IVP 25 mcg Q2H PRN Administration Mild-Moderate Pain (1-5) Fentanyl 50 mcg 01/25/20 06:48 02/01/20 22:14 Sublimaze SLOW IVP 50 mcg Q2H PRN Administration Moderate to Severe Pain (6-10) Sodium Chloride 256 meq/ 1,000 mls @ 80 mls/hr 01/31/20 09:45 02/02/20 02:12 Sterile Water IV 1,000 mls INF MYRNA Administration Levetiracetam 500 mg 01/28/20 09:00 02/02/20 08:03 Keppra PO 500 mg BID MYRNA Administration Nimodipine 60 mg 01/24/20 21:00 02/02/20 12:04 Nimodipine PO 60 mg Q4HR MYRNA Administration Ondansetron HCl 4 mg 01/24/20 19:48 01/31/20 17:12 Zofran IVP 4 mg Q4H PRN Administration Nausea/Vomiting Pantoprazole Sodium 40 mg 01/28/20 09:00 02/02/20 08:03 Protonix PO 40 mg BID MYRNA Administration Potassium Chloride 20 meq 01/28/20 08:00 02/02/20 08:03 K-Dur PO 20 meq BID-WM MYRNA Administration Promethazine HCl 25 mg 01/24/20 19:48 01/31/20 19:37 Phenergan PO 25 mg Q4H PRN Administration Nausea/Vomiting Sodium Chloride 2 gm 02/02/20 06:58 02/02/20 11:59 Sodium Chloride PO 2 gm TID-WM MYRNA Administration - Exam General Appearance: awake alert Eye: PERRL, anicteric sclera ENT: no oropharyngeal lesions, moist mucosa Neck: supple, no JVD Heart: RRR, no murmur Respiratory: no wheezes, no rales Gastrointestinal: soft, non-tender, non-distended, normal bowel sounds Extremities: no cyanosis, no edema Neurological: cranial nerve grossly intact, no focal deficits Hosp A/P (1) SAH (subarachnoid hemorrhage) Code(s): I60.9 - NONTRAUMATIC SUBARACHNOID HEMORRHAGE, UNSPECIFIED Status: Acute (2) HTN (hypertension) Code(s): I10 - ESSENTIAL (PRIMARY) HYPERTENSION Status: Chronic Qualifiers: Hypertension type: essential hypertension Qualified Code(s): I10 - Essential (primary) hypertension (3) Chest pain Code(s): R07.9 - CHEST PAIN, UNSPECIFIED Status: Resolved Qualifiers: Chest pain type: unspecified Qualified Code(s): R07.9 - Chest pain, unspecified (4) JJ (obstructive sleep apnea) Code(s): G47.33 - OBSTRUCTIVE SLEEP APNEA (ADULT) (PEDIATRIC) Status: Chronic (5) Obesity Code(s): E66.9 - OBESITY, UNSPECIFIED Status: Chronic Qualifiers: Obesity classification: adult class 2 (BMI 35 - 39.9) (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 OF SPHINCTER OF ODDI Status: Chronic (7) Dyslipidemia Code(s): E78.5 - HYPERLIPIDEMIA, UNSPECIFIED Status: Chronic - Plan is on keppra, nimodipine q4h, protonix bid is s/p endovascular coiling of left A[place] on 01/25/2020 by is on 1.5 NS and salt tablets, electrolytes stable cpap when sleeping oob to chair and mobilze if ok with nsx echo shows normal lv function, will need outpt stress test, has multiple risk factors for heart disease ekg x2 on chart were reviewed, no stemi changes, has poor R wave progression with nonspecific ST-T wave changes hemostable close monitoring in ICU for neurologic decompensation/vasospasm.
--- NOTE | 2020-02-02 13:47 | PRG ---
DATE OF SERVICE: 02/02/2020 I saw Mr. Oliveros early this morning on rounds. He reported to me two episodes of diplopia yesterday. The 1st was when he was up walking with physical therapy. The 2nd happened later in the evening. Both of them are quite transient and not as severe as what occurred on Friday over the last weekend. He feels fine this morning and with no complaints currently. Overnight, the electronically recorded vital signs show that his maximum temperature was 98.9 degrees Fahrenheit. Blood pressures have ranged between 123 and 155. On examination, Mr. Oliveros was wide awake when I saw him. He is alert. He is answering questions appropriately. His cognitive function was intact. He had no diplopia. His extraocular muscles moved his eyes in all directions, primary gaze without nystagmus. Alternating rapid motions are performed rapidly and smoothly on both sides. There is no pronator drift nor any other lateralizing motor or sensory deficits. This morning, sodium was 138, this morning's white blood cell count 9.5 and hemoglobin 15.9. The plan was to move Mr. Oliveros to floor care today. However, two episodes of some transient diplopia that may hesitant to do so. I would like to watch him for another day in the ICU so long as we have room to do so. We will make sure that he has an increase in his sodium intake for 3 weeks following his aneurysmal subarachnoid hemorrhage. We will make sure he stays on 1.5 normal saline for now. When he gets to floor care so long as he remains neurologically asymptomatic, we will wean it slowly until he is off supplemental IV sodium. We will reassess in the morning (subarachnoid hemorrhage day 10, post coiling day 8). Job ID: [id number] [facility]
[2020-02-02 14:35] LABS: Sodium 136 mmol/L (136-145)
--- NOTE | 2020-02-02 16:24 | PRG ---
DATE OF SERVICE: 02/02/2020 SUBJECTIVE: Jay Oliveros's big complaint was diplopia today. He had episodes over the weekend that were brief, but this has been more persistent. If he closes his left eye, his diplopia resolves. He has a deviation of his left eye medially. OBJECTIVE: LUNGS: Clear. HEART: Regular rate and rhythm. ABDOMEN: Soft. LABORATORY DATA: White count is 9.5, hemoglobin 15.9, and platelets 176. Sodium 138, potassium 3.5, chloride 104, bicarb 25, BUN 7, and creatinine 0.78. IMPRESSION: ? ongoing cerebral vasospasm after subarachnoid bleed. We will follow with Neurosurgery. Job ID: [id number]
[2020-02-02] MEDS: Ondansetron PF 4 MG/2 ML Vial IVP PRN (16:57)
[2020-02-03] MEDS: niMODipine 30 MG CAP PO SCH ×6 (01:28→20:49)
[2020-02-03] MEDS: HYDROcodone/Acetaminophen 7.5/325 mg Tablet PO PRN ×4 (02:16→22:29)
[2020-02-03] MEDS: Sodium Chloride 256 MEQ in Sterile Water Injection 936 ML IV SCH ×2 (02:17→14:28)
[2020-02-03 04:36] LABS: #Basophils 0.1 thou/uL (0.0-0.2); #Eosinphils 0.2 thou/uL (0.0-0.7); #Lymphocytes 1.9 thou/uL (1.20-3.40); #Monocytes 0.8 thou/uL (0.11-0.59); #Neutrophils 3.7 thou/uL (1.40-6.50); %Basophils 1.2 % (0.0-1.0); %Eosinophils 2.8 % (0.0-10.0); %Lymphocytes 28.5 % (21.0-51.0); %Monocytes 11.7 % (0.0-10.0); %Neutrophils 55.8 % (42.0-75.0); Hemoglobin 15.9 g/dL (14.0-18.0); Mean Corpuscular HGB CONC 33.6 g/dL (32.0-36.0); Mean Corpuscular Hemoglobin 31.1 pg (27.0-31.0); Mean Corpuscular Volume 92.4 fL (78.0-98.0); Mean Platelet Volume 7.8 fL (7.4-10.4); Platelet Count 166 thou/uL (130-400); RBC Distribution Width 12.9 % (11.5-14.5); Red Blood Cell (RBC) Count 5.12 mill/uL (4.70-6.10); White Blood Cell (WBC) Count 6.6 thou/uL (4.8-10.8)
[2020-02-03 04:57] LABS: Anion Gap 12 mmol/L (10-20); BUN (Urea Nitrogen) 5 mg/dL (8.4-25.7); Calc. Creatinine Clearance 204 mL/min (70-130); Calcium 9.3 mg/dL (7.8-10.44); Carbon Dioxide 27 mmol/L (22-29); Chloride 104 mmol/L (98-107); Estimated GFR-MDRD Greater than 90; Glucose 111 mg/dL (70-105); Potassium 3.6 mmol/L (3.5-5.1); Sodium 139 mmol/L (136-145)
[2020-02-03] MEDS: Pancrelipase DR 12000 1 CAP PO SCH ×3 (08:11→17:22)
[2020-02-03] MEDS: levETIRAcetam 500 MG TAB PO SCH (08:13)
[2020-02-03] MEDS: Sodium Chloride 1 GM TAB PO SCH ×3 (08:13→17:20)
[2020-02-03] MEDS: Potassium Chloride 20 MEQ TAB PO SCH ×2 (08:18→17:20)
[2020-02-03] MEDS: Acetaminophen 325 MG TAB PO PRN (08:35)
--- NOTE | 2020-02-03 09:10 | PRG ---
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 Mr. Oliveros had a relatively uneventful day yesterday. He keeps feeling better every day and the headache is lessening. He had some double vision that seemed to go away. Rested comfortably overnight. He has no complaints for me this morning. The highest recorded temperature among the electronically noted vital signs is 98.6 degrees Fahrenheit. Blood pressures have ranged between the level of 112 and a high of 157. Our strict intake and output measurements suggests that he has had a positive fluid balance each of the last three days. Mr. Oliveros is awake this morning. He answers questions appropriately. He is conversational. There is a bit of weakness in the 6th nerve bilaterally or a small internuclear ophthalmoparesis. This has been marginally present since his admission and I think he is more alert and noticing the resulting diplopia at the extremes of lateral vision. Other cranial nerves are all intact. He is moving all his extremities quite well. Alternating rapid motions are performed rapidly and smoothly. There is no neglect or lateralizing motor or sensory deficit that I can appreciate. White blood cell count continues to head down and it is 6.6 this morning. His lymphocyte count is normal. Sodium is 139. I will get a CT scan today and make sure that he had not developed any significant hydrocephalus. If the CT looks stable, we will move Mr. Oliveros to floor care. He expressed to me a very strong preference enough to return to the stroke unit. He has been there twice and has not enjoyed his experiences there or felt safe. If we move him to general surgical floor, we will have to ensure that his nurses continuing the neurological examinations on a scheduled basis during his stay. We are going to continue the 1.5 normal saline at 100 mL an hour for the next 24 hours. We will continue with the salt supplementation as well. We will continue to mobilize. Job ID: [id number]
[2020-02-03] MEDS ORDERED: levETIRAcetam 500 MG TAB PO SCH ×2 (09:45→21:00)
--- NOTE | 2020-02-03 11:09 | PRG ---
DATE OF SERVICE: 02/03/2020 SUBJECTIVE: Gregory Oliveros is in no distress. He still has some mild diplopia this morning, but he says he is much better than yesterday. He still has a little bit of a left esotropia. OBJECTIVE: VITAL SIGNS: His blood pressure diastolic is a little high today. Heart rate is in 80s, respiratory rates in the teens. LUNGS: Unchanged. HEART: Unchanged. ABDOMEN: Unchanged. DIAGNOSTIC STUDIES: Head CT was done this morning. Report is pending. IMPRESSION: 1. Vasospasm after a subarachnoid bleed, status post coiling. 2. Given his waxing and waning symptoms, I think it would be reasonable to keep him in the ICU for now. We do not have a bed shortage, so I think we should just go ahead and keep him in the unit for another day or two. Critical care time 30 min. Job ID: [id number] MTDD
--- NOTE | 2020-02-03 11:57 | CT ---
CT OF THE BRAIN WITHOUT CONTRAST: COMPARISON: 01/26/2020, 01/25/2020. HISTORY: Double vision. Followup of coiling of aneurysm and subarachnoid hemorrhage. TECHNIQUE: Multiple contiguous axial images were obtained in a CT of the brain without contrast. FINDINGS: A coil is seen to the left of the basilar artery. The previously seen subarachnoid hemorrhage has com pletely resolved. No hydrocephalus is seen. There is no evidence of extraaxial fluid collection. The calvarium and overlying soft tissues are unremarkable. The visualized paranasal sinuses and mast oid air cells are well aerated. IMPRESSION: Resolution of subarachnoid hemorrhage status post aneurysm coiling. POS: MOHAN
--- NOTE | 2020-02-03 12:55 | PDOC.HOSPP ---
- Subjective Encounter Date: 02/03/20 Encounter Time: 07:45 Subjective: no new complaints feels better - Objective Vital Signs & Weight: Vital Signs (12 hours) Temp Pulse Ox 02/03/20 12:00 98.2 F 02/03/20 07:48 100 02/03/20 07:27 97 02/03/20 07:00 98.1 F 02/03/20 04:00 97.9 F Weight Admit Weight 272 lb Weight 283 lb 11.759 oz Most Recent Monitor Data Heart Rate from ECG 93 NIBP 136/102 NIBP BP-Mean 113 Respiration from ECG 17 SpO2 100 I&O: 02/02/20 02/03/20 02/04/20 06:59 06:59 06:59 Intake Total 4213 6266 600 Output Total 2500 3450 1110 Balance 1713 2816 -510 Result Diagrams: 02/03/20 04:15 02/03/20 04:15 Hospitalist ROS - Medication Medications: Active Medications Generic Name Dose Route Start Last Admin Trade Name Freq PRN Reason Stop Dose Admin Acetaminophen 650 mg 01/24/20 19:48 02/03/20 08:35 Tylenol PO 650 mg Q4H PRN Administration Headache/Fever/Mild Pain (1-3) Hydrocodone Bitart/Acetaminophen 1 tab 01/24/20 19:48 02/02/20 12:51 [place] 7.5/325 PO 1 tab Q4H PRN Administration Moderate Pain (4-6) Hydrocodone Bitart/Acetaminophen 2 tab 01/24/20 19:48 02/03/20 02:16 [place] 7.5/325 PO 2 tab Q4H PRN Administration Severe Pain (7-10) Lipase/Protease/Amylase 6 cap 01/31/20 11:30 02/03/20 11:[address] [place] [address] [id number] PO 6 cap AC MYRNA Administration Docusate Sodium 100 mg 01/24/20 19:48 01/29/20 20:58 Colace PO 100 mg BIDPRN PRN Administration Constipation Fentanyl 25 mcg 01/25/20 06:48 01/30/20 22:27 Sublimaze SLOW IVP 25 mcg Q2H PRN Administration Mild-Moderate Pain (1-5) Fentanyl 50 mcg 01/25/20 06:48 02/01/20 22:14 Sublimaze SLOW IVP 50 mcg Q2H PRN Administration Moderate to Severe Pain (6-10) Sodium Chloride 256 meq/ 1,000 mls @ 100 mls/hr 02/02/20 17:00 02/03/20 02:17 Sterile Water IV 1,000 mls INF MYRNA Administration Nimodipine 60 mg 01/24/20 21:00 02/03/20 08:14 Nimodipine PO 60 mg Q4HR MYRNA Administration Ondansetron HCl 4 mg 01/24/20 19:48 02/02/20 16:57 Zofran IVP 4 mg Q4H PRN Administration Nausea/Vomiting Pantoprazole Sodium 40 mg 01/28/20 09:00 02/03/20 08:13 Protonix PO 40 mg BID MYRNA Administration Potassium Chloride 20 meq 01/28/20 08:00 02/03/20 08:18 K-Dur PO 20 meq BID-WM MYRNA Administration Promethazine HCl 25 mg 01/24/20 19:48 01/31/20 19:37 Phenergan PO 25 mg Q4H PRN Administration Nausea/Vomiting Sodium Chloride 2 gm 02/02/20 06:58 02/03/20 11:24 Sodium Chloride PO 2 gm TID-WM MYRNA Administration - Exam General Appearance: awake alert Eye: PERRL, anicteric sclera ENT: no oropharyngeal lesions, dry oral mucosa Neck: supple, no JVD Heart: RRR, no murmur Respiratory: no wheezes, no rales Gastrointestinal: soft, non-tender, non-distended, normal bowel sounds Extremities: no cyanosis, no edema Neurological: cranial nerve grossly intact, no focal deficits Psychiatric: normal affect, A&O x 3 Hosp A/P (1) SAH (subarachnoid hemorrhage) Code(s): I60.9 - NONTRAUMATIC SUBARACHNOID HEMORRHAGE, UNSPECIFIED Status: Acute (2) HTN (hypertension) Code(s): I10 - ESSENTIAL (PRIMARY) HYPERTENSION Status: Chronic Qualifiers: Hypertension type: essential hypertension Qualified Code(s): I10 - Essential (primary) hypertension (3) Chest pain Code(s): R07.9 - CHEST PAIN, UNSPECIFIED Status: Resolved Qualifiers: Chest pain type: unspecified Qualified Code(s): R07.9 - Chest pain, unspecified (4) JJ (obstructive sleep apnea) Code(s): G47.33 - OBSTRUCTIVE SLEEP APNEA (ADULT) (PEDIATRIC) Status: Chronic (5) Obesity Code(s): E66.9 - OBESITY, UNSPECIFIED Status: Chronic Qualifiers: Obesity classification: adult class 2 (BMI 35 - 39.9) (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 Repeat CT brain results from 2019 reviewed. is s/p endovascular coiling of left AICA on 01/25/2020 by is on 1.5 NS and salt tablets, electrolytes stable cpap when sleeping oob to chair and mobilze if ok with nsx echo shows normal lv function, will need outpt stress test, has multiple risk factors for heart disease ekg x2 on chart were reviewed, no stemi changes, has poor R wave progression with nonspecific ST-T wave changes hemostable dc plan per nsx advice
[2020-02-03 14:43] LABS: Sodium 137 mmol/L (136-145)
[2020-02-03] MEDS: levETIRAcetam 500 mg/5 ml Oral Solution PO SCH (21:00)
[2020-02-04] MEDS: niMODipine 30 MG CAP PO SCH ×6 (00:41→20:19)
[2020-02-04] MEDS: Sodium Chloride 256 MEQ in Sterile Water Injection 936 ML IV SCH ×3 (01:41→14:58)
[2020-02-04] MEDS: HYDROcodone/Acetaminophen 7.5/325 mg Tablet PO PRN ×3 (02:37→22:27)
[2020-02-04 04:40] LABS: #Basophils 0.1 thou/uL (0.0-0.2); #Eosinphils 0.2 thou/uL (0.0-0.7); #Monocytes 0.7 thou/uL (0.11-0.59); #Neutrophils 4.2 thou/uL (1.40-6.50); %Basophils 0.8 % (0.0-1.0); %Eosinophils 2.3 % (0.0-10.0); %Lymphocytes 28.1 % (21.0-51.0); %Monocytes 9.4 % (0.0-10.0); %Neutrophils 59.4 % (42.0-75.0); Mean Corpuscular HGB CONC 32.7 g/dL (32.0-36.0); Mean Corpuscular Hemoglobin 30.3 pg (27.0-31.0); Mean Corpuscular Volume 92.7 fL (78.0-98.0); Mean Platelet Volume 7.8 fL (7.4-10.4); Platelet Count 154 thou/uL (130-400); RBC Distribution Width 12.9 % (11.5-14.5); Red Blood Cell (RBC) Count 4.95 mill/uL (4.70-6.10)
[2020-02-04 05:00] LABS: Anion Gap 11 mmol/L (10-20); BUN (Urea Nitrogen) 6 mg/dL (8.4-25.7); Calc. Creatinine Clearance 204 mL/min (70-130); Calcium 9.1 mg/dL (7.8-10.44); Carbon Dioxide 27 mmol/L (22-29); Chloride 104 mmol/L (98-107); Estimated GFR-MDRD Greater than 90; Glucose 99 mg/dL (70-105); Potassium 3.7 mmol/L (3.5-5.1); Sodium 138 mmol/L (136-145)
--- NOTE | 2020-02-04 06:51 | PRG ---
DATE OF SERVICE: I saw Mr. Oliveros in the ICU this morning. He tells me his headache was less yesterday than previous days. He was reassured by the CT results that were given to him and he had less double vision. He is feeling well this morning. Among the electronically recorded vital signs, the maximum temperature I see is 98.3 degrees. Blood pressures have been between 116 and 154. On neurological examination, he has had an MIGUEL ÁNGEL. He did have some weakness of the VIth nerve on both sides, but that seems to be resolving. He has improved eversion of both eyes. I think the extraocular muscles are moving in the eyes in a conjugate fashion today, better than they were yesterday. Mr. Oliveros's cognitive function has never been an issue. He is alert. He is answering questions appropriately. His memory is good. His speech is fluent. Alternating rapid motions are performed rapidly and smoothly on both sides. There is no pronator drift or other lateralizing motor or sensory deficits. Today, sodium is 138. White blood cell count is 7.0 and hemoglobin of 15.0. CT examination of the brain yesterday revealed resolution of the subarachnoid blood and no hydrocephalus. It looks like a normal scan. Mr. Oliveros is doing well. His sodium is staying in the high 130s. I am going to taper off the 1.5 normal saline slowly. We will go down to 80 mL an hour, but he needs to remain on his sodium tablet supplementation with meals. We will continue to check sodium twice a day with a metabolic panel in the morning and the sodium level in the afternoon. (subarachnoid hemorrhage day 12, post coiling day 10) Job ID: [id number] [facility]
[2020-02-04] MEDS: Pancrelipase DR 12000 1 CAP PO SCH ×3 (07:33→17:32)
[2020-02-04] MEDS: Sodium Chloride 1 GM TAB PO SCH ×3 (08:01→17:32)
[2020-02-04] MEDS: Potassium Chloride 20 MEQ TAB PO SCH ×2 (08:01→17:32)
[2020-02-04] MEDS: levETIRAcetam 500 mg/5 ml Oral Solution PO SCH ×2 (08:05→20:20)
--- NOTE | 2020-02-04 12:08 | PDOC.HOSPP ---
- Subjective Encounter Date: 02/04/20 Encounter Time: 09:30 Subjective: is sitting and eating breakfast no new complaints - Objective Vital Signs & Weight: Vital Signs (12 hours) Temp Pulse Ox 02/04/20 08:00 95 02/04/20 07:00 98.1 F 02/04/20 04:00 98 F Weight Admit Weight 272 lb Weight 283 lb 4.704 oz Most Recent Monitor Data Heart Rate from ECG 93 NIBP 147/107 NIBP BP-Mean 120 Respiration from ECG 20 SpO2 94 I&O: 02/03/20 02/04/20 02/05/20 06:59 06:59 06:59 Intake Total 6266 3906 500 Output Total 3450 3875 250 Balance 2816 31 250 Result Diagrams: 02/04/20 04:15 02/04/20 04:15 Hospitalist ROS - Medication Medications: Active Medications Generic Name Dose Route Start Last Admin Trade Name Freq PRN Reason Stop Dose Admin Acetaminophen 650 mg 01/24/20 19:48 02/03/20 08:35 Tylenol PO 650 mg Q4H PRN Administration Headache/Fever/Mild Pain (1-3) Hydrocodone Bitart/Acetaminophen 1 tab 01/24/20 19:48 02/02/20 12:51 [place] 7.5/325 PO 1 tab Q4H PRN Administration Moderate Pain (4-6) Hydrocodone Bitart/Acetaminophen 2 tab 01/24/20 19:48 02/04/20 02:37 [place] 7.5/325 PO 2 tab Q4H PRN Administration Severe Pain (7-10) Lipase/Protease/Amylase 6 cap 01/31/20 11:30 02/04/20 07:[address] [place] [id number] PO 6 cap AC MYRNA Administration Docusate Sodium 100 mg 01/24/20 19:48 01/29/20 20:58 Colace PO 100 mg BIDPRN PRN Administration Constipation Fentanyl 25 mcg 01/25/20 06:48 01/30/20 22:27 Sublimaze SLOW IVP 25 mcg Q2H PRN Administration Mild-Moderate Pain (1-5) Fentanyl 50 mcg 01/25/20 06:48 02/01/20 22:14 Sublimaze SLOW IVP 50 mcg Q2H PRN Administration Moderate to Severe Pain (6-10) Sodium Chloride 256 meq/ 1,000 mls @ 80 mls/hr 02/04/20 06:13 02/04/20 07:57 Sterile Water IV Not Given .[id number] MYRNA Levetiracetam 250 mg 02/03/20 21:00 02/04/20 08:05 Keppra Oral Solution PO 250 mg BID MYRNA Administration Nimodipine 60 mg 01/24/20 21:00 02/04/20 08:01 Nimodipine PO 60 mg Q4HR MYRNA Administration Ondansetron HCl 4 mg 01/24/20 19:48 02/02/20 16:57 Zofran IVP 4 mg Q4H PRN Administration Nausea/Vomiting Pantoprazole Sodium 40 mg 01/28/20 09:00 02/04/20 08:01 Protonix PO 40 mg BID MYRNA Administration Potassium Chloride 20 meq 01/28/20 08:00 02/04/20 08:01 K-Dur PO 20 meq BID-WM MYRNA Administration Promethazine HCl 25 mg 01/24/20 19:48 01/31/20 19:37 Phenergan PO 25 mg Q4H PRN Administration Nausea/Vomiting Sodium Chloride 2 gm 02/02/20 06:58 02/04/20 08:01 Sodium Chloride PO 2 gm TID-WM MYRNA Administration - Exam General Appearance: awake alert Eye: PERRL, anicteric sclera ENT: no oropharyngeal lesions, moist mucosa Neck: supple, no JVD Heart: RRR, no murmur Respiratory: no wheezes, no rales Gastrointestinal: soft, non-tender, non-distended, normal bowel sounds Extremities: no cyanosis, no edema Neurological: cranial nerve grossly intact, no focal deficits Psychiatric: A&O x 3 Hosp A/P (1) SAH (subarachnoid hemorrhage) Code(s): I60.9 - NONTRAUMATIC SUBARACHNOID HEMORRHAGE, UNSPECIFIED Status: Acute (2) HTN (hypertension) Code(s): I10 - ESSENTIAL (PRIMARY) HYPERTENSION Status: Chronic Qualifiers: Hypertension type: essential hypertension Qualified Code(s): I10 - Essential (primary) hypertension (3) Chest pain Code(s): R07.9 - CHEST PAIN, UNSPECIFIED Status: Resolved Qualifiers: Chest pain type: unspecified Qualified Code(s): R07.9 - Chest pain, unspecified (4) JJ (obstructive sleep apnea) Code(s): G47.33 - OBSTRUCTIVE SLEEP APNEA (ADULT) (PEDIATRIC) Status: Chronic (5) Obesity Code(s): E66.9 - OBESITY, UNSPECIFIED Status: Chronic Qualifiers: Obesity classification: adult class 2 (BMI 35 - 39.9) (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 is s/p endovascular coiling of left AICA on 01/25/2020 by is on 1.5 NS and salt tablets, electrolytes stable cpap when sleeping oob to chair and mobilze if ok with nsx echo shows normal lv function, will need outpt stress test, has multiple risk factors for heart disease ekg x2 on chart were reviewed, no stemi changes, has poor R wave progression with nonspecific ST-T wave changes hemostable dc plan per nsx advice
[2020-02-04 14:56] LABS: Sodium 136 mmol/L (136-145)
--- NOTE | 2020-02-04 17:29 | PRG ---
DATE OF SERVICE: 02/04/2020 SUBJECTIVE: Jay Oliveros did well overnight. He denies having diplopia. OBJECTIVE: GENERAL: He is afebrile. Heart rate is 98, respiratory rate 16, oximetry is 99, and blood pressure 131/87. He was exercising with physical therapy when I saw him. LUNGS: Unchanged. HEART: Unchanged. ABDOMEN: Unchanged. IMPRESSION: Vasospasm after subarachnoid bleed, clinically improving. He is stable to move out of Critical Care in my opinion. He would prefer to go to the 3rd or 4th floor. Job ID: [id number]
[2020-02-05] MEDS: niMODipine 30 MG CAP PO SCH ×6 (00:43→21:03)
[2020-02-05] MEDS: Sodium Chloride 256 MEQ in Sterile Water Injection 936 ML IV SCH ×3 (02:54→14:57)
[2020-02-05 05:21] LABS: #Eosinphils 0.1 thou/uL (0.0-0.7); #Lymphocytes 2.2 thou/uL (1.20-3.40); #Monocytes 0.8 thou/uL (0.11-0.59); #Neutrophils 4.2 thou/uL (1.40-6.50); %Basophils 0.5 % (0.0-1.0); %Eosinophils 1.9 % (0.0-10.0); %Lymphocytes 29.7 % (21.0-51.0); %Neutrophils 56.9 % (42.0-75.0); Hemoglobin 15.7 g/dL (14.0-18.0); Mean Corpuscular HGB CONC 33.5 g/dL (32.0-36.0); Mean Corpuscular Hemoglobin 30.8 pg (27.0-31.0); Mean Corpuscular Volume 91.9 fL (78.0-98.0); Mean Platelet Volume 7.8 fL (7.4-10.4); Platelet Count 157 thou/uL (130-400); RBC Distribution Width 12.9 % (11.5-14.5); Red Blood Cell (RBC) Count 5.09 mill/uL (4.70-6.10); White Blood Cell (WBC) Count 7.5 thou/uL (4.8-10.8)
[2020-02-05 05:40] LABS: Anion Gap 13 mmol/L (10-20); BUN (Urea Nitrogen) 7 mg/dL (8.4-25.7); Calc. Creatinine Clearance 227 mL/min (70-130); Calcium 9.6 mg/dL (7.8-10.44); Carbon Dioxide 24 mmol/L (22-29); Chloride 104 mmol/L (98-107); Estimated GFR-MDRD Greater than 90; Glucose 104 mg/dL (70-105); Potassium 3.7 mmol/L (3.5-5.1); Sodium 137 mmol/L (136-145)
[2020-02-05] MEDS: Sodium Chloride 1 GM TAB PO SCH ×3 (08:00→16:49)
[2020-02-05] MEDS: Pancrelipase DR 12000 1 CAP PO SCH ×3 (08:01→16:49)
[2020-02-05] MEDS: levETIRAcetam 500 mg/5 ml Oral Solution PO SCH ×2 (08:01→21:04)
[2020-02-05] MEDS: Potassium Chloride 20 MEQ TAB PO SCH ×2 (08:01→16:49)
--- NOTE | 2020-02-05 10:34 | PRG ---
DATE OF SERVICE: 02/05/2020 TIME: 07:40. Mr. Oliveros is on the 12th day of his hospital stay for ruptured cerebral aneurysm and is status post coiling [address] Fair. This morning, he is on a medical-surgical floor and appears to be doing quite well. He denies any significant complaints at present. Vision is essentially normalized. Testing the extraocular movements, there is really no apparent weakness as was reported by Dr. Gibbons in cranial nerve 6 on either side. No obvious lateralizing neurologic symptoms either on examination. His sodium this morning is 137. No other apparent lab values are noted. Systolic pressures have been in the 130s to 150s overnight. He is on the walking program and has tolerated this well. Currently, he is still on 80 mL an hour of hypertonic saline and 1.5 normal saline. We will reduce this to 60 and recheck the BMP in the morning. The patient is hopeful to go home tomorrow. We will discuss with Dr. Fair for further disposition plans tomorrow. Job ID: [id number]
--- NOTE | 2020-02-05 11:51 | PDOC.HOSPP ---
- Subjective Encounter Date: 02/05/20 Encounter Time: 11:00 Subjective: Patient seen and examined for med mngt. Headache improving. No new focal deficits. No new complaints. No overnight events - Objective Vital Signs & Weight: Vital Signs (12 hours) Temp Pulse Resp BP Pulse Ox 02/05/20 11:32 98.1 F 70 16 128/98 H 95 02/05/20 08:00 97 02/05/20 07:25 98.1 F 80 14 147/103 H 97 02/05/20 03:03 98 F 82 16 135/89 95 Weight Admit Weight 272 lb Weight 283 lb 4.704 oz Most Recent Monitor Data Heart Rate from ECG 92 NIBP 147/95 NIBP BP-Mean 112 Respiration from ECG 16 SpO2 94 I&O: 02/04/20 02/05/20 02/06/20 06:59 06:59 06:59 Intake Total 3906 1678 Output Total 3875 850 Balance 31 828 Result Diagrams: 02/05/20 05:03 02/05/20 05:03 Radiology Reviewed by me: Yes (CT brain - reviewed) Hospitalist ROS - Review of Systems Respiratory: denies: cough, dry, shortness of breath, hemoptysis, SOB with excertion, pleuritic pain, sputum, wheezing, other Cardiovascular: denies: chest pain, palpitations, orthopnea, paroxysmal noc. dyspnea, edema, light headedness, other - Medication Medications: Active Medications Generic Name Dose Route Start Last Admin Trade Name Freq PRN Reason Stop Dose Admin Acetaminophen 650 mg 01/24/20 19:48 02/03/20 08:35 Tylenol PO 650 mg Q4H PRN Administration Headache/Fever/Mild Pain (1-3) Hydrocodone Bitart/Acetaminophen 1 tab 01/24/20 19:48 02/02/20 12:51 [place] 7.5/325 PO 1 tab Q4H PRN Administration Moderate Pain (4-6) Hydrocodone Bitart/Acetaminophen 2 tab 01/24/20 19:48 02/04/20 22:27 [place] 7.5/325 PO 2 tab Q4H PRN Administration Severe Pain (7-10) Lipase/Protease/Amylase 6 cap 01/31/20 11:30 02/05/20 08:[address] [place] [address] [id number] PO 6 cap AC MYRNA Administration Docusate Sodium 100 mg 01/24/20 19:48 01/29/20 20:58 Colace PO 100 mg BIDPRN PRN Administration Constipation Fentanyl 25 mcg 01/25/20 06:48 01/30/20 22:27 Sublimaze SLOW IVP 25 mcg Q2H PRN Administration Mild-Moderate Pain (1-5) Fentanyl 50 mcg 01/25/20 06:48 02/01/20 22:14 Sublimaze SLOW IVP 50 mcg Q2H PRN Administration Moderate to Severe Pain (6-10) Levetiracetam 250 mg 02/03/20 21:00 02/05/20 08:01 Keppra Oral Solution PO 250 mg BID MYRNA Administration Nimodipine 60 mg 01/24/20 21:00 02/05/20 08:01 Nimodipine PO 60 mg Q4HR MYRNA Administration Ondansetron HCl 4 mg 01/24/20 19:48 02/02/20 16:57 Zofran IVP 4 mg Q4H PRN Administration Nausea/Vomiting Pantoprazole Sodium 40 mg 01/28/20 09:00 02/05/20 08:01 Protonix PO 40 mg BID MYRNA Administration Potassium Chloride 20 meq 01/28/20 08:00 02/05/20 08:01 K-Dur PO 20 meq BID-WM MYRNA Administration Promethazine HCl 25 mg 01/24/20 19:48 01/31/20 19:37 Phenergan PO 25 mg Q4H PRN Administration Nausea/Vomiting Sodium Chloride 2 gm 02/02/20 06:58 02/05/20 08:00 Sodium Chloride PO 2 gm TID-WM MYRNA Administration - Exam General Appearance: NAD Neck: supple, no JVD Heart: RRR, no gallops Respiratory: no wheezes, no rales Gastrointestinal: soft, non-tender, no guarding, no rigidity Extremities: no cyanosis Neurological: no new deficit Hosp A/P - Plan DVT proph w/SCDs SAH JJ - on CPAP HTN Obesity BMI 37.4 Hyponatremia Hypokalemia - replaced PLAN: On hypertonic saline with salt tab On Nimodipine Cont other meds as above BMP in AM
--- NOTE | 2020-02-05 12:30 | PRG ---
DATE OF SERVICE: 02/05/2020 SUBJECTIVE: Jay Oliveros has no complaints today. He has no diplopia. OBJECTIVE: HEENT: On exam, he has no dysconjugate gaze. VITAL SIGNS: He is afebrile, heart rate 70, respiratory rate is 16, oximetry is 95% on room air, blood pressure 128/98. LUNGS: Unchanged. HEART: Unchanged. ABDOMEN: Unchanged. IMPRESSION: Subarachnoid bleed with post coiling vasospasm, that appears to be clinically resolving. LABORATORY DATA: White count 7.5, hemoglobin 15.7, platelets 157. Sodium is 137, potassium 3.7, chloride 104, bicarb 24, BUN 7, creatinine 0.7. PLAN: Overall, he is stable. We will continue to follow while he is in the hospital. Job ID: [id number]
[2020-02-05] MEDS: HYDROcodone/Acetaminophen 7.5/325 mg Tablet PO PRN ×2 (14:46→22:46)
[2020-02-06] MEDS: niMODipine 30 MG CAP PO SCH ×5 (00:34→17:07)
[2020-02-06] MEDS: HYDROcodone/Acetaminophen 7.5/325 mg Tablet PO PRN (02:27)
[2020-02-06 05:34] LABS: #Basophils 0.1 thou/uL (0.0-0.2); #Eosinphils 0.1 thou/uL (0.0-0.7); #Lymphocytes 2.3 thou/uL (1.20-3.40); #Monocytes 0.8 thou/uL (0.11-0.59); #Neutrophils 3.8 thou/uL (1.40-6.50); %Basophils 0.8 % (0.0-1.0); %Eosinophils 1.8 % (0.0-10.0); %Lymphocytes 32.2 % (21.0-51.0); %Monocytes 11.5 % (0.0-10.0); %Neutrophils 53.8 % (42.0-75.0); Mean Corpuscular HGB CONC 32.8 g/dL (32.0-36.0); Mean Corpuscular Hemoglobin 30.3 pg (27.0-31.0); Mean Corpuscular Volume 92.4 fL (78.0-98.0); Mean Platelet Volume 7.8 fL (7.4-10.4); Platelet Count 177 thou/uL (130-400); RBC Distribution Width 12.7 % (11.5-14.5); Red Blood Cell (RBC) Count 4.96 mill/uL (4.70-6.10)
[2020-02-06] MEDS: Pancrelipase DR 12000 1 CAP PO SCH ×3 (05:53→17:04)
[2020-02-06] MEDS: Sodium Chloride 256 MEQ in Sterile Water Injection 936 ML IV SCH ×3 (05:55→13:15)
[2020-02-06 05:58] LABS: Anion Gap 12 mmol/L (10-20); BUN (Urea Nitrogen) 7 mg/dL (8.4-25.7); Calc. Creatinine Clearance 187 mL/min (70-130); Calcium 8.9 mg/dL (7.8-10.44); Carbon Dioxide 23 mmol/L (22-29); Chloride 105 mmol/L (98-107); Estimated GFR-MDRD Greater than 90; Glucose 98 mg/dL (70-105); Magnesium 2.1 mg/dL (1.6-2.6); Potassium 3.9 mmol/L (3.5-5.1); Sodium 136 mmol/L (136-145)
[2020-02-06 06:04] VITALS: BMI 35.0
[2020-02-06] MEDS: levETIRAcetam 500 mg/5 ml Oral Solution PO SCH (08:05)
[2020-02-06] MEDS: Sodium Chloride 1 GM TAB PO SCH ×3 (08:05→17:04)
[2020-02-06] MEDS: Potassium Chloride 20 MEQ TAB PO SCH ×2 (08:05→17:04)
--- NOTE | 2020-02-06 09:25 | PDOC.HOSPP ---
- Subjective Encounter Date: 02/06/20 Encounter Time: 09:25 Subjective: Patient seen and examined for med mngt. No new complaints. No overnight events - Objective Vital Signs & Weight: Vital Signs (12 hours) Temp Pulse Resp BP Pulse Ox 02/06/20 08:00 97 02/06/20 07:00 98.1 F 76 16 135/83 97 02/06/20 04:22 98.4 F 82 16 134/93 H 98 02/05/20 23:51 98.4 F 85 16 143/98 H 97 Weight Admit Weight 272 lb Weight 265 lb 6.4 oz Most Recent Monitor Data Heart Rate from ECG 92 NIBP 147/95 NIBP BP-Mean 112 Respiration from ECG 16 SpO2 94 I&O: 02/05/20 02/06/20 02/07/20 06:59 06:59 06:59 Intake Total 1678 1920 Output Total 850 Balance 828 1920 Result Diagrams: 02/06/20 05:20 02/06/20 05:20 Hospitalist ROS - Review of Systems Respiratory: denies: cough, dry, shortness of breath, hemoptysis, SOB with excertion, pleuritic pain, sputum, wheezing, other Cardiovascular: denies: chest pain, palpitations, orthopnea, paroxysmal noc. dyspnea, edema, light headedness, other Gastrointestinal: denies: nausea, vomiting, abdominal pain, diarrhea, constipation, melena, hematochezia, other - Medication Medications: Active Medications Generic Name Dose Route Start Last Admin Trade Name Freq PRN Reason Stop Dose Admin Acetaminophen 650 mg 01/24/20 19:48 02/03/20 08:35 Tylenol PO 650 mg Q4H PRN Administration Headache/Fever/Mild Pain (1-3) Hydrocodone Bitart/Acetaminophen 1 tab 01/24/20 19:48 02/02/20 12:51 [place] 7.5/325 PO 1 tab Q4H PRN Administration Moderate Pain (4-6) Hydrocodone Bitart/Acetaminophen 2 tab 01/24/20 19:48 02/06/20 02:27 [place] 7.5/325 PO 2 tab Q4H PRN Administration Severe Pain (7-10) Lipase/Protease/Amylase 6 cap 01/31/20 11:30 02/06/20 05:[address] [place] [id number] PO 6 cap AC MYRNA Administration Docusate Sodium 100 mg 01/24/20 19:48 01/29/20 20:58 Colace PO 100 mg BIDPRN PRN Administration Constipation Fentanyl 25 mcg 01/25/20 06:48 01/30/20 22:27 Sublimaze SLOW IVP 25 mcg Q2H PRN Administration Mild-Moderate Pain (1-5) Fentanyl 50 mcg 01/25/20 06:48 02/01/20 22:14 Sublimaze SLOW IVP 50 mcg Q2H PRN Administration Moderate to Severe Pain (6-10) Sodium Chloride 256 meq/ 1,000 mls @ 40 mls/hr 02/06/20 08:02 02/06/20 08:06 Sterile Water IV 1,000 mls .Q24H MYRNA Administration Levetiracetam 250 mg 02/03/20 21:00 02/06/20 08:05 Keppra Oral Solution PO 250 mg BID MYRNA Administration Nimodipine 60 mg 01/24/20 21:00 02/06/20 08:05 Nimodipine PO 60 mg Q4HR MYRNA Administration Ondansetron HCl 4 mg 01/24/20 19:48 02/02/20 16:57 Zofran IVP 4 mg Q4H PRN Administration Nausea/Vomiting Pantoprazole Sodium 40 mg 01/28/20 09:00 02/06/20 08:05 Protonix PO 40 mg BID MYRNA Administration Potassium Chloride 20 meq 01/28/20 08:00 02/06/20 08:05 K-Dur PO 20 meq BID-WM MYRNA Administration Promethazine HCl 25 mg 01/24/20 19:48 01/31/20 19:37 Phenergan PO 25 mg Q4H PRN Administration Nausea/Vomiting Sodium Chloride 2 gm 02/02/20 06:58 02/06/20 08:05 Sodium Chloride PO 2 gm TID-WM MYRNA Administration - Exam General Appearance: NAD Heart: RRR, no gallops Respiratory: no wheezes, no ronchi Gastrointestinal: non-tender, non-distended, normal bowel sounds Extremities: no cyanosis, no clubbing Hosp A/P - Plan DVT proph w/SCDs SAH JJ HTN Obesity BMI 37.4 Hyponatremia Hypokalemia - replaced PLAN: On Nimodipine/hypertonic saline @40 ml/hr with salt tab Cont other meds as above Counselled to be compliant with CPAP
--- NOTE | 2020-02-06 10:14 | PRG ---
DATE OF SERVICE: 02/06/2020 TIME SEEN: 0900 hours. SUBJECTIVE: Mr. 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 This morning again, he appears to be in excellent condition, has no lateralizing neurologic findings nor any deficits. He walked yesterday 1200 feet with walking program. He denies any visual troubles. Sodium yesterday was 137, we dropped his 1-1/2 normal saline at 60 mL an hour from 80 mL an hour this morning. His sodium is 136, we will continue to drop this to 40 mL an hour today and recheck this afternoon. The patient is very motivated to get home. As long as he does not have a significant drop in his sodium, we may be able to accommodate this. We will check back and later after lab draw. Job ID: [id number]
--- NOTE | 2020-02-06 11:15 | PRG ---
DATE OF SERVICE: 02/06/2020 SUBJECTIVE: Mr. Oliveros continues to do quite well, recovering from aneurysmal subarachnoid hemorrhage, status post coiling. Over the last 48 hours, he has continued to diminish the rate of his hypertonic saline. His sodiums have dropped a little bit, but have been relatively stable. Certainly from a neurologic perspective, he has done extraordinarily well with no concerns and no complaints. He is very eager to get home. He has been mobilizing well and independently. Our plan will be to discharge him later today or tomorrow morning. Job ID: [id number]
[2020-02-06 15:10] VITALS: BP 129/80; TEMP 98.2
[2020-02-06 18:26] LABS: Anion Gap 13 mmol/L (10-20); BUN (Urea Nitrogen) 9 mg/dL (8.4-25.7); Calc. Creatinine Clearance 175 mL/min (70-130); Calcium 9.7 mg/dL (7.8-10.44); Carbon Dioxide 27 mmol/L (22-29); Chloride 104 mmol/L (98-107); Estimated GFR-MDRD Greater than 90; Glucose 111 mg/dL (70-105); Potassium 4.1 mmol/L (3.5-5.1); Sodium 140 mmol/L (136-145)
--- NOTE | 2020-02-06 19:10 | PRG ---
DATE OF SERVICE: 02/06/2020 SUBJECTIVE: Gregory Oliveros said he had two brief episodes of diplopia this morning, but they only lasted less than a minute. OBJECTIVE: VITAL SIGNS: He is afebrile, heart rate is 80, respiratory rate is 16, oximetry is 96% on room air, blood pressure 129/80. LUNGS: Clear. HEART: Regular rhythm. ABDOMEN: Soft. IMPRESSION: Post aneurysmal coiling, vasospasm that is becoming less frequent and of a lesser severity. He does not have a conjugate gaze when I saw him today. Overall, he appears to be stable. We will sign off. Job ID: [id number]
== END 2020-02-06 18:44 | disposition home or self-care (01) | DRG 21 ==
LOC: CCU 20:35 → 2SE 01-28 23:00 → CCU 01-31 08:22 → SURG B 02-04 13:22
PROVIDERS: ADMIT Neurological Surgery; ATTEND Neurological Surgery
PROC: 03LG3DZ Occlusion of Intracranial Artery with Intraluminal Device, Percutaneous Approach (ICD-10-PCS; principal; 2020-01-25)
PROC: 02HV33Z Insertion of Infusion Device into Superior Vena Cava, Percutaneous Approach (ICD-10-PCS; 2020-01-31)
PROC: B548ZZA Ultrasonography of Superior Vena Cava, Guidance (ICD-10-PCS; 2020-01-31)
DX: I60.6 Nontraumatic subarachnoid hemorrhage from other intracranial arteries (principal); I67.848 Other cerebrovascular vasospasm and vasoconstriction; E87.1 Hypo-osmolality and hyponatremia; I10 Essential (primary) hypertension; G47.33 Obstructive sleep apnea (adult) (pediatric); E66.9 Obesity, unspecified; K83.4 Spasm of sphincter of Oddi; E78.5 Hyperlipidemia, unspecified; E87.6 Hypokalemia; H53.2 Diplopia; Z68.37 Body mass index [BMI] 37.0-37.9, adult; Z88.5 Allergy status to narcotic agent; Z88.1 Allergy status to other antibiotic agents; Z90.49 Acquired absence of other specified parts of digestive tract; Z88.8 Allergy status to other drugs, medicaments and biological substances
CPT/HCPCS: 36415; 36416; 36569; 61624; 70450; 71045; 71275; 80048; 81003; 83735; 83880; 84295; 84484; 85025; 93005; 93010; 93306; 93970; A4217; C1751; C1887; C9113; J0360; J1100; J1644; J1940; J1953; J2001; J2270; J2405; J2704; J3010; Q0169; Q9967

== ENCOUNTER 2020-02-21 09:41 | Outpatient (CLI) | payer OTHER, BC ==
--- NOTE | 2020-02-21 11:29 | CT ---
CT BRAIN WITHOUT CONTRAST: HISTORY: Double vision. Followup coiling of aneurysm and subarachnoid hemorrhage. COMPARISON: 02/03/2020. FINDINGS: A coil is again seen anterior to the yelena. No evidence of acute infarct, hemorrhage, midline shift, or abnormal extraaxial fluid collections are seen. The ventricular size is normal and the basilar ci sterns patent. There is mucosal disease in the paranasal sinuses. The bony calvarium is intact. IMPRESSION: Stable exam. No CT evidence of acute intracranial process. POS: [facility]
== END 2020-02-21 09:42 | disposition home or self-care (01) ==
LOC: SCSCT 09:41
PROVIDERS: ATTEND Neurological Surgery
DX: I60.9 Nontraumatic subarachnoid hemorrhage, unspecified (principal); I72.9 Aneurysm of unspecified site; H53.30 Unspecified disorder of binocular vision
CPT/HCPCS: 70450

== ENCOUNTER 2021-03-23 15:47 | Outpatient (CLI) | payer OTHER, BC ==
[2021-03-23 16:28] LABS: Anion Gap 13 mmol/L (10-20); BUN (Urea Nitrogen) 16 mg/dL (8.4-25.7); Calc. Creatinine Clearance 0 mL/min (70-130); Calcium 9.5 mg/dL (7.8-10.44); Carbon Dioxide 24 mmol/L (22-29); Chloride 108 mmol/L (98-107); Glucose 100 mg/dL (70-105); Potassium 3.5 mmol/L (3.5-5.1); Sodium 141 mmol/L (136-145)
== END 2021-03-23 15:48 | disposition home or self-care (01) ==
LOC: LABBT 15:47
PROVIDERS: ATTEND Neurological Surgery
DX: Z01.812 Encounter for preprocedural laboratory examination (principal); I72.9 Aneurysm of unspecified site
CPT/HCPCS: 80048

== ENCOUNTER 2021-03-29 05:58 | Day surgery (SDC) | payer OTHER, BC ==
[2021-03-27 08:51] VITALS: BMI 37.7
[2021-03-29] MEDS ORDERED: Heparin 10,000 UNITS/ 10 ML VIAL ONE (06:34)
[2021-03-29] MEDS ORDERED: Lidocaine 1% (PF) 30 ML VIAL ONE (06:35)
[2021-03-29] MEDS ORDERED: Midazolam HCl 2 mg/2 ml Vial ONE (07:16)
[2021-03-29] MEDS ORDERED: Iopamidol 370 76% 100 ML VIAL ONE (11:51)
== END 2021-03-29 10:17 | disposition home or self-care (01) ==
LOC: CCL 05:58
PROVIDERS: ATTEND Neurological Surgery
PROC: B31D1ZZ Fluoroscopy of Right Vertebral Artery using Low Osmolar Contrast (ICD-10-PCS; principal; 2021-03-29)
DX: I67.1 Cerebral aneurysm, nonruptured (principal); Z79.899 Other long term (current) drug therapy; Z88.1 Allergy status to other antibiotic agents; Z88.5 Allergy status to narcotic agent; Z88.8 Allergy status to other drugs, medicaments and biological substances
CPT/HCPCS: 36217; 36223; 99152; J1644; J2001; J2250; Q9967

== ENCOUNTER 2021-06-11 19:49 | Emergency (ER) | payer OTHER, BC ==
[2021-06-11 20:57] LABS: #Basophils 0.1 thou/uL (0.0-0.2); #Lymphocytes 2.9 thou/uL (1.20-3.40); #Neutrophils 7.1 thou/uL (1.40-6.50); %Basophils 0.5 % (0.0-1.0); %Eosinophils 0.3 % (0.0-10.0); %Monocytes 8.7 % (0.0-10.0); %Neutrophils 64.5 % (42.0-75.0); Hemoglobin 16.9 g/dL (14.0-18.0); Mean Corpuscular Hemoglobin 32.3 pg (27.0-31.0); Mean Corpuscular Volume 89.8 fL (78.0-98.0); Mean Platelet Volume 7.7 fL (7.4-10.4); Platelet Count 196 thou/uL (130-400); RBC Distribution Width 13.1 % (11.5-14.5); Red Blood Cell (RBC) Count 5.24 mill/uL (4.70-6.10); White Blood Cell (WBC) Count 11.1 thou/uL (4.8-10.8)
[2021-06-11 21:22] LABS: ALT (SGPT) 43 U/L (8-55); AST (SGOT) 29 U/L (5-34); Albumin 4.3 g/dL (3.5-5.0); Alkaline Phosphatase 104 U/L (40-110); Anion Gap 14 mmol/L (10-20); BUN (Urea Nitrogen) 16 mg/dL (8.4-25.7); Bilirubin, Total 0.4 mg/dL (0.2-1.2); Calc. Creatinine Clearance 0 mL/min (70-130); Calcium 9.3 mg/dL (7.8-10.44); Carbon Dioxide 22 mmol/L (22-29); Chloride 108 mmol/L (98-107); Globulin 2.6 g/dL (2.4-3.5); Glucose 91 mg/dL (70-105); Lipase 30 U/L (8-78); Potassium 3.9 mmol/L (3.5-5.1); Protein, Total 6.9 g/dL (6.0-8.3); Sodium 140 mmol/L (136-145)
[2021-06-12 13:56] LABS: SARS-CoV-2 PCR by NAA Not Detected (NotDetected)
== END 2021-06-11 22:49 | disposition home or self-care (01) ==
LOC: ERS 19:49
DX: J06.9 Acute upper respiratory infection, unspecified (principal); Z20.822 Contact with and (suspected) exposure to COVID-19
CPT/HCPCS: 36415; 71045; 80053; 83690; 84484; 85025; 85379; 93005; U0003; U0005

== ENCOUNTER 2022-02-18 18:16 | Inpatient (IN) | payer OTHER, BC ==
[2022-02-18] MEDS ORDERED: Morphine 4 MG/ML VIAL ONE ×2 (19:30→22:17)
[2022-02-18] MEDS ORDERED: Ondansetron PF 4 MG/2 ML Vial ONE ×2 (19:30→21:00)
[2022-02-18 19:32] LABS: #Eosinphils 0.1 thou/uL (0.0-0.7); #Lymphocytes 2.7 thou/uL (1.20-3.40); #Monocytes 0.5 thou/uL (0.11-0.59); #Neutrophils 4.1 thou/uL (1.40-6.50); %Basophils 0.6 % (0.0-1.0); %Eosinophils 1.3 % (0.0-10.0); %Lymphocytes 36.3 % (21.0-51.0); %Monocytes 6.6 % (0.0-10.0); %Neutrophils 55.3 % (42.0-75.0); Hemoglobin 17.1 g/dL (14.0-18.0); Mean Corpuscular HGB CONC 35.1 g/dL (32.0-36.0); Mean Corpuscular Hemoglobin 32.6 pg (27.0-31.0); Mean Corpuscular Volume 92.7 fL (78.0-98.0); Mean Platelet Volume 7.6 fL (7.4-10.4); Platelet Count 180 thou/uL (130-400); RBC Distribution Width 12.5 % (11.5-14.5); Red Blood Cell (RBC) Count 5.26 mill/uL (4.70-6.10); White Blood Cell (WBC) Count 7.5 thou/uL (4.8-10.8)
[2022-02-18 19:53] LABS: ALT (SGPT) 32 U/L (8-55); AST (SGOT) 25 U/L (5-34); Albumin 4.4 g/dL (3.5-5.0); Alkaline Phosphatase 93 U/L (40-110); Anion Gap 15 mmol/L (10-20); BUN (Urea Nitrogen) 14 mg/dL (8.4-25.7); Bilirubin, Total 0.6 mg/dL (0.2-1.2); Calc. Creatinine Clearance 0 mL/min (70-130); Calcium 9.3 mg/dL (7.8-10.44); Carbon Dioxide 21 mmol/L (22-29); Chloride 109 mmol/L (98-107); Globulin 2.9 g/dL (2.4-3.5); Glucose 92 mg/dL (70-105); Lipase 22 U/L (8-78); Potassium 3.7 mmol/L (3.5-5.1); Protein, Total 7.3 g/dL (6.0-8.3); Sodium 141 mmol/L (136-145)
[2022-02-18 20:25] LABS: Bacteria/HPF None Seen HPF (None Seen); Bilirubin Negative (Negative); Blood, Urine 1+ (Negative); Clarity Clear (Clear); Glucose, Urine (Dipstick) Normal (Negative); Ketone, Urine Negative (Negative); Leukocyte Negative Leu/uL (Negative); Mucous/LPF Rare LPF (<2+); Nitrite Negative (Negative); Protein, Urine (Dipstick) Negative (Neg-Trace); Specific Gravity, Urine 1.021 (1.002-1.036); Squamous Epithelial 0-3 HPF (0-3); Urobilinogen Normal mg/dL (Less than 2); WBC/HPF 0-3 HPF (0-3)
[2022-02-18] MEDS ORDERED: Promethazine HCl 12.5 MG in Sodium Chloride 0.9% 50 ML IVPB SCH (21:15)
[2022-02-19 00:13] VITALS: BMI 37.3
[2022-02-19] MEDS: Sodium Chloride 0.9% 1,000 ML IV SCH ×5 (00:31→20:16)
[2022-02-19 01:59] LABS: SARS-CoV-2 NAA Rapid Test Not Detected (NotDetected)
[2022-02-19] MEDS: Ondansetron PF 4 MG/2 ML Vial IVP PRN ×4 (02:32→20:15)
[2022-02-19] MEDS: Morphine 4 MG/ML VIAL SLOW IVP PRN ×6 (02:32→22:03)
[2022-02-19] MEDS ORDERED: Loperamide HCl 2 MG CAP PO PRN (07:57)
[2022-02-19] MEDS ORDERED: Dextrose 5% in Water 1,000 ML IV PRN (08:00)
[2022-02-19] MEDS ORDERED: Dextrose 50% Abboject 50 ML SYRINGE SLOW IVP PRN (08:00)
[2022-02-19] MEDS ORDERED: Non-Formulary Item 1 EACH (Rimegepant Sulfate [Nurtec Odt] 75 MG Tab.Rapdis) PO SCH (08:15)
[2022-02-19] MEDS: Pantoprazole 40 MG VIAL IVP SCH ×2 (08:31→20:15)
[2022-02-19] MEDS ORDERED: Non-Formulary Item 1 EACH (Topiramate [Topiramate] 50 MG Tablet) PO SCH (09:00)
[2022-02-19] MEDS ORDERED: Non-Formulary Item 1 EACH (Losartan Potassium [Cozaar] 50 MG Tablet) PO SCH (09:00)
[2022-02-19] MEDS: Losartan 25 MG TAB PO SCH (10:14)
[2022-02-19] MEDS: Topiramate 25 MG TAB PO SCH (10:15)
[2022-02-19 10:42] LABS: Phosphorus 2.4 mg/dL (2.3-4.7)
[2022-02-19] MEDS: Promethazine HCl 12.5 MG in Sodium Chloride 0.9% 50 ML IVPB PRN ×2 (11:48→17:45)
[2022-02-19] MEDS: Pancrelipase DR 12,000 1 CAP PO SCH ×2 (11:48→17:56)
[2022-02-19] MEDS: Rimegepant Sulfate [Nurtec Odt] 75 MG Tab.Rapdis PO SCH ×2 (13:59→18:00)
[2022-02-19] MEDS ORDERED: Dicyclomine 20 MG/2 ML VIAL IM SCH (16:39)
[2022-02-20] MEDS: Promethazine HCl 12.5 MG in Sodium Chloride 0.9% 50 ML IVPB PRN ×2 (00:29→07:34)
[2022-02-20] MEDS: Ondansetron PF 4 MG/2 ML Vial IVP PRN ×4 (03:45→21:35)
[2022-02-20] MEDS: Sodium Chloride 0.9% 1,000 ML IV SCH ×2 (03:45→11:47)
[2022-02-20] MEDS: Morphine 4 MG/ML VIAL SLOW IVP PRN ×2 (03:53→07:46)
[2022-02-20 06:13] LABS: #Eosinphils 0.1 thou/uL (0.0-0.7); #Lymphocytes 1.7 thou/uL (1.20-3.40); #Monocytes 0.5 thou/uL (0.11-0.59); #Neutrophils 3.4 thou/uL (1.40-6.50); %Basophils 0.6 % (0.0-1.0); %Eosinophils 1.9 % (0.0-10.0); %Lymphocytes 29.6 % (21.0-51.0); %Monocytes 8.9 % (0.0-10.0); Hemoglobin 15.9 g/dL (14.0-18.0); Mean Corpuscular HGB CONC 33.9 g/dL (32.0-36.0); Mean Corpuscular Volume 94.5 fL (78.0-98.0); Mean Platelet Volume 7.5 fL (7.4-10.4); Platelet Count 138 thou/uL (130-400); RBC Distribution Width 12.4 % (11.5-14.5); Red Blood Cell (RBC) Count 4.97 mill/uL (4.70-6.10); White Blood Cell (WBC) Count 5.8 thou/uL (4.8-10.8)
[2022-02-20 06:55] LABS: Calcium 8.3 mg/dL (7.8-10.44); Glucose 80 mg/dL (70-105)
[2022-02-20 06:57] LABS: Carbon Dioxide 24 mmol/L (22-29)
[2022-02-20 06:59] LABS: Calc. Creatinine Clearance 172 mL/min (70-130)
[2022-02-20 07:00] LABS: BUN (Urea Nitrogen) 7 mg/dL (8.4-25.7)
[2022-02-20 07:01] LABS: Lipase 17 U/L (8-78)
[2022-02-20] MEDS: Pancrelipase DR 12,000 1 CAP PO SCH ×3 (07:07→18:54)
[2022-02-20 07:13] LABS: Anion Gap 12 mmol/L (10-20)
[2022-02-20] MEDS: Pantoprazole 40 MG VIAL IVP SCH ×2 (07:45→21:35)
[2022-02-20] MEDS: Topiramate 25 MG TAB PO SCH (07:46)
[2022-02-20] MEDS: Losartan 25 MG TAB PO SCH (07:46)
[2022-02-20 08:47] LABS: Chloride 109 mmol/L (98-107); Potassium 3.9 mmol/L (3.5-5.1); Sodium 140 mmol/L (136-145)
[2022-02-20] MEDS ORDERED: Morphine CADD 1 MG/ML CADD IVPB PRN (10:25)
[2022-02-20] MEDS ORDERED: diphenhydrAMINE 25 MG CAP PO PRN (10:25)
[2022-02-20] MEDS ORDERED: Naloxone HCl 0.4 mg/ml Vial IV PRN (10:25)
[2022-02-20] MEDS ORDERED: Communication Order-Pharmacy FS SCH (10:30)
[2022-02-20] MEDS ORDERED: Morphine Sulfate 100 MG in Dextrose 5% in Water 98 ML IV SCH (11:00)
[2022-02-20] MEDS: Promethazine HCl 25 MG/ML VIAL IM PRN ×2 (14:14→23:01)
[2022-02-21] MEDS: Ondansetron PF 4 MG/2 ML Vial IVP PRN ×3 (03:16→17:28)
[2022-02-21] MEDS: Promethazine HCl 25 MG/ML VIAL IM PRN ×3 (05:56→22:24)
[2022-02-21 05:57] LABS: #Eosinphils 0.2 thou/uL (0.0-0.7); #Lymphocytes 1.9 thou/uL (1.20-3.40); #Monocytes 0.8 thou/uL (0.11-0.59); #Neutrophils 3.6 thou/uL (1.40-6.50); %Basophils 0.4 % (0.0-1.0); %Eosinophils 2.5 % (0.0-10.0); %Lymphocytes 29.8 % (21.0-51.0); %Monocytes 11.7 % (0.0-10.0); %Neutrophils 55.7 % (42.0-75.0); Hemoglobin 16.4 g/dL (14.0-18.0); Mean Platelet Volume 4.3 fL (7.4-10.4); Platelet Count 157 thou/uL (130-400); RBC Distribution Width 12.5 % (11.5-14.5); Red Blood Cell (RBC) Count 5.13 mill/uL (4.70-6.10); White Blood Cell (WBC) Count 6.4 thou/uL (4.8-10.8)
[2022-02-21 05:58] LABS: Anion Gap 12 mmol/L (10-20); BUN (Urea Nitrogen) 7 mg/dL (8.4-25.7); Calc. Creatinine Clearance 170 mL/min (70-130); Calcium 8.6 mg/dL (7.8-10.44); Carbon Dioxide 23 mmol/L (22-29); Chloride 109 mmol/L (98-107); Glucose 81 mg/dL (70-105); Potassium 3.8 mmol/L (3.5-5.1); Sodium 140 mmol/L (136-145)
[2022-02-21] MEDS: Rimegepant Sulfate [Nurtec Odt] 75 MG Tab.Rapdis PO SCH (09:16)
[2022-02-21] MEDS: Pancrelipase DR 12,000 1 CAP PO SCH ×2 (09:16→17:03)
[2022-02-21] MEDS: Losartan 25 MG TAB PO SCH (09:17)
[2022-02-21] MEDS: Pantoprazole 40 MG VIAL IVP SCH ×2 (09:18→21:45)
[2022-02-21] MEDS: Topiramate 25 MG TAB PO SCH (09:18)
[2022-02-21 21:20] VITALS: BP 135/89; TEMP 98.7
== END 2022-02-21 22:50 | disposition short-term general hospital (02) | DRG 439 ==
LOC: ERS 18:16 → SURG B 22:51 → INTOOBSV 02-20 12:25 → OBSVTOIN 02-20 12:25
PROVIDERS: ADMIT Internal Medicine; ATTEND Nurse Practitioner Acute Care
DX: K85.00 Idiopathic acute pancreatitis without necrosis or infection (principal); E87.2 Acidosis; Z20.822 Contact with and (suspected) exposure to COVID-19; K86.1 Other chronic pancreatitis; I10 Essential (primary) hypertension; K86.89 Other specified diseases of pancreas; E86.0 Dehydration; Z98.890 Other specified postprocedural states; Z79.899 Other long term (current) drug therapy; Z88.1 Allergy status to other antibiotic agents; Z88.8 Allergy status to other drugs, medicaments and biological substances; Z90.49 Acquired absence of other specified parts of digestive tract; Z95.828 Presence of other vascular implants and grafts
CPT/HCPCS: 36415; 36416; 71045; 74177; 80048; 80053; 81003; 81015; 83690; 83735; 84100; 85025; 96361; 96365; 96375; 96376; C9113; J0500; J2270; J2274; J2405; J2550; J7050; J7070; U0002

== ENCOUNTER 2022-03-06 10:27 | Outpatient (CLI) | payer OTHER | END 2022-03-06 10:28 | disposition home or self-care (01) | LOC: BICRAD 10:27 | PROVIDERS: ATTEND Internal Medicine Gastroenterology | DX: K86.1 Other chronic pancreatitis (principal) | CPT/HCPCS: 74018 ==

== ENCOUNTER 2022-03-08 15:11 | Emergency (ER) | payer OTHER, BC ==
[2022-03-08 15:35] LABS: #Eosinphils 0.1 thou/uL (0.0-0.7); #Lymphocytes 2.7 thou/uL (1.20-3.40); #Monocytes 0.6 thou/uL (0.11-0.59); #Neutrophils 4.9 thou/uL (1.40-6.50); %Basophils 0.4 % (0.0-1.0); %Eosinophils 1.5 % (0.0-10.0); %Lymphocytes 32.3 % (21.0-51.0); %Monocytes 7.4 % (0.0-10.0); %Neutrophils 58.3 % (42.0-75.0); Hemoglobin 16.8 g/dL (14.0-18.0); Mean Corpuscular HGB CONC 34.2 g/dL (32.0-36.0); Mean Corpuscular Volume 93.4 fL (78.0-98.0); Mean Platelet Volume 7.8 fL (7.4-10.4); Platelet Count 165 thou/uL (130-400); RBC Distribution Width 12.3 % (11.5-14.5); Red Blood Cell (RBC) Count 5.27 mill/uL (4.70-6.10); White Blood Cell (WBC) Count 8.4 thou/uL (4.8-10.8)
[2022-03-08 16:02] LABS: ALT (SGPT) 39 U/L (8-55); AST (SGOT) 21 U/L (5-34); Albumin 4.3 g/dL (3.5-5.0); Alkaline Phosphatase 105 U/L (40-110); Anion Gap 11 mmol/L (10-20); BUN (Urea Nitrogen) 11 mg/dL (8.4-25.7); Bilirubin, Total 0.6 mg/dL (0.2-1.2); Calc. Creatinine Clearance 0 mL/min (70-130); Calcium 9.6 mg/dL (7.8-10.44); Carbon Dioxide 26 mmol/L (22-29); Chloride 107 mmol/L (98-107); Globulin 2.7 g/dL (2.4-3.5); Glucose 94 mg/dL (70-105); Lipase 29 U/L (8-78); Potassium 3.6 mmol/L (3.5-5.1); Sodium 140 mmol/L (136-145)
[2022-03-08] MEDS ORDERED: Metoclopramide HCl 10 MG/2 ML VIAL ONE (16:44)
[2022-03-08] MEDS ORDERED: Lidocaine Viscous Sol 2% 15 ml UD Cup ONE (16:44)
[2022-03-08] MEDS ORDERED: Mag-Al 1200 mg/1200 mg/30 ML UDCUP ONE (16:44)
[2022-03-08] MEDS ORDERED: Promethazine HCl 12.5 MG in Sodium Chloride 0.9% 50 ML IVPB SCH (18:00)
== END 2022-03-08 19:25 | disposition home or self-care (01) ==
LOC: ERS 15:11
DX: R10.11 Right upper quadrant pain (principal); R11.0 Nausea
CPT/HCPCS: 36415; 74177; 80053; 83690; 85025; 96365; 96367; J2550; J2765

== ENCOUNTER 2023-04-09 11:18 | Emergency (ER) | payer BC ==
[2023-04-09 11:47] LABS: #Eosinphils 0.1 thou/uL (0.0-0.7); #Monocytes 0.7 thou/uL (0.11-0.59); #Neutrophils 6.1 thou/uL (1.40-6.50); %Basophils 0.5 % (0.0-1.0); %Eosinophils 0.9 % (0.0-10.0); %Lymphocytes 21.2 % (21.0-51.0); %Monocytes 7.4 % (0.0-10.0); %Neutrophils 69.8 % (42.0-75.0); Hemoglobin 17.1 g/dL (14.0-18.0); Mean Corpuscular HGB CONC 34.6 g/dL (32.0-36.0); Mean Corpuscular Hemoglobin 31.2 pg (27.0-31.0); Mean Corpuscular Volume 90.1 fl (78.0-98.0); Mean Platelet Volume 10.1 fL (7.4-10.4); Platelet Count 171 10x3/uL (130-400); RBC Distribution Width 13.2 % (11.5-14.5); Red Blood Cell (RBC) Count 5.48 mill/uL (4.70-6.10); White Blood Cell (WBC) Count 8.8 10x3/uL (4.8-10.8)
[2023-04-09 12:12] LABS: ALT (SGPT) 30 U/L (8-55); AST (SGOT) 22 U/L (5-34); Albumin 4.4 g/dL (3.5-5.0); Alkaline Phosphatase 113 U/L (40-110); Anion Gap 15 mmol/L (10-20); BUN (Urea Nitrogen) 16 mg/dL (8.4-25.7); Bilirubin, Total 0.7 mg/dL (0.2-1.2); Calc. Creatinine Clearance 0 mL/min (70-130); Carbon Dioxide 23 mmol/L (22-29); Chloride 107 mmol/L (98-107); Estimated GFR 73; Glucose 133 mg/dL (70-105); Lipase 16 U/L (8-78); Potassium 3.6 mmol/L (3.5-5.1); Protein, Total 7.4 g/dL (6.0-8.3); Sodium 141 mmol/L (136-145)
[2023-04-09] MEDS ORDERED: Morphine 4 MG/ML VIAL ONE ×2 (12:13→15:01)
[2023-04-09] MEDS ORDERED: Ondansetron PF 4 MG/2 ML Vial ONE (12:13)
[2023-04-09] MEDS ORDERED: Iopamidol-370 76% 500 ML MDV (1 ML CHARGE) ONE (12:54)
[2023-04-09] MEDS ORDERED: Ketorolac Tromethamine 30 MG/ML VIAL ONE (12:54)
[2023-04-09 14:33] LABS: Bacteria/HPF None Seen HPF (None Seen); Bilirubin Negative (Negative); Blood, Urine 3+ (Negative); Clarity Clear (Clear); Glucose, Urine (Dipstick) Normal (Negative); Ketone, Urine 10 mg/dL (Negative); Leukocyte Negative Leu/uL (Negative); Nitrite Negative (Negative); Protein, Urine (Dipstick) 20 mg/dL (Neg-Trace); RBC/HPF Greater than 50 HPF (0-3); Squamous Epithelial None Seen HPF (0-3); Urobilinogen Normal mg/dL (Less than 2); pH, Urine 6.5 (5.0-9.0)
[2023-04-09 14:36] LABS: CAUTI Indications for Culture Dysuria,urgency,freq
[2023-04-09 14:38] LABS: Urine Culture Reflex No No
== END 2023-04-09 16:00 | disposition home or self-care (01) ==
LOC: ERS 11:18
DX: N13.2 Hydronephrosis with renal and ureteral calculous obstruction (principal); I10 Essential (primary) hypertension; R31.9 Hematuria, unspecified
CPT/HCPCS: 36415; 74177; 80053; 81001; 83690; 85025; 87086; 93005; 96361; 96374; 96375; 96376; J1885; J2270; J2405

== ENCOUNTER 2025-05-26 08:59 | Emergency (ER) | payer BC ==
[2025-05-26] MEDS ORDERED: Mag-Al 1200 mg/1200 mg/30 ML UDCUP ONE (09:43)
[2025-05-26] MEDS ORDERED: Ondansetron PF 4 MG/2 ML Vial ONE (09:43)
[2025-05-26] MEDS ORDERED: Lidocaine Viscous Sol 2% 15 ml UD Cup ONE (09:44)
[2025-05-26] MEDS ORDERED: HYDROcodone/Acetaminophen 5/325 mg Tablet ONE (10:44)
[2025-05-26] MEDS ORDERED: Dexamethasone 10 MG/ML VIAL ONE (10:44)
[2025-05-26] MEDS ORDERED: Ketorolac Tromethamine 30 MG (1 mL) VIAL ONE (10:44)
[2025-05-26 11:15] LABS: ALT (SGPT) 17 U/L (Less than 45); AST (SGOT) 19 U/L (11-34); Albumin 4.2 g/dL (3.1-4.5); Alkaline Phosphatase 128 U/L (40-110); Anion Gap 12 mmol/L (10-20); BUN (Urea Nitrogen) 17 mg/dL (8.4-25.7); Bilirubin, Total 0.3 mg/dL (0.3-1.2); CK (CPK) 46 U/L (30-200); Calc. Creatinine Clearance 0 mL/min (70-130); Calcium 9.0 mg/dL (7.8-10.44); Carbon Dioxide 21 mmol/L (22-29); Chloride 117 mmol/L (98-107); Globulin 2.5 g/dL (2.4-3.5); Glucose 96 mg/dL (70-105); Potassium 3.8 mmol/L (3.5-5.1); Sodium 146 mmol/L (136-145)
[2025-05-26 11:25] LABS: #Basophils 0.03 10x3/uL (0.0-0.2); #Eosinophils 0.06 10x3/uL (0.0-0.7); #Monocytes 0.63 10x3/uL (0.11-0.59); #Neutrophils 3.71 10x3/uL (1.40-6.50); %Basophils 0.5 % (0.0-1.0); %Eosinophils 0.9 % (0.0-10.0); %Lymphocytes 32.2 % (21.0-51.0); %Monocytes 9.6 % (0.0-10.0); %Neutrophils 56.3 % (42.0-75.0); Hematocrit 46.6 % (42.0-52.0); Hemoglobin 15.8 g/dL (14.0-18.0); Mean Corpuscular Hemoglobin 29.9 pg (27.0-31.0); Mean Corpuscular Volume 88.3 fL (78.0-98.0); Platelet Count 133 10x3/uL (130-400); Red Blood Cell (RBC) Count 5.28 mill/uL (4.70-6.10); White Blood Cell (WBC) Count 6.58 10x3/uL (4.8-10.8)
[2025-05-26] MEDS ORDERED: Pregabalin 50 MG CAP PO SCH (15:00)
[2025-05-26] MEDS ORDERED: carBAMazepine 100 MG/5 ML UDCUP PO SCH (15:00)
== END 2025-05-26 16:23 | disposition home or self-care (01) ==
LOC: ERS 08:59
DX: G50.0 Trigeminal neuralgia (principal); Z55.6 Problems related to health literacy
CPT/HCPCS: 70491; 80053; 82550; 85025; 96374; 96375; 96376; J1100; J1885; J2270; J2405

== ENCOUNTER 2025-06-30 15:49 | Emergency (ER) | payer BC ==
[2025-06-30] MEDS ORDERED: Ondansetron PF 4 MG/2 ML Vial ONE (16:30)
[2025-06-30 16:35] LABS: Bacteria/HPF None Seen HPF (None Seen); CAUTI Indications for Culture Dysuria,urgency,freq; Glucose, Urine (Dipstick) Normal (Negative); Leukocyte 25 Leu/uL (Negative); Protein, Urine (Dipstick) 10 mg/dL (Neg-Trace); RBC/HPF 21-50 HPF (0-3); Specific Gravity, Urine 1.024 (1.002-1.036)
[2025-06-30 16:37] LABS: Urine Culture Reflex No No
[2025-06-30 17:35] LABS: #Basophils 0.04 10x3/uL (0.0-0.2); #Eosinophils 0.15 10x3/uL (0.0-0.7); #Monocytes 0.56 10x3/uL (0.11-0.59); #Neutrophils 3.74 10x3/uL (1.40-6.50); %Basophils 0.6 % (0.0-1.0); %Eosinophils 2.4 % (0.0-10.0); %Lymphocytes 29.1 % (21.0-51.0); %Monocytes 8.8 % (0.0-10.0); %Neutrophils 58.8 % (42.0-75.0); Hematocrit 48.6 % (42.0-52.0); Hemoglobin 16.7 g/dL (14.0-18.0); Mean Corpuscular Hemoglobin 30.3 pg (27.0-31.0); Mean Corpuscular Volume 88.0 fL (78.0-98.0); Platelet Count 127 10x3/uL (130-400); Red Blood Cell (RBC) Count 5.52 mill/uL (4.70-6.10); White Blood Cell (WBC) Count 6.36 10x3/uL (4.8-10.8)
[2025-06-30 17:52] LABS: ALT (SGPT) 20 U/L (Less than 45); AST (SGOT) 29 U/L (11-34); Albumin 4.2 g/dL (3.1-4.5); Alkaline Phosphatase 131 U/L (40-110); Anion Gap 17 mmol/L (10-20); BUN (Urea Nitrogen) 13 mg/dL (8.4-25.7); Bilirubin, Total 0.5 mg/dL (0.3-1.2); Calc. Creatinine Clearance 0 mL/min (70-130); Calcium 9.1 mg/dL (7.8-10.44); Carbon Dioxide 19 mmol/L (22-29); Chloride 108 mmol/L (98-107); Globulin 2.6 g/dL (2.4-3.5); Glucose 70 mg/dL (70-105); Lipase 19 U/L (8-78); Potassium 3.5 mmol/L (3.5-5.1); Sodium 140 mmol/L (136-145)
== END 2025-06-30 18:45 | disposition home or self-care (01) ==
LOC: ERS 15:49
DX: N13.2 Hydronephrosis with renal and ureteral calculous obstruction (principal); I10 Essential (primary) hypertension
CPT/HCPCS: 74176; 80053; 81001; 83690; 85025; 96361; 96374; 96375; J2270; J3010

== ENCOUNTER 2025-07-03 14:48 | Emergency (ER) | payer BC ==
[2025-07-03] MEDS ORDERED: Ketorolac Tromethamine 30 MG (1 mL) VIAL ONE (17:32)
[2025-07-03 17:44] LABS: #Basophils 0.04 10x3/uL (0.0-0.2); #Eosinophils 0.18 10x3/uL (0.0-0.7); #Monocytes 0.48 10x3/uL (0.11-0.59); #Neutrophils 2.75 10x3/uL (1.40-6.50); %Basophils 0.7 % (0.0-1.0); %Eosinophils 3.2 % (0.0-10.0); %Lymphocytes 37.8 % (21.0-51.0); %Monocytes 8.6 % (0.0-10.0); %Neutrophils 49.5 % (42.0-75.0); Hematocrit 47.0 % (42.0-52.0); Hemoglobin 16.0 g/dL (14.0-18.0); Mean Corpuscular Hemoglobin 30.0 pg (27.0-31.0); Mean Corpuscular Volume 88.2 fL (78.0-98.0); Platelet Count 126 10x3/uL (130-400); Red Blood Cell (RBC) Count 5.33 mill/uL (4.70-6.10); White Blood Cell (WBC) Count 5.56 10x3/uL (4.8-10.8)
[2025-07-03 18:39] LABS: ALT (SGPT) 18 U/L (Less than 45); AST (SGOT) 24 U/L (11-34); Albumin 3.9 g/dL (3.1-4.5); Alkaline Phosphatase 117 U/L (40-110); Anion Gap 13 mmol/L (10-20); BUN (Urea Nitrogen) 13 mg/dL (8.4-25.7); Bilirubin, Total 0.3 mg/dL (0.3-1.2); Calc. Creatinine Clearance 0 mL/min (70-130); Calcium 8.5 mg/dL (7.8-10.44); Carbon Dioxide 22 mmol/L (22-29); Chloride 116 mmol/L (98-107); Globulin 2.3 g/dL (2.4-3.5); Glucose 83 mg/dL (70-105); Potassium 3.3 mmol/L (3.5-5.1); Sodium 148 mmol/L (136-145)
[2025-07-03 19:12] LABS: Bacteria/HPF None Seen HPF (None Seen); CAUTI Indications for Culture Pelvic or flank pain; Glucose, Urine (Dipstick) Normal (Negative); Leukocyte Negative Leu/uL (Negative); Protein, Urine (Dipstick) Negative (Neg-Trace); RBC/HPF None Seen HPF (0-3); Specific Gravity, Urine 1.019 (1.002-1.036); WBC/HPF 0-3 HPF (0-3)
[2025-07-03 19:14] LABS: Urine Culture Reflex No No
== END 2025-07-03 20:07 | disposition home or self-care (01) ==
LOC: ERS 14:48
DX: N20.0 Calculus of kidney (principal); I10 Essential (primary) hypertension; Z79.899 Other long term (current) drug therapy
CPT/HCPCS: 74176; 80053; 81001; 85025; 96374; J1885